=== PATIENT | female | born 1955 | race Caucasian/White ===

== ENCOUNTER 2019-02-04 00:27 | Emergency (ER) | payer OTHER ==
[~2019-02-04] VITALS: Ht 170.2 cm; Wt 83.9 kg
[~2019-02-04 00:27] MED LIST: AML5T PO; ASPI81CH43 PO; ATOR80TA PO; CAR125T OR; FAM20T PO; GABA300C10 PO; INSLANTI SC; LIRA18IN2 SC; LISI40TA PO; METF-372 PO
[2019-02-04] MEDS ORDERED: SODIUM CHLORIDE 0.9% 1,000 ML IV ONE (09:56)
[2019-02-04] MEDS ORDERED: GABAPENTIN 300 MG CAP PO ONE (10:45)
[2019-02-04 13:11] LABS: Urine Bacteria NONE SEEN /hpf (None Seen); Urine Blood Negative /uL (Negative); Urine Specific Gravity 1.015 (1.001-1.035); Urine WBC 14 /hpf (0 - 5)
[2019-02-04 13:26] LABS: Basophils # (auto) 0 uL; Basophils % (auto) 0.3 % (0.0-2.0); Eosinophils # (auto) 0 uL; Eosinophils % (auto) 0.4 % (0.0-7.0); Hemoglobin 12.9 g/dL (12.2-16.2); Lymphocytes # (auto) 1.7 uL; Lymphocytes % (auto) 16.5 % (10.0-50.0); Mean Corpuscular Hemoglobin 27.7 pg (28.0-32.0); Mean Corpuscular Hgb Conc. 32.2 g/dL (32.0-36.0); Mean Corpuscular Volume 86.2 fL (80.0-100.0); Monocytes # (auto) 0.8 uL; Monocytes % (auto) 8.3 % (0.0-12.0); Neutrophils # (auto) 7.7 uL; Neutrophils % (auto) 74.5 % (37.0-80.0); Nucleated Red Blood Cells % 0.7 %; Platelet Count (auto) 208 10^3/uL (140-450); Red Blood Cells 4.65 10^6/uL (4.0-5.20); Red Cell Distribution Width 17.3 % (11.8-14.3); White Blood Cell 10.3 10^3/uL (4.4-10.8)
[2019-02-04 13:40] LABS: INR 1.18 (0.9-1.15)
[2019-02-04 13:43] LABS: Albumin 3.1 g/dL (3.4-5.0); Calcium 8.8 mg/dL (8.5-10.1); Potassium 3.4 mmol/L (3.5-5.1)
[2019-02-04 13:54] LABS: BUN/Creatinine Ratio 28.8; Bilirubin, Total 1.5 mg/dL (0.2-1.0); Total Protein 6.5 g/dL (6.4-8.2)
[2019-02-04 15:27] VITALS: BP 150/72
== END 2019-02-04 15:36 | disposition home or self-care (01) ==
LOC: EDBD 00:27 → ER 00:31
DX: N39.0 Urinary tract infection, site not specified (principal); F03.90 Unspecified dementia, unspecified severity, without behavioral disturbance, psychotic disturbance, mood disturbance, and anxiety; R41.82 Altered mental status, unspecified; I25.2 Old myocardial infarction; I11.0 Hypertensive heart disease with heart failure; I50.9 Heart failure, unspecified; J44.9 Chronic obstructive pulmonary disease, unspecified; Z79.4 Long term (current) use of insulin; Z88.8 Allergy status to other drugs, medicaments and biological substances
CPT/HCPCS: 36415; 70450; 71045; 80053; 81001; 83880; 84484; 85025; 85610; 85730; 93005; 96360; 96361; 99284; J7030

== ENCOUNTER 2019-02-06 10:55 | Inpatient (IN) | payer OTHER ==
[~2019-02-06] VITALS: Ht 162.6 cm; Wt 91.7 kg
[2019-02-06] MEDS ORDERED: IPRATROPIUM BROM 0.5 MG/2.5ML INH SOL HHN ONE (11:15)
[2019-02-06] MEDS ORDERED: ALBUTEROL SULF 2.5 MG/0.5ML(0.5%) NEB SOLN HHN ONE (11:15)
[2019-02-06] MEDS ORDERED: methylPREDNISolone SOD SUCC 125 MG/2 ML VL IV ONE (11:15)
[2019-02-06 12:04] LABS: Basophils # (auto) 0 uL; Basophils % (auto) 0.1 % (0.0-2.0); Eosinophils # (auto) 0 uL; Hematocrit 38.2 % (36.0-46.0); Hemoglobin 12.2 g/dL (12.2-16.2); Lymphocytes # (auto) 0.8 uL; Lymphocytes % (auto) 7.3 % (10.0-50.0); Mean Corpuscular Hemoglobin 27.5 pg (28.0-32.0); Mean Corpuscular Volume 86.2 fL (80.0-100.0); Monocytes # (auto) 0.5 uL; Monocytes % (auto) 4.4 % (0.0-12.0); Neutrophils % (auto) 88.2 % (37.0-80.0); Nucleated Red Blood Cells % 0.1 %; Platelet Count (auto) 191 10^3/uL (140-450); Red Blood Cells 4.43 10^6/uL (4.0-5.20); Red Cell Distribution Width 17.3 % (11.8-14.3); White Blood Cell 11.4 10^3/uL (4.4-10.8)
[2019-02-06 12:27] LABS: Albumin 3.1 g/dL (3.4-5.0); BUN/Creatinine Ratio 27.3; Bilirubin, Total 1.7 mg/dL (0.2-1.0); Calcium 8.7 mg/dL (8.5-10.1); Magnesium 2.1 mg/dL (1.6-2.6); Total Protein 6.5 g/dL (6.4-8.2)
[2019-02-06] MEDS ORDERED: MORPHINE SULF INJ 2 MG/ML SYRINGE 1ML IV PRN (14:00)
[2019-02-06] MEDS ORDERED: DEXTROSE (50%) 50ML SYRG IV PRN (14:00)
[2019-02-06] MEDS ORDERED: HYDROcodone-ACET 5/325MG TAB PO PRN (14:00)
[2019-02-06] MEDS ORDERED: NITROGLYCERIN 0.4 MG SL TAB SL PRN (14:00)
[2019-02-06] MEDS: SOD CHL 0.9%/ KCL 20MEQ 1,000 ML IV SCH (14:40)
[2019-02-06] MEDS ORDERED: InsuLIN REG 1unit/0.01ml Soln (100units/ml) SC SCH (16:00)
[2019-02-06] MEDS ORDERED: InsuLIN REG 1unit/0.01ml Soln (100units/ml) IV ONE (16:30)
[2019-02-06] MEDS ORDERED: InsuLIN REG 1unit/0.01ml Soln (100units/ml) SC ONE (16:30)
[2019-02-06 16:34] LABS: Urine Bacteria NONE SEEN /hpf (None Seen); Urine Blood Negative /uL (Negative); Urine Hyaline Cast FEW /lpf (0 - 2); Urine Specific Gravity 1.025 (1.001-1.035); Urine WBC 1 /hpf (0 - 5)
[2019-02-06] MEDS ORDERED: InsuLIN REG 1unit/0.01ml Soln (100units/ml) ONE (16:34)
[2019-02-06] MEDS: ACCU-CHEK COMFORT CURVE STRIP VI SCH ×2 (16:39→21:31)
[2019-02-06] MEDS: IPRATROPIUM BROM 0.5 MG/2.5ML INH SOL NEB SCH (18:56)
[2019-02-06] MEDS: ALBUTEROL SULF 2.5 MG/0.5ML(0.5%) NEB SOLN NEB SCH (18:56)
[2019-02-06] MEDS: InsuLIN REG 1unit/0.01ml Soln (100units/ml) SC SCH (21:31)
[2019-02-06] MEDS: methylPREDNISolone SOD SUCC 40 MG/ML VL IV SCH (22:34)
[2019-02-06 23:57] VITALS: BP 168/76
[2019-02-07] MEDS ORDERED: ENALAPRILAT 1.25 MG/ML-1ML VIAL IV ONE (01:00)
[2019-02-07] MEDS: InsuLIN REG 1unit/0.01ml Soln (100units/ml) SC SCH ×6 (01:02→21:09)
[2019-02-07] MEDS: ACCU-CHEK COMFORT CURVE STRIP VI SCH ×6 (01:03→21:08)
[2019-02-07] MEDS: SOD CHL 0.9%/ KCL 20MEQ 1,000 ML IV SCH ×2 (01:12→01:16)
[2019-02-07 03:41] LABS: BUN/Creatinine Ratio 27.1; Calcium 8.4 mg/dL (8.5-10.1)
[2019-02-07 04:01] LABS: Potassium 2.9 mmol/L (3.5-5.1)
[2019-02-07] MEDS ORDERED: FUROSEMIDE 20 MG/2 ML VIAL IV ONE (04:45)
[2019-02-07] MEDS: POTASSIUM CHL 20MEQ/100ML 100 ML IV SCH ×2 (05:12→06:47)
[2019-02-07] MEDS: ONDANSETRON HCL 4 MG/2 ML VIAL IV PRN (06:52)
[2019-02-07 06:59] LABS: Basophils # (auto) 0 uL; Basophils % (auto) 0.2 % (0.0-2.0); Eosinophils # (auto) 0 uL; Hematocrit 39.7 % (36.0-46.0); Hemoglobin 12.7 g/dL (12.2-16.2); Lymphocytes # (auto) 0.7 uL; Lymphocytes % (auto) 6.8 % (10.0-50.0); Mean Corpuscular Hemoglobin 27.8 pg (28.0-32.0); Mean Corpuscular Hgb Conc. 31.9 g/dL (32.0-36.0); Monocytes # (auto) 0.4 uL; Monocytes % (auto) 3.7 % (0.0-12.0); Neutrophils # (auto) 8.6 uL; Neutrophils % (auto) 89.3 % (37.0-80.0); Nucleated Red Blood Cells % 0.3 %; Platelet Count (auto) 181 10^3/uL (140-450); Red Blood Cells 4.57 10^6/uL (4.0-5.20); Red Cell Distribution Width 17.9 % (11.8-14.3); White Blood Cell 9.6 10^3/uL (4.4-10.8)
[2019-02-07] MEDS: ALBUTEROL SULF 2.5 MG/0.5ML(0.5%) NEB SOLN NEB SCH ×3 (07:10→18:04)
[2019-02-07] MEDS: IPRATROPIUM BROM 0.5 MG/2.5ML INH SOL NEB SCH ×3 (07:10→18:04)
[2019-02-07 07:14] LABS: BUN/Creatinine Ratio 23.9; Calcium 8.4 mg/dL (8.5-10.1); Potassium 3.3 mmol/L (3.5-5.1)
[2019-02-07] MEDS: FAMOTIDINE 20 MG TAB PO SCH (09:33)
[2019-02-07] MEDS: AZITHROMYCIN 500MG/ 250ML 250 ML IV SCH (09:33)
[2019-02-07] MEDS: cefTRIAXone 1GM/50ML D5W 50 ML IV SCH (09:34)
[2019-02-07] MEDS: methylPREDNISolone SOD SUCC 40 MG/ML VL IV SCH ×2 (09:36→23:15)
[2019-02-07] MEDS ORDERED: ALBUTEROL MEDNEB 2.5 mg/3ml NEB ONE (11:29)
[2019-02-07] MEDS ORDERED: ASPirin-EC 325mg tab PO ONE (13:00)
[2019-02-07] MEDS ORDERED: ATORVASTATIN 20 MG TAB PO ONE (13:00)
--- NOTE | 2019-02-07 13:59 | NUR ---
I faxed transfer request to [facility].
[2019-02-07] MEDS: ENOXAPARIN SOD 100 MG/1 ML SYRINGE SC SCH ×2 (14:52→23:17)
--- NOTE | 2019-02-07 14:55 | NUR ---
TRANSFER Shasta and I are both working on transferring this pt. I spoke to Carlita at [facility] and she stated to fax paperwork over to her at [phone] and ph # is [phone]. Carlita stated they are full at present and may have d/c tonight.
--- NOTE | 2019-02-07 15:14 | NUR ---
I called [facility] [phone] and spoke with warehouse receiving clerk Flor, she said they have no beds available at this time and have several patients waiting in their ER for a bed. I also spoke with Dr. Mora to let her know that most likely patient will not be transferred today but that we are working on it.
--- NOTE | 2019-02-07 15:22 | NUR ---
[facility] IS ON WILL CALL
[2019-02-07] MEDS ORDERED: FUROSEMIDE 40 MG/4 ML VIAL IV ONE (18:00)
[2019-02-08] VITALS (8 sets, daily range): BP systolic 138–149; BP diastolic 31–69
[2019-02-08] MEDS: ACCU-CHEK COMFORT CURVE STRIP VI SCH ×6 (00:17→20:00)
[2019-02-08] MEDS: InsuLIN REG 1unit/0.01ml Soln (100units/ml) SC SCH ×6 (00:18→21:07)
[2019-02-08] MEDS: MORPHINE SULF INJ 2 MG/ML SYRINGE 1ML IV PRN ×2 (01:57→18:34)
[2019-02-08] MEDS: ONDANSETRON HCL 4 MG/2 ML VIAL IV PRN (01:57)
[2019-02-08 05:48] LABS: Basophils # (auto) 0.1 uL; Basophils % (auto) 0.6 % (0.0-2.0); Eosinophils # (auto) 0 uL; Hematocrit 35.8 % (36.0-46.0); Hemoglobin 11.4 g/dL (12.2-16.2); Lymphocytes # (auto) 0.5 uL; Lymphocytes % (auto) 3.1 % (10.0-50.0); Mean Corpuscular Hemoglobin 27.4 pg (28.0-32.0); Mean Corpuscular Hgb Conc. 31.8 g/dL (32.0-36.0); Mean Corpuscular Volume 86.1 fL (80.0-100.0); Monocytes # (auto) 0.4 uL; Monocytes % (auto) 2.3 % (0.0-12.0); Neutrophils # (auto) 15.8 uL; Nucleated Red Blood Cells % 0.1 %; Platelet Count (auto) 166 10^3/uL (140-450); Red Blood Cells 4.16 10^6/uL (4.0-5.20); Red Cell Distribution Width 16.9 % (11.8-14.3); White Blood Cell 16.8 10^3/uL (4.4-10.8)
[2019-02-08 06:06] LABS: Albumin 2.8 g/dL (3.4-5.0); BUN/Creatinine Ratio 25.5; Calcium 8.4 mg/dL (8.5-10.1); Potassium 3.1 mmol/L (3.5-5.1)
[2019-02-08 06:08] LABS: Bilirubin, Total 0.9 mg/dL (0.2-1.0); Total Protein 6.3 g/dL (6.4-8.2)
[2019-02-08] MEDS: IPRATROPIUM BROM 0.5 MG/2.5ML INH SOL NEB SCH ×3 (07:30→18:07)
[2019-02-08] MEDS: ALBUTEROL SULF 2.5 MG/0.5ML(0.5%) NEB SOLN NEB SCH ×3 (07:30→18:07)
[2019-02-08] MEDS: FAMOTIDINE 20 MG TAB PO SCH (10:00)
[2019-02-08] MEDS ORDERED: FUROSEMIDE 40 MG/4 ML VIAL IV SCH (10:00)
[2019-02-08] MEDS: cefTRIAXone 1GM/50ML D5W 50 ML IV SCH (10:44)
[2019-02-08] MEDS: methylPREDNISolone SOD SUCC 40 MG/ML VL IV SCH ×2 (10:44→21:08)
[2019-02-08] MEDS ORDERED: ENOXAPARIN SOD 120 MG/0.8 ML SYRINGE SC ONE (10:48)
[2019-02-08] MEDS: AZITHROMYCIN 500MG/ 250ML 250 ML IV SCH (10:59)
[2019-02-08] MEDS: ENOXAPARIN SOD 100 MG/1 ML SYRINGE SC SCH (10:59)
[2019-02-08] MEDS ORDERED: POTASSIUM CHLORIDE 40 MEQ, LIDOCAINE 1% (LOCAL ANESTH.) 4 ML in SODIUM CHL 0.9% 100 ML IV ONE (12:00)
--- NOTE | 2019-02-08 14:30 | NUR ---
Received Patient from ER. Patient in room 263. Patient on the monitor. Patient unable to speak but can follow commands. Patient's left side of body is completely flaccid. Patient able to move right hand and foot on command but very weak. 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 IV right upper arm midline saline locked, patent, clean, dry and intact. Marques to gravity. Patient on bi-pap saturation at 95%. Patient's Dc thinks her last BM was on 02/01. Patient and family instructed on POC and to call for assist. Bed locked and in the lowest position, side rails up x2, call light with in reach. Patient denies any pain at this time. Will continue to monitor.
--- NOTE | 2019-02-08 16:45 | NUR ---
Patient resting at this time. Family at bedside. No S/S of pain/SOB or distress at this time. Will continue to monitor.
--- NOTE | 2019-02-08 18:20 | NUR ---
Urine sample sent to lab
--- NOTE | 2019-02-08 18:23 | NUR ---
End of shift note: Patient on the monitor. Patient unable to speak but can follow commands. IV right upper arm midline saline locked, patent, clean, dry and intact. Marques to gravity. Patient on bi-pap saturation at 97%. Bed locked and in the lowest position, side rails up x2, call light with in reach. Patient denies any pain at this time. Report to be given to slot shift manager RN. Will continue to monitor.
[2019-02-08 19:06] LABS: Calcium 8.5 mg/dL (8.5-10.1); Potassium 3.9 mmol/L (3.5-5.1)
[2019-02-08 19:09] LABS: BUN/Creatinine Ratio 27.9
[2019-02-08] MEDS: FUROSEMIDE 40 MG/4 ML VIAL IV SCH (21:09)
[2019-02-09] VITALS (28 sets, daily range): BP systolic 106–157; BP diastolic 35–93
[2019-02-09] MEDS: ENOXAPARIN SOD 100 MG/1 ML SYRINGE SC SCH ×3 (00:09→21:34)
[2019-02-09] MEDS: ACCU-CHEK COMFORT CURVE STRIP VI SCH ×6 (00:12→20:14)
[2019-02-09] MEDS: InsuLIN REG 1unit/0.01ml Soln (100units/ml) SC SCH ×6 (00:12→21:19)
--- NOTE | 2019-02-09 04:40 | NUR ---
Respiratory note: REMOVED PT FROM BIPAP AT THIS TIME AND PLACED ON 8L SM TO GIVE BREAK FROM BIPAP MASK. PULSE OX 92%, HR 60, RR 23
[2019-02-09] MEDS: ALBUTEROL SULF 2.5 MG/0.5ML(0.5%) NEB SOLN NEB SCH ×3 (06:50→20:43)
[2019-02-09] MEDS: IPRATROPIUM BROM 0.5 MG/2.5ML INH SOL NEB SCH ×3 (06:50→20:43)
[2019-02-09 07:33] LABS: Basophils # (auto) 0 uL; Basophils % (auto) 0.2 % (0.0-2.0); Eosinophils # (auto) 0 uL; Hematocrit 38.9 % (36.0-46.0); Hemoglobin 12.2 g/dL (12.2-16.2); Lymphocytes # (auto) 0.5 uL; Lymphocytes % (auto) 3.5 % (10.0-50.0); Mean Corpuscular Hemoglobin 27.8 pg (28.0-32.0); Mean Corpuscular Hgb Conc. 31.5 g/dL (32.0-36.0); Mean Corpuscular Volume 88.3 fL (80.0-100.0); Monocytes # (auto) 0.7 uL; Monocytes % (auto) 5.1 % (0.0-12.0); Neutrophils # (auto) 12.3 uL; Neutrophils % (auto) 91.2 % (37.0-80.0); Nucleated Red Blood Cells % 0.2 %; Platelet Count (auto) 188 10^3/uL (140-450); Red Cell Distribution Width 18.2 % (11.8-14.3); White Blood Cell 13.5 10^3/uL (4.4-10.8)
[2019-02-09 07:48] LABS: Albumin 3.1 g/dL (3.4-5.0); Calcium 9.1 mg/dL (8.5-10.1); Potassium 3.5 mmol/L (3.5-5.1)
[2019-02-09 07:51] LABS: BUN/Creatinine Ratio 31.7; Bilirubin, Total 0.9 mg/dL (0.2-1.0); Total Protein 6.8 g/dL (6.4-8.2)
--- NOTE | 2019-02-09 08:10 | NUR ---
Opening Shift Note Assumed care of patient, awake, non verbal, open her eyes, communication by closing her eye for answering the question. No S/S of distress/SOB. Instructed on POC, patient closed her eyes when asking about having pain or not, will continue to monitor for changes Q1hr and PRN. Reposition at this time, mouth care provided. On simple mask O2 saturation 90-95%.
--- NOTE | 2019-02-09 09:00 | NUR ---
Her and daughter at the bedside, plan of care discussed with families, they made aware.
[2019-02-09] MEDS: FUROSEMIDE 40 MG/4 ML VIAL IV SCH (09:46)
[2019-02-09] MEDS: cefTRIAXone 1GM/50ML D5W 50 ML IV SCH (09:47)
[2019-02-09] MEDS: methylPREDNISolone SOD SUCC 40 MG/ML VL IV SCH ×2 (09:47→21:33)
[2019-02-09] MEDS: AZITHROMYCIN 500MG/ 250ML 250 ML IV SCH (09:47)
[2019-02-09] MEDS: FAMOTIDINE 20 MG TAB PO SCH (09:51)
[2019-02-09] MEDS: MORPHINE SULF INJ 2 MG/ML SYRINGE 1ML IV PRN ×2 (09:54→18:02)
--- NOTE | 2019-02-09 10:00 | NUR ---
Repositioning, mouth care provided, continue simple mask 8 LPM, O2 saturation 92-95%. Families at the bedside.
--- NOTE | 2019-02-09 10:10 | NUR ---
Called and talked to pharmacist about Lovenox, made aware that medication is not available at this time, they will get and send it up [facility]. Family made aware.
--- NOTE | 2019-02-09 12:40 | NUR ---
Patient was taken to Radiologist for MRI brain, her families made aware.
--- NOTE | 2019-02-09 13:04 | NUR ---
TRANSFER FAXED TO [facility], [facility] AND [facility].
--- NOTE | 2019-02-09 13:15 | NUR ---
Patient came back from MRI, reposition, perineal area care provided due to leaking from Marques's catheter that kinking. When turning her on the side her saturation drop to 82-85%, then turn her back, need to keep her neck in the line to opening her air way then her O2 saturation came up to 95-97% with simple mask 8 lpm.
--- NOTE | 2019-02-09 13:40 | NUR ---
Paged Dr. Castañeda and received a call back from MD SHAUNA made aware about the MRI brain and Carotid Doppler result, Will wait for Swallow eval, okay to insert NG tube, possible will need PEG, continue Lovenox as ordered.
--- NOTE | 2019-02-09 14:45 | NUR ---
Dr. Coronado at the bedside, seen and examined patient at his time, plan of care discussed with patient and her , daughter, they are thinking about hospice, they will let us know. Received order for Pulmonary consult, ABG, will carry put, okay to insertion NG tube and start tube feeding. Families made aware.
--- NOTE | 2019-02-09 14:52 | NUR ---
ammy I called [facility] and got answering machine and left message to call me, I called [facility] and had to leave message for data warehouse manager, I have called [facility] and have spoken to Shasta who is in the process of giving me o/c carolyn [place] at [facility]
--- NOTE | 2019-02-09 15:09 | NUR ---
[facility] spoke to Shasta at [facility] and she stated a Dr. Bedolla is lease administration analyst for [employer] at [facility]. Dr. Bedolla to call Dr. Mora to discuss transfer . [facility] ph [phone]
--- NOTE | 2019-02-09 15:50 | NUR ---
Dr. Castañeda at the bedside, seen and examined patient at his time, plan of care discussed with her families (daughter and her ). Recommended that patient need to be seen by Speech therapist for swallow eval, if patient cannot pass the test may need eval for 1 more later before making the decision for PEG, MD made aware that already had Pulmonary consult, will continue to monitor and care.
--- NOTE | 2019-02-09 15:57 | NUR ---
[facility] I spoke to Jmaia at [facility] and pt's transportation is on "will call"
--- NOTE | 2019-02-09 16:15 | NUR ---
Speech therapist at the bedside. After finishing the test, mouth care provided, reposition as well.
--- NOTE | 2019-02-09 16:30 | NUR ---
Per pipe organ installer, recommended to Glucerna instead of Jevity due to Hx of DM. Goal is 60 ml/hr. Families made aware.
--- NOTE | 2019-02-09 16:32 | NUR ---
SWALLOW EVALUATED. FAMILY PRESENT. PATIENT HAS NATURAL TEETH, UPPER AND LOWER. PATIENT UNABLE TO INITIATE SWALLOW. UNSAFE FOR PO INTAKE AT THIS TIME. NURSING NOTIFIED.
--- NOTE | 2019-02-09 16:47 | NUR ---
assessment Patient is a 63 year old female who is aphasic. Per patients Dc prior to admission patient lived home with him and functioned independently. Patients PCP is Dr Heber Whitt. Patient has a fww, bedside commode, 02, and shower chair for home use. Dc is aware of MD order to transfer to in [facility]. Dc agreed to transfer. Dc verbalized understanding and agreed to discharge plan to in [facility]. Addendum: 02/09/19 at 1649 by Mariza GARCIA Amended: Links added.
[2019-02-09] MEDS ORDERED: ROCURONIUM 10MG/ML 10ML VIAL IV ONE ×2 (17:24→17:30)
[2019-02-09] MEDS ORDERED: ETOMIDATE (2MG/ML) 20ML VIAL IV ONE ×2 (17:25→17:30)
[2019-02-09] MEDS ORDERED: SODIUM CHLORIDE 0.9% 500 ML IV ONE (17:30)
--- NOTE | 2019-02-09 17:35 | NUR ---
Intubation by Dr. Bustamante, RT at the bedside, families made aware, NG tube inplace.
[2019-02-09] MEDS ORDERED: PROPOFOL 100 ML IV ONE (17:38)
[2019-02-09] MEDS: ACETAMINOPHEN 500 MG TAB PO PRN ×2 (17:58→21:18)
[2019-02-09] MEDS ORDERED: Jevity 1.2 Cal/Fiber 1 Liter GT SCH (18:00)
[2019-02-09] MEDS: PROPOFOL 100 ML IV SCH (18:03)
--- NOTE | 2019-02-09 18:31 | NUR ---
Unable to reposition of NG tube, hold tylenol at this time, families made aware that will start more sedation then will reposition again.
--- NOTE | 2019-02-09 19:30 | NUR ---
Opening Shift Note Assumed care of patient, lying on bed with eyes closed, intubated, sedated. Arousal by light pain/ touching, no eyes contact. Breathing even and nonlabored, synchronized to ventilator AC mode, No S/S of distress/SOB. NGT at right nare needed to re-position. Mid-line at left upper arm, CDI site, infusing Propofol at 10mcg and NS KVO. Marques's catheter hung to gravity with light cuco urine. Bed in low position, call light within reach, fall and safety precaution in place, all alarms are audible. No family at bed side at this time, will continue to monitor for changes Q1hr and PRN.
--- NOTE | 2019-02-09 19:45 | NUR ---
NGT re-position Attempted re-position NGT from right nare to left nare and to oral. Successful received positive placement of OGT, no residual noted, will obtained xray for re-check position.
--- NOTE | 2019-02-09 20:00 | NUR ---
Fever Temp 101.3F, cooling measures on, partial bath and linen changed to help decreased fever. After readjust NGT and confirm position, will administer Tylenol.
[2019-02-09] MEDS: fentaNYL Drip 2500mCg/250mlNS 250 ML IV SCH (20:37)
--- NOTE | 2019-02-09 20:45 | NUR ---
IV insertion IV access obtained, via clean sterile technique by inserting 22 gauge catheter at left hand after 1 attempt. IV secured properly. No trauma to site. Patient tolerated well.
--- NOTE | 2019-02-09 21:05 | NUR ---
SCD on to both legs for DVT prophylaxis.
[2019-02-09] MEDS: Glucerna 1.2 Cal 1Liter BOTTLE GT SCH (21:13)
--- NOTE | 2019-02-09 22:26 | NUR ---
See JEAN scale at IV spread sheet Addendum: 02/09/19 at 2228 by Pepe Vogel RN Amended: Links added.
--- NOTE | 2019-02-09 22:53 | NUR ---
Fever Paged Hospitalist for new fever.
[2019-02-10] VITALS (104 sets, daily range): BP systolic 90–142; BP diastolic 39–74
--- NOTE | 2019-02-10 | NUR ---
Tube feeding OGT checked, residual 20ml noted. Continue TF at 30ml/hr, will continue to monitor.
[2019-02-10] MEDS: ACCU-CHEK COMFORT CURVE STRIP VI SCH ×6 (03:23→19:55)
[2019-02-10] MEDS: InsuLIN REG 1unit/0.01ml Soln (100units/ml) SC SCH ×6 (03:25→19:56)
[2019-02-10] MEDS: PROPOFOL 100 ML IV SCH ×3 (03:25→21:58)
--- NOTE | 2019-02-10 04:00 | NUR ---
Tube feeding OGT checked, residual checked more than 60ml, decreased TF to 15ml/hr. Continue to monitor.
--- NOTE | 2019-02-10 05:10 | NUR ---
Patient bathe/linen change Patient given complete bath with CHG wipes. Skin integrity assessed for any changes, no new changes. Linens changed. Patient repositioned to prevent pressure ulcer. Pt tolerated well, opened her eyes with stimulation, stared at the ceiling, no eyes contact, no follow commands.
--- NOTE | 2019-02-10 05:45 | NUR ---
Tube feeding OGT checked, residual checked more than 60ml noted. Withheld TF at this time, will monitor and endorsed to next shift.
[2019-02-10 06:27] LABS: Basophils # (auto) 0.2 uL; Basophils % (auto) 1.1 % (0.0-2.0); Eosinophils # (auto) 0 uL; Hematocrit 37.4 % (36.0-46.0); Hemoglobin 11.6 g/dL (12.2-16.2); Lymphocytes # (auto) 0.3 uL; Mean Corpuscular Hemoglobin 27.5 pg (28.0-32.0); Mean Corpuscular Hgb Conc. 31.1 g/dL (32.0-36.0); Mean Corpuscular Volume 88.5 fL (80.0-100.0); Monocytes # (auto) 0.5 uL; Monocytes % (auto) 3.2 % (0.0-12.0); Neutrophils # (auto) 14.7 uL; Neutrophils % (auto) 93.7 % (37.0-80.0); Platelet Count (auto) 143 10^3/uL (140-450); Red Blood Cells 4.22 10^6/uL (4.0-5.20); Red Cell Distribution Width 18.5 % (11.8-14.3); White Blood Cell 15.7 10^3/uL (4.4-10.8)
[2019-02-10] MEDS: IPRATROPIUM BROM 0.5 MG/2.5ML INH SOL NEB SCH ×3 (06:29→19:04)
[2019-02-10] MEDS: ALBUTEROL SULF 2.5 MG/0.5ML(0.5%) NEB SOLN NEB SCH ×3 (06:29→19:04)
[2019-02-10 06:43] LABS: Albumin 2.8 g/dL (3.4-5.0); Calcium 8.5 mg/dL (8.5-10.1); Potassium 3.2 mmol/L (3.5-5.1)
[2019-02-10 06:46] LABS: BUN/Creatinine Ratio 34.6; Bilirubin, Total 0.9 mg/dL (0.2-1.0); Total Protein 6.2 g/dL (6.4-8.2)
--- NOTE | 2019-02-10 07:00 | NUR ---
Opening Shift Note Assumed care of patient FROM ABIMAEL GEORGE. PATIENT lying on bed with eyes closed, intubated, sedated. Breathing even and nonlabored, synchronized to ventilator AC mode, No S/S of distress/SOB. NGT at right naRE. Mid-line at left upper arm, CDI site, infusing Propofol at 11mcg and FENTANYL AT 50. Marques's catheter hung to gravity with light cuco urine. Bed in low position, call light within reach, fall and safety precaution in place, all alarms are audible. No family at bed side at this time, will continue to monitor for changes Q1hr and PRN.
--- NOTE | 2019-02-10 09:22 | NUR ---
Transfer: per Natalie at [facility], she has 22 holding in hospital 5 icu and 2 jason, and rest tele/ms pt will not go there today
--- NOTE | 2019-02-10 09:26 | NUR ---
Will need to talk with to see if Boone Cruz MD contacted her about this transfer
[2019-02-10] MEDS: cefTRIAXone 1GM/50ML D5W 50 ML IV SCH (09:31)
[2019-02-10] MEDS ORDERED: POTASSIUM EFFERVESENT TAB 25 MEQ GT ONE ×2 (10:00→17:00)
[2019-02-10] MEDS ORDERED: FUROSEMIDE 40 MG/4 ML VIAL IV SCH (10:00)
[2019-02-10] MEDS: AZITHROMYCIN 500MG/ 250ML 250 ML IV SCH (10:03)
[2019-02-10] MEDS: ENOXAPARIN SOD 100 MG/1 ML SYRINGE SC SCH ×2 (10:03→21:57)
[2019-02-10] MEDS: methylPREDNISolone SOD SUCC 40 MG/ML VL IV SCH (10:04)
[2019-02-10] MEDS: FAMOTIDINE 20 MG TAB PO SCH (10:04)
--- NOTE | 2019-02-10 10:20 | NUR ---
DR. JOSE HERE TO SEE PATIENT. SEE MD NOTES AND EMR FOR NEW ORDERS.
--- NOTE | 2019-02-10 10:45 | NUR ---
CARDIOLOGY CONSULT CARDIOLOGY CONSULT CALLED IN, DR. MCCABE IS PRELOAD SUPERVISOR MOLD CAPPER HELPER TODAY.
[2019-02-10] MEDS: FREE WATER GT SCH ×2 (11:37→17:30)
--- NOTE | 2019-02-10 12:34 | NUR ---
WOUND CARE NOTE: Wound care in to see patient due to low Tyrese score of 11 and intubation status putting patient to high risk for skin breakdown. Patient is 63 y/o female with admitting diagnosis of Metabolic Encephalopathy. Patient is resting in SDU bed in Rm. 263. She's intubated, sedated and mechanically ventilated. Patient appears to be in no pain using Inman Esparza Faces Pain Scale. Skin assessment done with the assistance of patient's nurse, ARIEL Cosme. No open wound noted other than multi intact ecchymosis to patient's bilateral arm; area is clean and dry, left open to air. No pressure injury noted. Patient is receiving BID/PRN cleaning and application of Barrier cream to sacral,buttocks as preventative. Patient has Nevaeh foam boot to BLE; bilateral heels has blanchable mild redness. Repositioned patient for comfort facing her Rt. side, redistributed pressure points with pillows. Patient tolerated well. RECOMMENDATION: Nursing to continue with BID/PRN cleaning and application of Barrier cream to sacral,buttocks as preventative per MD order, frequent turning and repositioning schedule as condition permits,redistribute pressure points with pillows, continue monitoring by wound care while patient is mechanically ventilated. Addendum: 02/10/19 at 1608 by Lenora Ragland RN Amended: Links added.
--- NOTE | 2019-02-10 13:11 | NUR ---
[facility] is still on "will call" and team has been upgraded to critical transport.
--- NOTE | 2019-02-10 13:33 | NUR ---
2D ECHO BEING DONE AT THIS TIME.
[2019-02-10] MEDS: fentaNYL Drip 2500mCg/250mlNS 250 ML IV SCH (17:29)
[2019-02-10] MEDS ORDERED: FUROSEMIDE 40 MG/4 ML VIAL IV ONE (18:00)
--- NOTE | 2019-02-10 18:37 | NUR ---
RT NOTE RECEIVED PT INTUBATED AND ON VENT V21 IN THE [facility] ON STATED SETTINGS. VENT IS PLUGGED TO RED OUTLET. ALARMS ARE ON AND AUDIBLE TO NURSING. AMBU BAG AT BEDSIDE AND CONNECTED TO O2 SOURCE. 7.5 ETT IS SECURED WITH BITE BLOCK ANCHORFAST AT 24 CM TO THE ORAL LEFT. PT WAS SUCTIONED FOR MODERATE GREEN/YELLOW RETURN RETURN. PT APPEARS COMFORTABLE AND TOLERATING VENT SETTINGS WELL AT THIS TIME. CONT ORDERED. POX 95% Addendum: 02/10/19 at 2046 by Jessica Smith RT Amended: Links added.
--- NOTE | 2019-02-10 18:55 | NUR ---
RT NOTE PT RECEIVED INLINE [facility]N [place] POST TRANSPORT. PT TOLERATES WELL. Addendum: 02/10/19 at 2050 by Jessica Smith RT Amended: Links added.
--- NOTE | 2019-02-10 18:55 | NUR ---
RT NOTE PT WAS TRANSPORTED TO ICU VIA AMBU BAG WITHOUT INCIDENT. PT WAS PLACED BACK ON VENT V21 ON PREVIOUS STATED SETTINGS. PT TOLERATED TRANSFER WELL. Addendum: 02/10/19 at 2050 by Jessica Smith RT Amended: Links added.
--- NOTE | 2019-02-10 19:00 | NUR ---
CHANGE OF ROOM PATIENT TRANSFERRED FROM ICU STATUS BED 263 TO ICU UNIT 110. PT INTUBATED ON MECHANICAL VENTILATOR. SEDATION INFUSING TO RIGHT UPPER ARM MIDLINE, PROPOFOL AT 15MCG, FENT AT 70MCG. VSS BP 112/60 HR 66 RR 18 02 98%. REPORT GIVEN TO NOC NURSE AT BEDSIDE, RN AWARE OF TRANSFER ORDERS.
--- NOTE | 2019-02-10 19:00 | NUR ---
OPENING NOTE ASSUMED CARE OF PATIENT AT THIS TIME. REPORT RECEIVED FROM DAY SHIFT RN. POC REVIEWED. HEAD TO TOE ASSESSMENT COMPLETE, SEE INTERVENTION SPREADSHEET FOR COMPLETE DETAILS. RECEIVED PT SEDATED, INTUBATED AT THIS TIME. VSS. SWANSON CATHETER DRAINING TO GRAVITY. OGT IN PLACE. IV SITES BENIGN. BED LOCKED AND IN LOWEST POSITION, SAFETY PRECAUTIONS IN PLACE. SUCTION AND BVM AT BEDSIDE. WILL MONITOR PT CAREFULLY.
--- NOTE | 2019-02-10 20:17 | NUR ---
RT NOTE ROUTINE VENT CHECK DONE. PT INTUBATED AND ON VENT V21 IN THE ICU ON STATED SETTINGS. VENT IS PLUGGED TO RED OUTLET. ALARMS ARE ON AND AUDIBLE TO NURSING. AMBU BAG AT BEDSIDE AND CONNECTED TO O2 SOURCE. 7.5 ETT IS SECURED WITH BITE BLOCK ANCHORFAST AT 24 CM TO THE ORAL CENTER. PT WAS SUCTIONED FOR SMALL YELLOW RETURN. PT APPEARS COMFORTABLE AND TOLERATING VENT SETTINGS WELL AT THIS TIME. CONT ORDERED. POX 95% Addendum: 02/10/19 at 2053 by Jessica Smith RT Amended: Links added.
[2019-02-10] MEDS: INSULIN LANTUS (GLARGINE) 1 /0.01ml (100units/ml) SC SCH (21:57)
--- NOTE | 2019-02-10 22:50 | NUR ---
RT NOTE ROUTINE VENT CHECK DONE. PT INTUBATED AND ON VENT V21 IN THE ICU ON STATED SETTINGS. VENT IS PLUGGED TO RED OUTLET. ALARMS ARE ON AND AUDIBLE TO NURSING. AMBU BAG AT BEDSIDE AND CONNECTED TO O2 SOURCE. 7.5 ETT IS SECURED WITH BITE BLOCK ANCHORFAST AT 24 CM TO THE ORAL CENTER. PT WAS SUCTIONED FOR SMALL YELLOW RETURN. PT APPEARS COMFORTABLE AND TOLERATING VENT SETTINGS WELL AT THIS TIME. CONT ORDERED. POX 94% Addendum: 02/11/19 at 0031 by Jessica Smith RT Amended: Links added.
[2019-02-11] VITALS (103 sets, daily range): BP systolic 89–148; BP diastolic 39–95
--- NOTE | 2019-02-11 00:03 | NUR ---
RT NOTE ROUTINE VENT CHECK DONE. PT INTUBATED AND ON VENT V21 IN THE ICU ON STATED SETTINGS. VENT IS PLUGGED TO RED OUTLET. ALARMS ARE ON AND AUDIBLE TO NURSING. AMBU BAG AT BEDSIDE AND CONNECTED TO O2 SOURCE. 7.5 ETT IS SECURED WITH BITE BLOCK ANCHORFAST AT 24 CM TO THE ORAL CENTER. PT APPEARS COMFORTABLE AND TOLERATING VENT SETTINGS WELL AT THIS TIME. CONT ORDERED. POX 93% Addendum: 02/11/19 at 0032 by Jessica Smith RT Amended: Links added.
--- NOTE | 2019-02-11 02:04 | NUR ---
RT NOTE ROUTINE VENT CHECK DONE. PT INTUBATED AND ON VENT V21 IN THE ICU ON STATED SETTINGS. VENT IS PLUGGED TO RED OUTLET. ALARMS ARE ON AND AUDIBLE TO NURSING. AMBU BAG AT BEDSIDE AND CONNECTED TO O2 SOURCE. 7.5 ETT IS SECURED WITH BITE BLOCK ANCHORFAST AT 24 CM TO THE ORAL CENTER. PT APPEARS COMFORTABLE AND TOLERATING VENT SETTINGS WELL AT THIS TIME. CONT ORDERED. POX 94% Addendum: 02/11/19 at 0335 by Jessica Smith RT Amended: Links added.
[2019-02-11 03:59] LABS: Basophils # (auto) 0 uL; Basophils % (auto) 0.1 % (0.0-2.0); Eosinophils # (auto) 0 uL; Eosinophils % (auto) 0.1 % (0.0-7.0); Hematocrit 34.6 % (36.0-46.0); Hemoglobin 10.9 g/dL (12.2-16.2); Lymphocytes # (auto) 0.5 uL; Lymphocytes % (auto) 4.9 % (10.0-50.0); Mean Corpuscular Hemoglobin 27.3 pg (28.0-32.0); Mean Corpuscular Hgb Conc. 31.4 g/dL (32.0-36.0); Mean Corpuscular Volume 86.8 fL (80.0-100.0); Monocytes # (auto) 0.6 uL; Monocytes % (auto) 5.1 % (0.0-12.0); Neutrophils # (auto) 9.8 uL; Neutrophils % (auto) 89.8 % (37.0-80.0); Platelet Count (auto) 126 10^3/uL (140-450); Red Blood Cells 3.99 10^6/uL (4.0-5.20); Red Cell Distribution Width 18.3 % (11.8-14.3); White Blood Cell 10.9 10^3/uL (4.4-10.8)
[2019-02-11] MEDS: ACCU-CHEK COMFORT CURVE STRIP VI SCH ×7 (04:07→23:36)
--- NOTE | 2019-02-11 04:07 | NUR ---
RESIDUALS 2000: 15 MLS 0000: 10 MLS 0400: 0 MLS TF RUNNING CONTINUOUSLY AT 15 MLS/HR.
[2019-02-11] MEDS: InsuLIN REG 1unit/0.01ml Soln (100units/ml) SC SCH ×7 (04:08→23:41)
--- NOTE | 2019-02-11 04:10 | NUR ---
RT NOTE ROUTINE VENT CHECK DONE. PT INTUBATED AND ON VENT V21 IN THE ICU ON STATED SETTINGS. VENT IS PLUGGED TO RED OUTLET. ALARMS ARE ON AND AUDIBLE TO NURSING. AMBU BAG AT BEDSIDE AND CONNECTED TO O2 SOURCE. 7.5 ETT IS SECURED WITH BITE BLOCK ANCHORFAST AT 24 CM TO THE ORAL CENTER. PT APPEARS COMFORTABLE AND TOLERATING VENT SETTINGS WELL AT THIS TIME. HME CHANGED WITHOUT INCIDENT. CONT ORDERED. POX 94% Addendum: 02/11/19 at 0434 by Jessica Smith RT Amended: Links added.
[2019-02-11 04:16] LABS: Calcium 8.5 mg/dL (8.5-10.1); Potassium 3.6 mmol/L (3.5-5.1)
[2019-02-11 04:18] LABS: BUN/Creatinine Ratio 45.5
[2019-02-11] MEDS: IPRATROPIUM BROM 0.5 MG/2.5ML INH SOL NEB SCH ×3 (05:55→18:07)
[2019-02-11] MEDS: ALBUTEROL SULF 2.5 MG/0.5ML(0.5%) NEB SOLN NEB SCH ×3 (05:55→18:07)
[2019-02-11] MEDS: FREE WATER GT SCH ×4 (06:12→18:16)
[2019-02-11] MEDS: FUROSEMIDE 40 MG/4 ML VIAL IV SCH ×2 (06:12→18:16)
[2019-02-11] MEDS: PROPOFOL 100 ML IV SCH ×2 (07:00→14:14)
--- NOTE | 2019-02-11 07:30 | NUR ---
ASSESSMENT PT RESTING IN BED WITH EYES CLOSED, SEDATED ON FENTANYL AND PROPOFOL WHILE ON THE VENTILATOR. NO SPONTANEOUS MOVEMENT NOTED, BUT DOES HAVE A + COUGH/GAG WITH ETT SUCTIONING. PUPILS: LEFT EYE WITH CATARACT AND RIGHT EYE 5 AND BRISK. VENTILATOR SETTINGS OF: 7.5 FR ETT/ 24 AT THE LIP, AC 18, 30% FIO2, TV 450 AND PEEP OF 5. LUNGS WITH INSPIRATORY WHEEZING AND EXPIRATORY RHONCHI. O2 SAT OF 96% WITH RR 20. TELE 100% PACED AT 60 WITH UNDERLYING ATRIAL FLUTTER WITH ST ELEVATION IN LEADS II AND V. PALPABLE PULSES TO ALL EXTREMITIES. SCDS TO RLE AND BECKI BOOTS TO BLE TO PROTECT HEELS. OGT WITH + PLACEMENT AND RESIDUAL OF 5 ML. FEEDING WAS OFF AFTER FREE WATER GIVEN AT 0600. RESTARTED AT GLUCERNA 15 ML/HR. MONITOR FOR RESIDUAL. LAST BM WAS 02/01 PER REPORT. TURNED FOR COMFORT TO HER RIGHT SIDE. OPTIFOAM TO SACRUM, SKIN UNDER DRESSING IS CLEAR OF BREAKDOWN. RAILS UP X4 AND BED IN LOW POSITION FOR PT SAFETY.
--- NOTE | 2019-02-11 07:30 | NUR ---
REPORT REPORT RECEIVED FROM PARVIZ RNLEILA. BEDSIDE CHECK DONE.
[2019-02-11] MEDS: fentaNYL Drip 2500mCg/250mlNS 250 ML IV SCH (07:42)
[2019-02-11] MEDS: ENOXAPARIN SOD 100 MG/1 ML SYRINGE SC SCH ×2 (10:19→21:35)
[2019-02-11] MEDS: FAMOTIDINE 20 MG TAB PO SCH (10:19)
--- NOTE | 2019-02-11 10:59 | NUR ---
ROUNDS DR WATERMAN HERE TO SEE THE PT. UPDATED HIM ON HER CURRENT CONDITION AND THAT ANTIBIOTICS PREVIOUSLY DC'D AND SPUTUM CULTURE CAME BACK TODAY + FOR PSEUDOMONAS AERUGINOSA. HE ASKED ME TO ORDER VANCOMYCIN AND MEROPENEM PER PHARMACY PROTOCOL. HE IS ALSO RECOMMENDING A CPAP TRIAL AND WANTS ME TO MAKE DR HERMAN AWARE WHEN HE ROUNDS. Addendum: 02/11/19 at 1106 by Lesley Alexandre RN 1102- SPOKE WITH CHESTER, PHARMACIST, AND LET HIM KNOW THAT DR ROSEN WANTS THE PHARMACY TO DOSE BOTH THE VANCOMYCIN AND MEROPENEM. AFTER REVIEWING THE PT'S RECORDS, CHESTER ASKED THAT I PLACE AN ORDER FOR MEROPENEM 1 GRAM IVPB Q 8HRS AND HE WILL CALCULATE THE VANCOMYCIN DOSE AND PLACE THE ORDER.
[2019-02-11] MEDS ORDERED: VANCOMYCIN PER PHARMACY 0 MG IV SCH (11:00)
--- NOTE | 2019-02-11 11:15 | NUR ---
[facility] COUNTER HAND HERE AND MADE HER AWARE THAT PT , PER REPORT, FRIED HIGH RESIDUALS YESTERDAY AND SO HAVE BEEN INFUSING THE FEEDING AT A LOWER RATE. WAS AT 15 ML/HR THIS AM AND AT 1000, INCREASED TO 20 ML/HR RESIDUA OF ONLY 5 ML. SHE WILL REDUCE THE GOAL RATE PROPOFOL INFUSING AT A HIGHER RATE THAN SHE WAS AWARE. CONTINUE TO MONITOR.
[2019-02-11] MEDS ORDERED: VANCOMYCIN 1GM/250ML 250 ML IV ONE (11:30)
[2019-02-11] MEDS: MEROPENEM 1GM IVPB 100 ML IV SCH ×2 (14:13→21:34)
--- NOTE | 2019-02-11 16:11 | NUR ---
Nutrition Assessment Notes Please refer to link for full assessment notes Est energy needs: 2534-6183 kcals (17-20 kcals/kgBW) Est protein needs: 67-84 gms/day ( 0.8-1.0 gm/kg BW) Will continue to monitor and reassess prn EN support: Glucerna 1.2 @ 45 ml/hr with current administered rate of propofol Addendum: 02/11/19 at [address] Amended: Links added.
--- NOTE | 2019-02-11 17:41 | NUR ---
PT REPOSITIONED FOR COMFORT TO HER BACK. STILL ON THE SAME VENTILATOR SETTINGS. 96% O2 SAT. LAVAGED AND SUCTIONED FOR SMALL AMOUNT OF THICK PALE CREAMY YELLOW SECRETIONS VIA ETT. REMAINS SEDATED ON FENTANYL AT 70 MCG/HR AND DIPRIVAN AT 14.96 MCG/KG/MIN. FEEDING VIA OGT WITH NO RESIDUAL NOTED AND SO INCREASED TO 40 ML/HR.
--- NOTE | 2019-02-11 18:07 | NUR ---
Respiratory note: RECEIVED PT ON VENT V21, VENT CONNECTED TO RED OUTLET AND O2 SOURCE, ALARMS ARE SET AND AUDIBLE AMBU BAG AND MASK AT BEDSIDE. BS ARE FINE COURSE NO SX DONE AT THIS TIME, ARIEL RIGGS AT BEDSIDE AND HAS JUST SXD FOR THICK CREAMY QUIJANO. RT NAME AND PAGER ASSIGNMENT WRITTEN ON PTS ROOM BOARD. WILL CONTINUE TO MONITOR.
--- NOTE | 2019-02-11 18:22 | NUR ---
BP OF 98/48. WILL ADMINISTER LASIX 10 MG AT A TIME BP TOLERATES IT.
--- NOTE | 2019-02-11 19:43 | NUR ---
REPORT REPORT GIVEN TO ARNEL JJ RN.
--- NOTE | 2019-02-11 19:55 | NUR ---
OPEN SHIFT NOTE PATIENT IS RESTING IN BED, SEDATED AND MECHANICALLY VENTED: SEE INTERVENTIONS FOR SETTINGS AND COMPLETE PHYSICAL ASSESSMENT.PATIENT WITH INTACT CAG REFLEX WHEN SUCTIONING: CREAMY/QUIJANO SECRETIONS. PATIENT NOTED TO RETRACT TO PAIN. OGT IN PLACE, VERIFIED PLACEMENT WITH AUSCULTATION, RESIDUALS APPROX 5CC/HR . RIGHT UPPER ARM MIDLINE AND RIGHT HAND 22G IV BOTH FLUSHED AND PATENT.SWANSON CATHETER TO GRAVITY DRAINING STRAW COLORED URINE WITH MINIMAL SEDIMENT.PATIENT SKIN ASSESSED AND PATIENT TURNED FOR COMFORT AND PRESSURE RELIEF. BED LOCKED IN LOWEST POSITION, CONTINUE POC AND MONITORING.
--- NOTE | 2019-02-11 20:03 | NUR ---
Respiratory note: ROUTINE VENT CHECK DONE AT THIS TIME. NO CHANGES MADE. WILL CONTINUE TO MONITOR.
[2019-02-11] MEDS: INSULIN LANTUS (GLARGINE) 1 /0.01ml (100units/ml) SC SCH (21:34)
--- NOTE | 2019-02-11 22:04 | NUR ---
Respiratory note: ROUTINE VENT CHECK. SXD VIA ETT FOR SMALL THICK QUIJANO/CREAMY SECRETIONS, NO VENT CHANGES MADE AT THIS TIME.
[2019-02-12] VITALS (95 sets, daily range): BP systolic 90–158; BP diastolic 46–130
[2019-02-12] MEDS: PROPOFOL 100 ML IV SCH (00:28)
--- NOTE | 2019-02-12 02:02 | NUR ---
Respiratory note: AT BEDSIDE FOR ROUTINE VENT CHECK. HME AND SX CATHETER CHANGED AT THIS TIME. NO VENT CHANGES MADE AT THIS TIME. WILL CONTINUE TO MONITOR.
[2019-02-12] MEDS: InsuLIN REG 1unit/0.01ml Soln (100units/ml) SC SCH ×5 (03:36→20:00)
[2019-02-12] MEDS: ACCU-CHEK COMFORT CURVE STRIP VI SCH ×5 (03:36→20:00)
--- NOTE | 2019-02-12 04:30 | NUR ---
AM CARE COMPLETE BED BATH PROVIDED, ORAL CARE PERFORMED, PATIENT TOLERATED WELL. SKIN REASSESSED AT THIS TIME FOR ANY CHANGES: NO NEW CHANGES NOTED, ZGUARD BARRIER CREAM APPLIED TO SACRUM AND NEW OPTIFOAM IN PLACE. PATIENT REPOSITIONED IN BED FOR COMFORT.CONTINUE MONITORING.
[2019-02-12 04:39] LABS: Basophils # (auto) 0 uL; Basophils % (auto) 0.2 % (0.0-2.0); Eosinophils # (auto) 0 uL; Eosinophils % (auto) 0.3 % (0.0-7.0); Hematocrit 35.2 % (36.0-46.0); Lymphocytes # (auto) 0.8 uL; Mean Corpuscular Hemoglobin 27.6 pg (28.0-32.0); Mean Corpuscular Hgb Conc. 31.2 g/dL (32.0-36.0); Mean Corpuscular Volume 88.4 fL (80.0-100.0); Monocytes # (auto) 0.7 uL; Monocytes % (auto) 7.5 % (0.0-12.0); Neutrophils # (auto) 7.7 uL; Nucleated Red Blood Cells % 0.2 %; Platelet Count (auto) 119 10^3/uL (140-450); Red Blood Cells 3.98 10^6/uL (4.0-5.20); Red Cell Distribution Width 18.4 % (11.8-14.3); White Blood Cell 9.3 10^3/uL (4.4-10.8)
[2019-02-12 04:54] LABS: INR 1.05 (0.9-1.15); Partial Thromboplastin Time 45.3 sec (23.64-32.05)
[2019-02-12 05:09] LABS: Potassium 3.1 mmol/L (3.5-5.1)
[2019-02-12 05:14] LABS: Albumin 2.1 g/dL (3.4-5.0); Calcium 8.3 mg/dL (8.5-10.1); Magnesium 2.3 mg/dL (1.6-2.6); Phosphorus 2.8 mg/dL (2.5-4.90); Total Protein 5.7 g/dL (6.4-8.2)
[2019-02-12] MEDS: FUROSEMIDE 40 MG/4 ML VIAL IV SCH ×2 (05:35→17:13)
[2019-02-12] MEDS: MEROPENEM 1GM IVPB 100 ML IV SCH ×3 (05:35→22:00)
--- NOTE | 2019-02-12 05:53 | NUR ---
HOSPITALIST PAGED FOR POTASSIUM REPLACEMENT THIS MORNING
--- NOTE | 2019-02-12 05:55 | NUR ---
SPOKE WITH HOSPITALIST, DR VIEIRA OVER THE PHONE. NEW TELEPHONE ORDERS READ BACK AND VERIFIED FOR 40 MEQ K RIDER IV X1.
[2019-02-12] MEDS ORDERED: POTASSIUM CHL 20MEQ/100ML 100 ML IV ONE ×2 (06:00→09:45)
--- NOTE | 2019-02-12 06:30 | NUR ---
RESIDUALS FROM FEEDINGS: 10CC GLUCERNA FEEDINGS INCREASED TO GOAL : 45CC/HR CONTINUE MONITORING
[2019-02-12] MEDS: IPRATROPIUM BROM 0.5 MG/2.5ML INH SOL NEB SCH ×3 (06:47→18:20)
[2019-02-12] MEDS: ALBUTEROL SULF 2.5 MG/0.5ML(0.5%) NEB SOLN NEB SCH ×3 (06:47→18:20)
--- NOTE | 2019-02-12 06:54 | NUR ---
Respiratory note: RECEIVED PATIENT ON V21 V200 VENT ORALLY INTUBATED WITH A 7.5 ETT SECURED VIA JOSE GUADALUPE AT THE 24CM MARKING AT THE LIP, AND MECHANICALLY VENTILATED WITH THE CHARTED SETTINGS. SPO2 97%, LUNG SOUNDS DIM T/O, NO SECRETIONS WHEN SUCTIONED. SKIN IS WARM/DRY TO THE TOUCH AND IS INTACT NEAR JOSE GUADALUPE SITE. THERE IS AN OGT IN PLACE AND SECURED TO THE ETT, AND A MIDLINE CATHETER IS PLACED IN THE RIGHT BICEP. NON PITTING EDEMA NOTED IN BILATERAL UPPER EXTREMITIES, WITH PITTING EDEMA IN THE HANDS. LOWER EXTREMITIES ARE PRESENTING WITH +2 PITTING EDEMA. NO NEW AM CXR TO ASSESS AT THIS TMIE. PATIENT IS UNRESPONSIVE TO BOTH VERBAL/TACTILE STIMULI AND IS SEDATED ON PROPOFOL AND FENTANYL DRIPS. SHE IS RESTING COMFORTABLY AND TOLERATING VENT WELL, NO CHANGES MADE. VENT PLUGGED INTO RED OUTLET AND ALL ALARMS ARE SET AND AUDIBLE. WILL CONTINUE TO ASSESS PATIENT WELL VENTILATOR FUNCTION. MED-NEB RUN INLINE, ABG DRAWN.
--- NOTE | 2019-02-12 07:03 | NUR ---
END OF SHIFT NOTE PATIENT RESTING IN BED WITH NO S/S OF DISTRESS OR SOB, INFUSING FENT AT 50MCG AND PROP AT 5MCG. PATIENT AWAKENS/OPENS EYES BUT DOES NOT TRACK OR FOLLOW COMMANDS AT THIS TIME. PATIENT CONTINUES TO RETRACT FROM PAIN WITH FACIAL GRIMACING. REMAINED STABLE THROUGHOUT THE NIGHT WITH NO MAJOR EVENTS. VSS: SEE SPREADSHEET. WILL CONTINUE TO MONITOR AND ENDORSE CARE TO DAY SHIFT RN.
--- NOTE | 2019-02-12 07:28 | NUR ---
CARE ENDORSED TO ARIEL CALI
--- NOTE | 2019-02-12 07:45 | NUR ---
REPORT RECEIVED PATIENT VENTED/ SEDATED, TOLERATING VENTILATOR WELL. IV TO RIGHT ARM AND RIGHT HAND PATENT. SWANSON DRAINING TO GRAVITY. TUBE FEEDINGS ON HOLD FOR CPAP TRIAL, NO GASTRIC RESIDUAL NOTED. ABD SOFT, NO FACIAL GRIMACING UPON PALPATION. GENERAL SKIN INTACT. ECCHYMOSIS NOTED TO BILATERAL UPPER ARM. SACRUM INTACT WITH OPTIFOAM IN PLACE PREVENTATIVE. BED IN LOWEST POSITION, BED ALARM ON. PER REPORT ADDITIONAL 20MEQ K RIDER PENDING. PENDING TRANSFER AT THIS TIME. NO BED REPORT AT THIS TIME. SEE FURTHER INTERVENTIONS FOR DETAILS/ NOTES.
--- NOTE | 2019-02-12 08:45 | NUR ---
Family updated on pt status Family of DELONTE MATSON updated on patient's status and condition. All questions and concerns addressed. Daughter verbalized understanding after pw verified.
[2019-02-12] MEDS: FAMOTIDINE 20 MG TAB PO SCH (09:59)
[2019-02-12] MEDS: ENOXAPARIN SOD 100 MG/1 ML SYRINGE SC SCH ×2 (10:00→22:05)
--- NOTE | 2019-02-12 10:00 | NUR ---
SEDATION OFF PATIENT OPENS EYES TO LIGHT TOUCH, NOT YET TRACKING. SEDATION OFF FOR CPAP TRIAL. PT TOLERATING VENTILATOR WELL AT THIS TIME.
--- NOTE | 2019-02-12 10:00 | NUR ---
Family updated on pt status Family of DELONTE MATSON updated on patient's status and condition. All questions and concerns addressed. Sister via phone verbalized understanding after pw obtained.
[2019-02-12] MEDS: VANCOMYCIN 1GM/250ML 250 ML IV SCH (12:10)
--- NOTE | 2019-02-12 14:00 | NUR ---
POWER HAMMER OPERATOR AT BEDSIDE DR. HERMAN AT BEDSIDE. MD UPDATED ON PATIENTS STATUS. PATIENT CONTINUES TO OPEN EYES TO VOICE. FOLLOWS COMMAND BY SQUEEZING ONLY RIGHT HAND WHEN REQUESTED, LEFT ARM FLACCID WITH NO X [employer] WIRING TECHNICIAN NOTED. PATIENT THEN GOES BACK TO SLEEP, NOT WAKING UP SPONTANEOUSLY. PT TO REMAIN OFF SEDATION. ONLY IVP PRN VERSED IF NEEDED. POSSIBLE CPAP IN A.M. TUBE FEEDINGS TO BE RESTARTED.
[2019-02-12] MEDS ORDERED: MIDAZOLAM HCL 1MG/1ML-2 ML VIAL IV PRN (14:15)
--- NOTE | 2019-02-12 14:56 | NUR ---
TUBE FEEDINGS RESTARTED PER GROUP EXERCISE MANAGER CPAP WILL BE HELD TODAY. PLACEMENT VERIFIED RORO AUSCULTATION. ASPIRATION PRECAUTION IN PLACE. RATE STARTED AT 20ML/HR.
--- NOTE | 2019-02-12 15:30 | NUR ---
Family updated on pt status Family of DELONTE MATSON updated on patient's status and condition. All questions and concerns addressed. verbalized understanding after pw verified.
[2019-02-12] MEDS ORDERED: POTASSIUM EFFERVESENT TAB 25 MEQ GT ONE (16:15)
--- NOTE | 2019-02-12 17:00 | NUR ---
FAMILY AT BEDSIDE.
[2019-02-12] MEDS: fentaNYL Drip 2500mCg/250mlNS 250 ML IV SCH (17:14)
[2019-02-12] MEDS: Glucerna 1.2 Cal 1Liter BOTTLE GT SCH (17:25)
--- NOTE | 2019-02-12 17:25 | NUR ---
TUBE FEEDINGS TOLERATED WELL. NO GASTRIC RESIDUAL NOTED. TF INCREASED TO 30ML/HR. ASPIRATION PRECAUTIONS IN PLACE.
--- NOTE | 2019-02-12 17:26 | NUR ---
Cooling Measures applied. Patient currently has temp of 100.3 , cooling measures in place.
--- NOTE | 2019-02-12 19:12 | NUR ---
OPEN RECEIVED REPORT AND ASSUMED CARE OF FEMALE PT ORALLY INTUBATED OFF SEDATION. PT IS CONNECTED TO ICU MONITORS, VS ARE STABLE, RR ARE EQUAL AND UNLABORED O2 SAT99%. PT SPONTANEOUSLY OPENS EYES BUT DOES NOT TRACK. PT NOT FOLLOWING COMMANDS AT THIS TIME. PT HAS PACE MAKER TO UPPER LT CHEST.PT HAS OGT RUNNING GLUCERNA AT 30ML/HR.OGT PLACEMENT IS VERIFIED. PT HAS R UPPER ARM MIDLINE, RT HAND 22G. LINES FLUSHED WITH NS, NO RESISTANCE NOTED, LINES PATENT AND ASYMPTOMATIC. PT HAS BRUISES TO BILATERAL UPPER EXTREMITIES.BECKI BOOTS ARE APPLIED TO BILATERAL FEET FOR SAFETY.. PTS HEELS ARE PINK BUT BLANCHABLE.PT HAS BILATER SCDS ON LOWER EXTREMITIES. PT HAS OPTI FOAM TO SACRUM A PREVENTIVE MEASURE. PILLOWS ARE IN PLACE UNDER JACQUES PROMINENCES FOR COMFORT AND SAFETY.BED IS IN LOWEST POSITION, WHEELS ARE LOCKED,SIDE RAILS UP X2, HOB 45* PT IS IN FULL VIEW OF RN STATION. WILL CONTINUE TO CARE FOR AND MONITOR.
--- NOTE | 2019-02-12 20:00 | NUR ---
BS INSULIN GIVEN TURNED FOR COMFORT AND SAFETY, ORAL CARE PROVIDED, BS 244 INSULIN GIVEN ACCORDING TO PRESCRIBED PROTOCOL. PT TOLERATED CARE. VS STABLE
[2019-02-12] MEDS: DOCUSATE ORAL LIQUID 100 MG/10 ML UD GT SCH (22:05)
[2019-02-12] MEDS: INSULIN LANTUS (GLARGINE) 1 /0.01ml (100units/ml) SC SCH (22:05)
--- NOTE | 2019-02-12 23:00 | NUR ---
PT TOLERATING FEEDING PT TOLERATING FEEDING, 10CC RESIDUAL
[2019-02-13] VITALS (60 sets, daily range): BP systolic 106–146; BP diastolic 40–111
[2019-02-13] MEDS: ACCU-CHEK COMFORT CURVE STRIP VI SCH ×6 (00:15→20:00)
--- NOTE | 2019-02-13 00:15 | NUR ---
BS INSULIN GIVEN TURNED FOR COMFORT AND SAFETY, ORAL CARE PROVIDED, BS 271 INSULIN GIVEN ACCORDING TO PRESCRIBED PROTOCOL. PT TOLERATED CARE. VS STABLE
[2019-02-13] MEDS: InsuLIN REG 1unit/0.01ml Soln (100units/ml) SC SCH ×6 (00:22→20:00)
--- NOTE | 2019-02-13 01:40 | NUR ---
HYGIENE BED BATH GIVEN, LINENS CHANGED, PT TOLERATED CARE. VS ARE STABLE
--- NOTE | 2019-02-13 03:00 | NUR ---
SUCTION TUBING AND CANISTERS CHANGED PT REMAINS INTUBATED AND IN BED, VS ARE STABLE
[2019-02-13 03:44] LABS: Basophils # (auto) 0 uL; Basophils % (auto) 0.6 % (0.0-2.0); Eosinophils # (auto) 0.1 uL; Eosinophils % (auto) 0.8 % (0.0-7.0); Hematocrit 28.9 % (36.0-46.0); Hemoglobin 9.4 g/dL (12.2-16.2); Lymphocytes # (auto) 0.8 uL; Lymphocytes % (auto) 11.6 % (10.0-50.0); Mean Corpuscular Hemoglobin 27.8 pg (28.0-32.0); Mean Corpuscular Hgb Conc. 32.4 g/dL (32.0-36.0); Mean Corpuscular Volume 85.8 fL (80.0-100.0); Monocytes # (auto) 0.8 uL; Neutrophils # (auto) 5.2 uL; Nucleated Red Blood Cells % 0.1 %; Platelet Count (auto) 132 10^3/uL (140-450); Red Blood Cells 3.37 10^6/uL (4.0-5.20); Red Cell Distribution Width 18.2 % (11.8-14.3); White Blood Cell 6.9 10^3/uL (4.4-10.8)
[2019-02-13 04:01] LABS: Potassium 3.6 mmol/L (3.5-5.1)
[2019-02-13 04:09] LABS: Albumin 1.9 g/dL (3.4-5.0); BUN/Creatinine Ratio 44.2; Bilirubin, Total 0.8 mg/dL (0.2-1.0); Calcium 8.1 mg/dL (8.5-10.1); Magnesium 2.3 mg/dL (1.6-2.6); Phosphorus 2.5 mg/dL (2.5-4.90); Total Protein 5.1 g/dL (6.4-8.2)
[2019-02-13] MEDS: FUROSEMIDE 40 MG/4 ML VIAL IV SCH (05:49)
[2019-02-13] MEDS: MEROPENEM 1GM IVPB 100 ML IV SCH (05:49)
[2019-02-13] MEDS: IPRATROPIUM BROM 0.5 MG/2.5ML INH SOL NEB SCH ×3 (06:03→18:01)
[2019-02-13] MEDS: ALBUTEROL SULF 2.5 MG/0.5ML(0.5%) NEB SOLN NEB SCH ×3 (06:03→18:01)
--- NOTE | 2019-02-13 06:36 | NUR ---
PTS VS ARE STABLE. PT REMAINS INTUBATED, LAYING IN BED APPEARS TO BE SLEEPING. IVS ARE CLEAN AND DRY, PATENT, ASYMPTOMATIC. PT SHOWS NO SS OF DISTRESS AT THIS TIME.
--- NOTE | 2019-02-13 07:02 | NUR ---
REPORT GIVEN TO ARIEL CALI. CARE ENDORSED.
--- NOTE | 2019-02-13 08:00 | NUR ---
NEURO PATIENT OPENS EYES SPONTANEOUSLY, APPEARS TO BE TRACKING. DOES NOT FOLLOW COMMANDS, DOES NOT BLINK EYES UPON COMMAND. NOTED TO HAVE FLAT AFFECT. ALL EXTREMITIES FLACCID. ASPIRATION PRECAUTIONS IN PLACE. ALL SIDE RAILS UP, BED IN LOWEST POSITION. BED ALARM ON.
[2019-02-13] MEDS: FAMOTIDINE 20 MG TAB PO SCH (09:41)
[2019-02-13] MEDS: DOCUSATE ORAL LIQUID 100 MG/10 ML UD GT SCH (09:41)
[2019-02-13] MEDS: ENOXAPARIN SOD 100 MG/1 ML SYRINGE SC SCH (09:42)
[2019-02-13] MEDS ORDERED: POTASSIUM EFFERVESENT TAB 25 MEQ GT SCH (10:00)
--- NOTE | 2019-02-13 10:09 | NUR ---
Family updated on pt status Family of DELONTE MATSON updated on patient's status and condition. All questions and concerns addressed. SisterMarychuy concerned re: patients readmissions since June after her CABG, multiple admissions to rehab centers and patients poor condition. Sister concerned how patient will do once extubated. Informed Marychuy of cpap trial and ensured of close monitoring during process. Explain to Marychuy of patients current neurological status at this point and not completely appropriate to be placed on cpap until residential energy auditor asses patient. Sister verbalized understanding and requesting to be contacted by md. called to verify and stating ok to place Marychuy as contact and to be called by md at this time as she is well educated and understands process. stating Marychuy has been updating all family members as she gets information.
[2019-02-13] MEDS: PROPOFOL 100 ML IV SCH (11:01)
[2019-02-13] MEDS: fentaNYL Drip 2500mCg/250mlNS 250 ML IV SCH (11:01)
--- NOTE | 2019-02-13 11:50 | NUR ---
I called [facility] and spoke with greenhouse assistant Flor-she said she has no ICU beds available at this time and has 15 patients in ER waiting for a bed. Faxed over face sheet per her request.
--- NOTE | 2019-02-13 11:56 | NUR ---
I called [facility] and spoke with house cleaner Leiv-they have no beds available at this time and have several patients in their ER waiting for a bed.
[2019-02-13] MEDS: PANTOPRAZOLE 40 MG/10 ML VIAL INJ IV SCH ×2 (12:15→21:50)
[2019-02-13] MEDS: VANCOMYCIN 1GM/250ML 250 ML IV SCH (12:22)
--- NOTE | 2019-02-13 13:00 | NUR ---
AT BEDSIDE DR. JOSE UPDATED ON PATIENTS STATUS. NEW ORDERS IN PLACE. MD AWARE OF LEFT UPPER ARM HEMATOMA, HARD TO TOUCH AND WARM WITH ECCYMOSIS AT SITE. BP CUFF CHANGED TO RIGHT LOWER EXTREMITY, AWAITING IMAGES. Addendum: 02/13/19 at 1710 by Jennifer Lara RN AWARE OF BLOOD SUGARS RANGING 200'S. PER MD, NO NEW ORDERS AT THIS TIME TUBE FEEDINGS HAVE BEEN ON AND OFF.
[2019-02-13] MEDS ORDERED: FUROSEMIDE 40 MG/4 ML VIAL IV ONE (13:15)
[2019-02-13] MEDS: PIPERACILLIN-TAZO 4.5GM 100 ML IV SCH ×2 (14:22→21:50)
--- NOTE | 2019-02-13 14:37 | NUR ---
Nutrition Follow-up Notes Wt.: 86.7 kg as of yesterday. Pt's intubated, no immediate family member at bedside during rounds this morning. Pt's currently NPO with EN support temporarily held this morning for possible CPAP trial. Noted pt's previous order for Glucerna 1.2 Bayron @ 60 ml/hr providing 1728 kcal, 86 gms pro, 1159 ml free water. Est. Needs: 2496-9304 kcals (17-20 kcals/kgBW) and 67-84 gms/day (0.8-1.0 gm/kg BW)Will continue to monitor pertinent labs and reassess nutrient need prn Labs: Gluc 253 H, Cl 110 H, CO2 34 H, BUN 42 H, Ca 8.1 L, ALP 137 H, Tpro 5.1 L, Alb 1.9 L Skin: Tyrese scale 10, high risk, skin intact per solution architect. GI: Pt's no bowel activity since 01/27/19 per solution architect. PES: Increased nutrient needs r/t acute/chronic medical condition aeb intubated, severe hypoalbuminemia, NPO. Altered nutrition related lab values r/t current/chronic medical condition aeb hyperglycemia, hypercapnia, hyperchloremia, elev. BUN ALP, hypocalcemia and severe hypoalbuminemia Obesity r/t food intake more than body requirement aeb 159% IBW, BMI 32.8 kg/m2 and increased body adiposity Will continue to monitor NPO status, skin status, pertinent labs and weight trend. F/u in 2 to 3 days. Rec.: 1.) Advance gradually to oral diet when medically appropriate. 2.) If still NPO, consider to resume EN support of Glucerna 1.2 Bayron @ 55 ml/hr goal rate as tolerated. 2.) If Albumin continues trending down, consider Prostat 1 pkt BID. 3.) Refer pt to CDE/RD for further nutrition education and weight monitoring upon discharge. 4.) Continue current plan of care.
--- NOTE | 2019-02-13 14:56 | NUR ---
I called [facility] and spoke with Marcelle, they are not a [employer] contracted facility.
--- NOTE | 2019-02-13 15:01 | NUR ---
I called [facility] and spoke with Shasta, she said they have no critical care beds at this time and have several patients holding in their ER waiting for a bed.
--- NOTE | 2019-02-13 15:17 | NUR ---
Cooling Measures applied. Patient currently has temp of 99.6 , cooling measures in place.
[2019-02-13] MEDS: Glucerna 1.2 Cal 1Liter BOTTLE GT SCH (15:30)
--- NOTE | 2019-02-13 15:30 | NUR ---
TUBE FEEDINGS TUBE FEEDINGS RESTARTED AT THIS TIME AFTER PLACEMENT VERIFICATION VIA AUSCULTATION. RATE SET AT 30ML/HR. Addendum: 02/13/19 at 1714 by Jennifer Lara RN ASPIRATION PRECAUTIONS IN PLACE.
--- NOTE | 2019-02-13 15:54 | NUR ---
neurologist at bedside at bedside. Md updated on patients status. Md suggesting ok for cpap and also due to location of stroke patient will be needing a g tube for nutrition. Hospitalist paged to verify if she would like gi consult at this time before plans for extubation and to verify if she would like to begin administration of Coumadin. Awaiting callback.
--- NOTE | 2019-02-13 16:00 | NUR ---
FUNERAL WORKERS AT BEDSIDE DR. MARQUEZ UPDATED ON PATIENTS STATUS. NEW ORDERS IN PLACE. R.T AWARE.
--- NOTE | 2019-02-13 17:04 | NUR ---
CALLED BACK DR. JOSE UPDATED ON NEUROLOGIST RECOMMENDATIONS. MD VERBALIZED UNDERSTANDING. NEW ORDERS.
--- NOTE | 2019-02-13 17:08 | NUR ---
Family updated on pt status Family of DELONTE MATSON updated on patient's status and condition. All questions and concerns addressed. Dc verbalized understanding. Addendum: 02/13/19 at 1843 by Jennifer Lara RN Updated at bedside re: consult for Peg tube placement per neurologist recommendations. verbalized he would agree to peg placement stating, " We'll we have to do that, we need to feed her, we're not going to leave her with out eating." Informed consult is pending at this time.
--- NOTE | 2019-02-13 17:14 | NUR ---
LEFT UPPER ARM VENOUS DOPPLER RESULTS RESULTS AMMENDED TO RESULT DVT AND POSSIBLE ABSCESS PER PECAN GROWER.
--- NOTE | 2019-02-13 17:18 | NUR ---
PER IMAGING RESULTS FOR POSSIBLE ABSCESS/ CELLULITIS TO LEFT UPPER ARM, COLD COMPRESS APPLIED.
--- NOTE | 2019-02-13 18:28 | NUR ---
PAGED TO NOTIFY OF BLOOD GAS RESULT. TO CALLBACK. Addendum: 02/13/19 at 1843 by Jennifer Lara RN called back and spoke to R.t. No further vent changes at this time.
[2019-02-13] MEDS ORDERED: LACTULOSE 20Gm/30ML SOLN PO PRN (18:45)
--- NOTE | 2019-02-13 19:12 | NUR ---
OPEN RECEIVED REPORT AND ASSUMED CARE OF FEMALE PT ORALLY INTUBATED OFF SEDATION. PT IS CONNECTED TO ICU MONITORS, VS ARE STABLE, RR ARE EQUAL AND UNLABORED. PT SPONTANEOUSLY OPENS EYES BUT DOES NOT TRACK. PT NOT FOLLOWING COMMANDS AT THIS TIME. PT HAS PACE MAKER TO UPPER LT CHEST.PT HAS OGT RUNNING tube feeding AT 30ML/HR.OGT PLACEMENT IS VERIFIED. PT HAS R UPPER ARM MIDLINE. LINE FLUSHED WITH NS, NO RESISTANCE NOTED, LINES PATENT AND ASYMPTOMATIC. PT HAS BRUISES TO BILATERAL UPPER EXTREMITIES.BECKI BOOTS ARE APPLIED TO BILATERAL FEET FOR SAFETY.. PTS HEELS ARE PINK BUT BLANCHABLE.PT HAS SCDS ON LOWER Lt EXTREMITIES. PT HAS OPTI FOAM TO SACRUM A PREVENTIVE MEASURE. PILLOWS ARE IN PLACE UNDER JACQUES PROMINENCES FOR COMFORT AND SAFETY.BED IS IN LOWEST POSITION, WHEELS ARE LOCKED,SIDE RAILS UP X2, HOB 45* PT IS IN FULL VIEW OF RN STATION. WILL CONTINUE TO CARE FOR AND MONITOR.
--- NOTE | 2019-02-13 20:00 | NUR ---
BS INSULIN GIVEN TURNED FOR COMFORT AND SAFETY, ORAL CARE PROVIDED, BS elevated INSULIN GIVEN ACCORDING TO PRESCRIBED PROTOCOL. PT TOLERATED CARE. VS STABLE
[2019-02-13] MEDS: INSULIN LANTUS (GLARGINE) 1 /0.01ml (100units/ml) SC SCH (21:50)
[2019-02-13] MEDS: ENOXAPARIN SOD 80 MG/0.8ML SYRINGE SC SCH (21:50)
--- NOTE | 2019-02-13 23:00 | NUR ---
tolerates care pt remains intubated, off sedation. no ss of distress noted, vs stable. will continue to monitor
[2019-02-14] VITALS (42 sets, daily range): BP systolic 100–160; BP diastolic 35–80
--- NOTE | 2019-02-14 00:10 | NUR ---
BS INSULIN GIVEN TURNED FOR COMFORT AND SAFETY, ORAL CARE PROVIDED, BS elevated INSULIN GIVEN ACCORDING TO PRESCRIBED PROTOCOL. PT TOLERATED CARE. VS STABLE
--- NOTE | 2019-02-14 01:00 | NUR ---
IV removal r hand IV DC'd with clean technique, catheter fully intact. Pressure dressing applied to site. Patient tolerated procedure.
--- NOTE | 2019-02-14 03:15 | NUR ---
hygiene partial bed bath given, linens changed
[2019-02-14] MEDS: InsuLIN REG 1unit/0.01ml Soln (100units/ml) SC SCH ×6 (04:00→20:13)
[2019-02-14] MEDS: ACCU-CHEK COMFORT CURVE STRIP VI SCH ×6 (04:00→20:07)
[2019-02-14 04:07] LABS: Basophils # (auto) 0 uL; Basophils % (auto) 0.4 % (0.0-2.0); Eosinophils # (auto) 0.1 uL; Eosinophils % (auto) 1.5 % (0.0-7.0); Hematocrit 32.5 % (36.0-46.0); Hemoglobin 10.3 g/dL (12.2-16.2); Lymphocytes % (auto) 14.4 % (10.0-50.0); Mean Corpuscular Hemoglobin 27.6 pg (28.0-32.0); Mean Corpuscular Hgb Conc. 31.6 g/dL (32.0-36.0); Mean Corpuscular Volume 87.2 fL (80.0-100.0); Monocytes # (auto) 1.1 uL; Monocytes % (auto) 16.7 % (0.0-12.0); Neutrophils # (auto) 4.6 uL; Nucleated Red Blood Cells % 0.1 %; Platelet Count (auto) 182 10^3/uL (140-450); Red Blood Cells 3.73 10^6/uL (4.0-5.20); Red Cell Distribution Width 17.9 % (11.8-14.3); White Blood Cell 6.8 10^3/uL (4.4-10.8)
--- NOTE | 2019-02-14 04:15 | NUR ---
BS INSULIN GIVEN TURNED FOR COMFORT AND SAFETY, ORAL CARE PROVIDED, BS 221 INSULIN GIVEN ACCORDING TO PRESCRIBED PROTOCOL. PT TOLERATED CARE. VS STABLE
[2019-02-14 04:31] LABS: Potassium 3.8 mmol/L (3.5-5.1)
[2019-02-14 04:39] LABS: BUN/Creatinine Ratio 38.5; Bilirubin, Total 0.9 mg/dL (0.2-1.0); Calcium 8.3 mg/dL (8.5-10.1); Total Protein 5.8 g/dL (6.4-8.2)
--- NOTE | 2019-02-14 04:50 | NUR ---
SUCTION CANISTERS AND TUBING CHANGED
[2019-02-14] MEDS: PIPERACILLIN-TAZO 4.5GM 100 ML IV SCH ×3 (05:38→21:39)
[2019-02-14] MEDS: ALBUTEROL SULF 2.5 MG/0.5ML(0.5%) NEB SOLN NEB SCH ×3 (06:50→18:35)
[2019-02-14] MEDS: IPRATROPIUM BROM 0.5 MG/2.5ML INH SOL NEB SCH ×3 (06:51→18:35)
--- NOTE | 2019-02-14 06:51 | NUR ---
no ss of distress noted. pt is in bed still ventilated, appears to be sleep, vs are stable, iv is patent, safety measures are in place.
[2019-02-14] MEDS: FUROSEMIDE 40 MG/4 ML VIAL IV SCH (10:21)
[2019-02-14] MEDS: ENOXAPARIN SOD 80 MG/0.8ML SYRINGE SC SCH (10:21)
[2019-02-14] MEDS: PANTOPRAZOLE 40 MG/10 ML VIAL INJ IV SCH ×2 (10:21→21:40)
--- NOTE | 2019-02-14 12:51 | NUR ---
Resumed care at 0715, orders reviewed and ongoing assessments being done. Remains intubated and being treated for multiple problems. Diagnosed with ischemic stroke, has been off all sedation since02-12-19. Upon arrival of shift did open eyes when spoken to but unable to follow any other direction. At this time she does open eyes spontaneously but no eye to eye contact. All extremities very weak with left arm flaccid. Continuing with Q2 neuro checks. Dr. Jhaveri, enginehouse brakeman rounded at 0840. Reviewed data and discussed plan of care. Per Dr. Jhaveri, he and Dr. Falcon, neurologist agree that the patient may need a PEG for nutrition. Fang CHAU consulted at noon for Dr. Cole, public relations professional. Discussed possible PEG placement, awaiting Dr. Cole to round. Per Dr. Jhaveri will hold off CPAP trial today until confirmation of PEG placement is done. Spoke with patient's sister Marychuy sun phone at 0921 am, all question answered.
--- NOTE | 2019-02-14 14:15 | NUR ---
I called [facility] and spoke with roundhouse worker Flor, she said she has no ICU beds available and has several patients in ER waiting for a bed.
--- NOTE | 2019-02-14 14:20 | NUR ---
I called [facility] [phone] and spoke with Jaimie, she said they have no ICU beds available and have patients in their ER waiting for a bed.
--- NOTE | 2019-02-14 14:23 | NUR ---
I called [facility] [phone] and left message for washhouse hand asking about bed availability.
[2019-02-14] MEDS: Glucerna 1.2 Cal 1Liter BOTTLE GT SCH (16:41)
--- NOTE | 2019-02-14 17:14 | NUR ---
Dr. Mora, hospitalist rounded at 1538. Discussed condition and plan of care. She agreed with holding Lovenox for PEG placement. Dr. Cole was in at 1600 and made him aware that Dr. Mora agreed to hold Lovenox for PEG placement. He agreed and will follow up tomorrow. Dr. Mora contacted Dc Eli, via phone to discuss plan of care. He could not talk at the time and Dr. Mora stated that she would try to contact him again later this evening. Dc has arrived and is visiting a bedside. Updated him on plan of care.
[2019-02-14] MEDS: PROPOFOL 100 ML IV SCH (17:35)
[2019-02-14] MEDS: fentaNYL Drip 2500mCg/250mlNS 250 ML IV SCH (17:35)
--- NOTE | 2019-02-14 18:27 | NUR ---
Assessment Pt is a 63 yr old intubated female. Pt lives with son, who is her emergency contact at [phone]. Prior to admit, pt was ambulatory and independent with ADL's and uses 02, commode, walker, and shower chair in home. Pt admitted when she " wouldn't wake up." Pt's primary Dr Romero. Pt's employed, no AD on file. Pt's daughter stated that she sees no foreseeable extra assistance in the home. stated that they are working on transfering pt in network. Further needs will be assessed closer to d/c. Addendum: 02/14/19 at 1835 by MARCELL GARCIA Amended: Links added.
--- NOTE | 2019-02-14 18:33 | NUR ---
Continues to open eyes when spoken to and spontaneously as well. Now trying to squeeze right hand when requested. Complete bath and linen change done. A dose of lactulose was given earlier today and was effective . Bilateral upper arms with multiple bruises from BP cuff and puncture sites. Changed optifoam to coccyx/sacral area. Skin pink and blanchable.
--- NOTE | 2019-02-14 20:00 | NUR ---
OPEN NOTES ASSUMED CARE OF PATIENT. PATIENT OPEN EYES TO CALL. FOLLOWS SIMPLE COMMANDS BUT STILL WEAK. MOVEMENT ONLY SEEN AT RIGHT ARM. INTUBATED, BREATHING COMFORTABLY.VS STABLE. ECG ON PACED RHYTHM. OGT IN PLACED WITH ONGOING TUBE FEEDING TOLERATING WELL. SWANSON CATHETER IN PLACED. ECCHYMOSIS NOTED ON BOTH UPPER LIMBS MORE ON THE LEFT SIDE. BP TAKEN FROM RIGHT LEG. MIDLINE AT RIGHT UPPER ARM - DRESSING DRY AND INTACT.SALINE LOCKED. ORAL CARE DONE,REPOSITIONED. BOTH LEGS ON BECKI BOOTS. FULL ASSESSMENT DONE-REFER INTERVENTIONS
--- NOTE | 2019-02-14 20:30 | NUR ---
ROUNDS SEEN BY DR. MARQUEZ.UPDATED ON POC VERBAL ORDER: TO DO CPAP TRIAL OLVIN BUT NOT FOR EXTUBATION YET UNTIL DEFINITIVE PLAN FOR PEG IS PLACED
[2019-02-14] MEDS: INSULIN LANTUS (GLARGINE) 1 /0.01ml (100units/ml) SC SCH (22:16)
[2019-02-15] VITALS (36 sets, daily range): BP systolic 100–158; BP diastolic 31–75
[2019-02-15] MEDS: ACCU-CHEK COMFORT CURVE STRIP VI SCH ×6 (00:08→19:38)
[2019-02-15] MEDS: InsuLIN REG 1unit/0.01ml Soln (100units/ml) SC SCH ×6 (00:11→20:11)
--- NOTE | 2019-02-15 04:00 | NUR ---
Patient bathe/linen change Patient given a sponge bath. Skin integrity assessed for any changes. Linens changed. Patient repositioned for comfort.
[2019-02-15 04:32] LABS: Hematocrit 32.4 % (36.0-46.0); Hemoglobin 9.6 g/dL (12.2-16.2); Mean Corpuscular Hemoglobin 27.8 pg (28.0-32.0); Mean Corpuscular Hgb Conc. 29.6 g/dL (32.0-36.0); Mean Corpuscular Volume 93.8 fL (80.0-100.0); Platelet Count (auto) 219 10^3/uL (140-450); Red Blood Cells 3.46 10^6/uL (4.0-5.20); Red Cell Distribution Width 19.2 % (11.8-14.3); White Blood Cell 8.3 10^3/uL (4.4-10.8)
[2019-02-15 04:34] LABS: Potassium 3.2 mmol/L (3.5-5.1)
[2019-02-15 04:39] LABS: BUN/Creatinine Ratio 32.5; Calcium 8.7 mg/dL (8.5-10.1)
[2019-02-15 04:48] LABS: Basophils % (manual) 0 (0.0-2.0); Blast Cells 0; Eosinophils % (manual) 0 (0-7); Metamyelocytes % 0; Myelocytes % 0; Reactive Lymphocytes 0
--- NOTE | 2019-02-15 05:10 | NUR ---
PAGED HOSPITALIST FOR LAB RESULTS
--- NOTE | 2019-02-15 05:29 | NUR ---
HOSPITALIST CALLED BACK TALKED TO MADIHA STEPHEN AND INFORMED OF SODIUM 150 MMOL, POTASSIUM 3.2 MMOL TELEPHONE ORDER RECEIVED AND VERIFIED 1. FREE WATER 200ML Q6H 2. POTASSIUM 25MEQ PER OGT
[2019-02-15] MEDS ORDERED: POTASSIUM EFFERVESENT TAB 25 MEQ GT ONE ×2 (05:30→13:00)
[2019-02-15 05:56] LABS: Band Neutrophils % (manual) 2
[2019-02-15 05:58] LABS: Lymphocytes % (manual) 16 (10.0-50.0); Monocytes % (manual) 11 (0-12)
[2019-02-15] MEDS: FREE WATER GT SCH ×3 (06:28→17:59)
[2019-02-15] MEDS: PIPERACILLIN-TAZO 4.5GM 100 ML IV SCH ×3 (06:28→22:21)
[2019-02-15] MEDS: ALBUTEROL SULF 2.5 MG/0.5ML(0.5%) NEB SOLN NEB SCH ×3 (06:54→18:23)
[2019-02-15] MEDS: IPRATROPIUM BROM 0.5 MG/2.5ML INH SOL NEB SCH ×3 (06:55→18:23)
[2019-02-15 06:56] LABS: Promyelocytes % 0
--- NOTE | 2019-02-15 07:10 | NUR ---
REPORT REPORT GIVEN TO ARIEL HDEZ
--- NOTE | 2019-02-15 09:36 | NUR ---
Resumed care at 0710, orders reviewed and ongoing assessments being done. Remains intubated and being treated for multiple problems. Diagnosed with ischemic stroke, has been off all sedation since02-12-19. Upon arrival of shift eyes spontaneously opened. reoriented to staff, place and situation. Can blink eyes on command but not able to grinder dresser with hands. All extremities very weak with left arm flaccid. Continuing with Q2 neuro checks. Per Dr. Jhaveri will attempt CPAP trial today but will not extubate, pending PEG placement possibly this week. Yolanda GARCIA initiated CPAP trial at 0825. Instructed the patient on procedure and purpose of trial. Noted approximately one hour into trial with increase RR>31 and increase in BP 158/68. ABG was drawn by Yolanda and returned ventilator to previous settings. Will make make Dr. Jhaveri aware of trial.
--- NOTE | 2019-02-15 09:53 | NUR ---
I called [facility] and spoke with power house control room operator Marta, she said they have no beds available and have over 40 patients in their ER waiting for a bed.
[2019-02-15] MEDS: FUROSEMIDE 40 MG/4 ML VIAL IV SCH (10:29)
[2019-02-15] MEDS: PANTOPRAZOLE 40 MG/10 ML VIAL INJ IV SCH ×2 (10:29→22:18)
--- NOTE | 2019-02-15 10:52 | NUR ---
Nutrition Follow-up Notes Wt.: 84.4 kg as of yesterday. Pt's intubated, non-sedated, currently NPO with EN support temporarily held this morning for possible CPAP trial. Noted pt's previous order for Glucerna 1.2 Bayron @ 60 ml/hr providing 1728 kcal, 86 gms pro, 1159 ml free water. Est. Needs: 3556-1084 kcals (17-20 kcals/kgBW) and 67-84 gms/day (0.8-1.0 gm/kg BW)Will continue to monitor pertinent labs and reassess nutrient need prn Labs: Gluc 189 H, Na 150 H, K 3.2 L, BUN 40 H, Cr 1.23 H; Tpro 5.8 L, Alb 2.0 L Skin: Tyrese scale 13, mod risk, skin intact per coal mine inspector. GI: Pt had 1 BM this morning per coal mine inspector. PES: Increased nutrient needs r/t acute/chronic medical condition aeb intubated, severe hypoalbuminemia, NPO. Altered nutrition related lab values r/t current/chronic medical condition aeb hyperglycemia, hypercapnia, hyperchloremia, elev. BUN ALP, hypocalcemia and severe hypoalbuminemia Obesity r/t food intake more than body requirement aeb 159% IBW, BMI 32.8 kg/m2 and increased body adiposity Will continue to monitor NPO status, skin status, pertinent labs and weight trend. F/u in 2 to 3 days. Rec.: 1.) Advance gradually to oral diet when medically appropriate. 2.) If still NPO, consider to resume EN support of Glucerna 1.2 Bayron @ 55 ml/hr goal rate as tolerated. 3.) If Albumin continues trending down, consider Prostat 1 pkt BID. 4.) Refer pt to CDE/RD for further nutrition education and weight monitoring upon discharge. 5.) Continue current plan of care.
[2019-02-15] MEDS ORDERED: ENOXAPARIN SOD 80 MG/0.8ML SYRINGE SC ONE (11:30)
[2019-02-15] MEDS: MORPHINE SULF INJ 2 MG/ML SYRINGE 1ML IV PRN (11:41)
[2019-02-15] MEDS ORDERED: D5W 5% 1,000 ML IV ONE (13:00)
[2019-02-15] MEDS ORDERED: POTASSIUM EFFERVESENT TAB 25 MEQ PO ONE (13:00)
--- NOTE | 2019-02-15 15:23 | NUR ---
Dr. Jhaveri was rounded at 1050. Made him aware of CPAP trial and ABG results. Will maintain on previous ventilator settings for now. Dr. Mora spoke with the patient's Dc Eli via phone earlier today and discussed the need for PEG placement. agreed with plan of care. Dr. Mora contacted Dr. Cole and made him aware. Per Dr. Mora stated that Dr. Cole will schedule the procedure for this coming Wednesday02-17-19. Dr. Cole has placed an order for procedure. Will obtain consent when arrives to visit. Resting in bed. Medicated with Morphine 1mg IVP at 1141. Noted increase in facial grimacing when rendering care. Continues to open eyes spontaneously and blink eyes on command.
--- NOTE | 2019-02-15 15:36 | NUR ---
Dr. Mora rounded at 1250, orders reviewed and initiated.
[2019-02-15] MEDS: fentaNYL Drip 2500mCg/250mlNS 250 ML IV SCH (17:35)
[2019-02-15] MEDS: PROPOFOL 100 ML IV SCH (17:35)
[2019-02-15] MEDS: Glucerna 1.2 Cal 1Liter BOTTLE GT SCH (17:59)
--- NOTE | 2019-02-15 18:36 | NUR ---
Contacted Dc Eli at 1730 and obtained consent via phone for PEG placement, scheduled for this coming Wednesday. All questions answered.
[2019-02-15 19:19] LABS: BUN/Creatinine Ratio 32.3; Calcium 8.1 mg/dL (8.5-10.1)
--- NOTE | 2019-02-15 19:30 | NUR ---
OPEN NOTES ASSUMED CARE OF PATIENT. PATIENT OPEN EYES TO CALL. FOLLOWS SIMPLE COMMANDS BUT STILL WEAK. INTUBATED, BREATHING COMFORTABLY.VS STABLE. ECG ON PACED RHYTHM. OGT IN PLACED WITH ONGOING TUBE FEEDING TOLERATING WELL. SWANSON CATHETER IN PLACED. ECCHYMOSIS NOTED ON BOTH UPPER LIMBS MORE ON THE LEFT SIDE WITH SOME HEMATOMA-APPLIED PRESSURE. SITE SOFTER NOW BP TAKEN FROM RIGHT LEG. MIDLINE AT RIGHT UPPER ARM - DRESSING DRY AND INTACT.SALINE LOCKED. ORAL CARE DONE,REPOSITIONED. BOTH LEGS ON BECKI BOOTS. FULL ASSESSMENT DONE-REFER INTERVENTIONS
[2019-02-15] MEDS ORDERED: INSULIN LANTUS (GLARGINE) 1 /0.01ml (100units/ml) SC SCH ×2 (22:00)
[2019-02-15] MEDS: INSULIN LANTUS (GLARGINE) 1 /0.01ml (100units/ml) SC SCH (22:21)
[2019-02-15] MEDS: ENOXAPARIN SOD 80 MG/0.8ML SYRINGE SC SCH (22:22)
[2019-02-16] VITALS (34 sets, daily range): BP systolic 102–146; BP diastolic 33–60
--- NOTE | 2019-02-16 00:30 | NUR ---
ROUNDS Patient's neuro status remained same. VS stable. Tube feeding tolerated well. Oral care done. Repositioned.
[2019-02-16] MEDS: ACCU-CHEK COMFORT CURVE STRIP VI SCH ×7 (00:33→23:50)
[2019-02-16] MEDS: InsuLIN REG 1unit/0.01ml Soln (100units/ml) SC SCH ×6 (00:37→20:29)
[2019-02-16] MEDS: FREE WATER GT SCH ×4 (00:37→18:25)
--- NOTE | 2019-02-16 02:41 | NUR ---
Respiratory note: PT PLACED ON HEATED WIRE CIRCUIT ON VENT V21. VENT SST'D AND PASSED. VENT PLUGGED INTO RED OUTLET, ALARMS SET AND AUDIBLE. PT PLACED BACK ON PREVIOUS VENT SETTINGS.
--- NOTE | 2019-02-16 04:00 | NUR ---
Patient bathe/linen change Patient cleaned with CHG wipes. Skin integrity assessed for any changes. Linens changed. Patient repositioned for comfort.
[2019-02-16 04:03] LABS: INR 1.04 (0.9-1.15); Partial Thromboplastin Time 23.5 sec (23.64-32.05)
[2019-02-16 04:08] LABS: Calcium 8.1 mg/dL (8.5-10.1); Potassium 4.3 mmol/L (3.5-5.1)
[2019-02-16 04:13] LABS: BUN/Creatinine Ratio 30.8
[2019-02-16 04:45] LABS: Hemoglobin 9.3 g/dL (12.2-16.2); Mean Corpuscular Hemoglobin 26.7 pg (28.0-32.0)
[2019-02-16 04:47] LABS: Hematocrit 30.1 % (36.0-46.0); Mean Corpuscular Hgb Conc. 30.8 g/dL (32.0-36.0); Mean Corpuscular Volume 86.9 fL (80.0-100.0); Platelet Count (auto) 257 10^3/uL (140-450); Red Blood Cells 3.46 10^6/uL (4.0-5.20); Red Cell Distribution Width 17.9 % (11.8-14.3); White Blood Cell 12.9 10^3/uL (4.4-10.8)
[2019-02-16 04:50] LABS: Basophils % (manual) 0 (0.0-2.0); Blast Cells 0; Eosinophils % (manual) 0 (0-7); Metamyelocytes % 0; Myelocytes % 0; Promyelocytes % 0; Reactive Lymphocytes 0
[2019-02-16 06:12] LABS: Band Neutrophils % (manual) 7; Lymphocytes % (manual) 10 (10.0-50.0); Monocytes % (manual) 7 (0-12)
[2019-02-16] MEDS: PIPERACILLIN-TAZO 4.5GM 100 ML IV SCH (06:14)
[2019-02-16] MEDS: IPRATROPIUM BROM 0.5 MG/2.5ML INH SOL NEB SCH ×3 (06:52→18:13)
[2019-02-16] MEDS: ALBUTEROL SULF 2.5 MG/0.5ML(0.5%) NEB SOLN NEB SCH ×3 (06:52→18:13)
[2019-02-16] MEDS: INSULIN LANTUS (GLARGINE) 1 /0.01ml (100units/ml) SC SCH ×2 (07:22→22:32)
[2019-02-16] MEDS: ENOXAPARIN SOD 80 MG/0.8ML SYRINGE SC SCH (07:40)
--- NOTE | 2019-02-16 08:00 | NUR ---
OPEN RECEIVED REPORT FROM NIGHT RN. ASSUMED CARE OF ICU PATIENT, FULL CODE STATUS. PATIENT OFF SEDATION AT THIS TIME, BUT IS ON A VENT. CURRENT FIO2 AT 30%. OGT WITH GLUCERNA AT 60 ML/HR, NO RESIDUALS AT THIS TIME. SWANSON TO GRAVITY. MARIA R LE SCD'S IN PLACE WITH BECKI BOOTS. WILL CONTINUE TO TURN PATIENT Q2HRS AND PRN. OFF LOADING PRESSURE AREAS WITH PILLOWS. SEE OPERATING MANAGER AND IV FLOW SHEET FOR FURTHER PATIENT INFORMATION. CONTINUE CARE.
--- NOTE | 2019-02-16 09:01 | NUR ---
DR. HIGH AT BEDSIDE: UPDATE MD UPDATED ON PT'S STATUS AND POC FOR TODAY. MD GIVEN ORDERS TO HOLD LOVENOX UNTIL AFTER PLACEMENT OF PEG TUBE. PEG TUBE PLACEMENT SCHEDULE FOR TOMORROW WITH DR. HIGH. NPO AFTER MIDNIGHT. CONTINUE CARE.
--- NOTE | 2019-02-16 09:05 | NUR ---
I called [facility] and left message for salesperson household appliances asking about bed availability.
--- NOTE | 2019-02-16 09:32 | NUR ---
DR. JOSE AT BEDSIDE: ORDERS MD UPDATED ON PT'S CURRENT STATUS, LABS AND POC FOR TODAY. ORDERS GIVEN AND TO BE CARRIED OUT. WILL CONTINUE TO MONITOR.
[2019-02-16] MEDS ORDERED: FUROSEMIDE 20 MG/2 ML VIAL ONE (09:37)
[2019-02-16] MEDS: FUROSEMIDE 20 MG/2 ML VIAL IV SCH (09:46)
[2019-02-16] MEDS: PANTOPRAZOLE 40 MG/10 ML VIAL INJ IV SCH ×2 (09:47→22:31)
--- NOTE | 2019-02-16 10:13 | NUR ---
I spoke with warehouse traffic supervisor Marta at [facility], they have no ICU beds available. I called [facility] and spoke with warehouse traffic supervisor Shasta, she said they have no ICU beds available at this time. I received a call from [facility] letting me know they can not accept this patient.
[2019-02-16] MEDS: Glucerna 1.2 Cal 1Liter BOTTLE GT SCH (12:39)
--- NOTE | 2019-02-16 12:40 | NUR ---
TUBE FEEDINGS NEW BOTTLE OF GLUCERNA 1.2 HUNG AT THIS TIME. CONTINUED RATE AT 60 ML/HR, NO RESIDUALS AT THIS TIME. WILL CONTINUE WITH RATE ORDERED. CONTINUE CARE.
[2019-02-16] MEDS: FLUCONAZOLE 200MG/100ML 100 ML IV SCH (13:06)
--- NOTE | 2019-02-16 13:14 | NUR ---
I called [facility] and left message asking about bed availability.
--- NOTE | 2019-02-16 13:18 | NUR ---
I called [facility] and spoke with perennial house manager Shweta, she said they have no ICU beds available and have several patients in their ER waiting for beds.
--- NOTE | 2019-02-16 13:19 | NUR ---
I called [facility] [phone] and left message with material handling warehouse supervisor asking about bed availability.
[2019-02-16] MEDS: MEROPENEM 1GM IVPB 100 ML IV SCH ×2 (14:12→22:31)
[2019-02-16] MEDS: fentaNYL Drip 2500mCg/250mlNS 250 ML IV SCH (15:21)
[2019-02-16] MEDS: PROPOFOL 100 ML IV SCH (16:36)
--- NOTE | 2019-02-16 19:15 | NUR ---
RECEIVED REPORT FROM DEJA RN, PT. IN BED ORALLY INTUBATED WITH ETT # 7.5, 24 CM @ THE LIP, CONNECTED TO A MECHANICAL VENT @ ORDERED SETTINGS, OGT INTACT , ON CONTINUOUS GLUCERNA FEEDINGS @ 60 ML/HR, LT. UPPER ARM HAS HEMATOMA WITH ECCHYMOSIS, ECCHYMOSIS NOTED ALSO ON LT FA AND LT HAND. ECCHYMOSIS ON RT UPPER ARM, RT FA AND RT HAND WITH SWELLING NOTED, BOTH ARMS ELEVATED TO 1 PILLOW. SWANSON INTACT AND DRAINING WELL. SCD TO BOTH LE IN PLACED.
--- NOTE | 2019-02-16 22:15 | NUR ---
ORAL CARE DONE AND REPOSITIONED TO HER LT SIDE.
[2019-02-17] VITALS (70 sets, daily range): BP systolic 95–185; BP diastolic 13–97
--- NOTE | 2019-02-17 | NUR ---
FEEDINGS STOPPED, KEPT PT. NPO FOR PEG PLACEMENT TODAY.
[2019-02-17] MEDS: InsuLIN REG 1unit/0.01ml Soln (100units/ml) SC SCH ×6 (00:15→20:00)
[2019-02-17] MEDS: FREE WATER GT SCH ×4 (00:30→17:28)
--- NOTE | 2019-02-17 04:00 | NUR ---
AM CARE DONE, ORAL CARE DONE, PERINEAL CARE DONE, SUCTIONED ORALLY AND VIA ETT, STILL HAVE YELLOWISH SECRETIONS, THICK TO LOOSE IN CONSISTENCY, MODERATE IN AMOUNT. OPTIFOAM DRESSING TO SACRAL AREA CHANGED., STILL NPO, RT AC/ UPPER ARM MIDLINE PATENT AND INTACT.
--- NOTE | 2019-02-17 04:00 | NUR ---
HAD MODERATE AMOUNT OF BM, YELLOW COLORED, MODERATE IN AMOUNT.
[2019-02-17] MEDS: ACCU-CHEK COMFORT CURVE STRIP VI SCH ×5 (04:04→20:00)
[2019-02-17] MEDS: MEROPENEM 1GM IVPB 100 ML IV SCH ×3 (06:20→22:24)
[2019-02-17] MEDS: IPRATROPIUM BROM 0.5 MG/2.5ML INH SOL NEB SCH ×3 (06:45→18:20)
[2019-02-17] MEDS: ALBUTEROL SULF 2.5 MG/0.5ML(0.5%) NEB SOLN NEB SCH ×3 (06:45→18:20)
--- NOTE | 2019-02-17 07:15 | NUR ---
REPORT GIVEN TO DAY RN.
--- NOTE | 2019-02-17 08:35 | NUR ---
RETURN OR CALL SPOKE WITH ARIEL KABA - PROVIDED REQUESTED INFORMATION, PATIENT MECHANICALLY VENTILATED, NOT SEDATED. CALM RELAXED. NO ETA TIME AVAILABLE.
--- NOTE | 2019-02-17 08:45 | NUR ---
RETURN FAMILY CALL Family of WUJIMCATHY PALMERORAH updated on patient's status and condition after password verification. All questions and concerns addressed. Patient's spouse Dc verbalized understanding.
[2019-02-17] MEDS ORDERED: SODIUM CHLORIDE LOCK 0 ML ONE (09:01)
[2019-02-17] MEDS ORDERED: MIDAZOLAM HCL 5 MG/ML-1ML VIAL ONE (09:01)
[2019-02-17] MEDS ORDERED: fentaNYL CITRATE 100 MCG/2 ML VL ONE (09:01)
[2019-02-17] MEDS ORDERED: diphenhdrAMINE HCL 50 MG/1 ML VL ONE (09:02)
--- NOTE | 2019-02-17 09:15 | NUR ---
HOSPITALIST AT BEDSIDE DR JOSE UPDATED ON PATIENT'S STATUS, DR JOSE STATED SHE REVIEWED PATIENT'S CHART. ORDERS TO RESUME LOVENOX 24 HOURS AFTER PEG TUBE PLACEMENT AND NOT ANY TIME SOONER. COMMUNICATION ORDER WILL BE ENTERED AND PASSED ON TO ONCOMING OUTBOUND TELEMARKETER RN.
[2019-02-17] MEDS: INSULIN LANTUS (GLARGINE) 1 /0.01ml (100units/ml) SC SCH ×2 (09:29→22:24)
--- NOTE | 2019-02-17 09:36 | NUR ---
CALL RECEIVED FROM FAMILY Family of DELONTE MATSON updated on patient's status and condition after password verification. All questions and concerns addressed. Patient's sister Marychuy verbalized understanding.
[2019-02-17 10:14] LABS: Hematocrit 30.6 % (36.0-46.0); Hemoglobin 9.6 g/dL (12.2-16.2); Mean Corpuscular Hemoglobin 27.1 pg (28.0-32.0); Mean Corpuscular Hgb Conc. 31.4 g/dL (32.0-36.0); Mean Corpuscular Volume 86.2 fL (80.0-100.0); Platelet Count (auto) 256 10^3/uL (140-450); Red Blood Cells 3.55 10^6/uL (4.0-5.20); White Blood Cell 13.8 10^3/uL (4.4-10.8)
[2019-02-17 10:25] LABS: Band Neutrophils % (manual) 0; Basophils % (manual) 0 (0.0-2.0); Blast Cells 0; Eosinophils % (manual) 0 (0-7); Metamyelocytes % 0; Myelocytes % 0; Promyelocytes % 0; Reactive Lymphocytes 0
[2019-02-17 10:31] LABS: Calcium 8.3 mg/dL (8.5-10.1); Potassium 3.1 mmol/L (3.5-5.1)
[2019-02-17 10:43] LABS: Lymphocytes % (manual) 7 (10.0-50.0); Monocytes % (manual) 2 (0-12)
[2019-02-17] MEDS: FUROSEMIDE 20 MG/2 ML VIAL IV SCH (10:51)
[2019-02-17] MEDS: FLUCONAZOLE 200MG/100ML 100 ML IV SCH (10:51)
[2019-02-17] MEDS: PANTOPRAZOLE 40 MG/10 ML VIAL INJ IV SCH ×2 (10:51→22:24)
--- NOTE | 2019-02-17 11:12 | NUR ---
I called [facility] [phone] and spoke with housekeeping aide Breanna, she said she has no ICU beds available at this time. I called [facility] [phone] and left message for housekeeping aide asking about bed availability. I also called [facility] and left message asking about bed availability.
--- NOTE | 2019-02-17 11:15 | NUR ---
WOUND CARE NOTE: PATIENT BEING MONITORED FOR SKIN INTEGRITY D/T INTUBATION STATUS. PATIENT REMAINS INTUBATED, NON RESPONSIVE. PATIENT HAS CURRENT PETER SCORE OF 10. PATIENT CONTINUES TO BE WOUND FREE AT THIS TIME, EXCEPT FOR MULTIPLE ECCHYMOSIS TO BILATERAL ARMS. NEW WOUND PHOTOS TAKEN AT THIS TIME FOR REFERENCE. SKIN/WOUND CARE PLAN UPDATED. RECOMMEND: CONTINUATION WITH ALL WOUND CARE ORDERS PREVIOUSLY PRESCRIBED BY MD. WOUND CARE TEAM WILL CONTINUED TO MONITOR. Addendum: 02/17/19 at 1805 by Niurka Varghese RN Amended: Links added.
--- NOTE | 2019-02-17 11:28 | NUR ---
MARKETING SERVICES REP AT BEDSIDE/MYA JOSE GI TECHS AT BEDSIDE PREPARING FOR SCHEDULED PEG TUBE PLACEMENT. PAGED DR JOSE TO NOTIFY OF DECREASED POTASSIUM, AWAITING RESPONSE.
--- NOTE | 2019-02-17 11:29 | NUR ---
RETURN CALL FROM HOSPITALIST DR JOSE UPDATED ON LAB RESULTS, DR JOSE STATED SHE WOULD REVIEW AND ORDER REPLACEMENT.
--- NOTE | 2019-02-17 11:40 | NUR ---
EGD IN PROCESS FOR PEG PLACEMENT, DR HIGH ORDERED 5 MG PROPOFOL TO BE ADMINISTERED IVP, VSS AND DOCUMENTED - DECREASE SBP 88, ORDERS FOR 400 MLS IVF BOLUS RECEIVED FROM DR HIGH, SBP INCREASED 127/38 - AWAITING COMPLETION.
[2019-02-17] MEDS ORDERED: ceFAZolin 1GM/50ML 50 ML IV ONE (11:43)
[2019-02-17] MEDS ORDERED: POTASSIUM EFFERVESENT TAB 25 MEQ GT ONE ×2 (11:45)
--- NOTE | 2019-02-17 11:50 | NUR ---
PAGED DR MARQUEZ TO NOTIFY OF MORNING ABG, CXR RESULTS. AWAITING RESPONSE.
--- NOTE | 2019-02-17 12:37 | NUR ---
PAGED DR JOSE REGARDING ORDERED POTASSIUM REPLACEMENT. CANNOT USE PEG TUBE FOR [address] HIGH - NEED TO CHANGE PO POTASSIUM TO IVP. AWAITING RESPONSE.
--- NOTE | 2019-02-17 12:40 | NUR ---
RETURN CALL FROM HOSPITALIST ORDERED TO DISCONTINUE EFFERVESCENT POTASSIUM AND ORDER 60 MEQ POTASSIUM IVP RIDER INSTEAD. ORDERS WILL BE CARRIED OUT.
--- NOTE | 2019-02-17 13:03 | NUR ---
FAMILY AT BEDSIDE PATIENT'S SPOUSE HERRERA AT BEDSIDE, UPDATED ON PATIENT'S STATUS, VERBALIZED UNDERSTANDING.
[2019-02-17] MEDS: POTASSIUM CHL 20MEQ/100ML 100 ML IV SCH ×3 (13:21→20:30)
--- NOTE | 2019-02-17 13:21 | NUR ---
PULMONOLOGY AT BEDSIDE DR MARQUEZ UPDATED ON PATIENT'S STATUS, LUNG SOUNDS AND PEG TUBE PLACEMENT. DR MARQUEZ DISCUSSED PLAN OF CARE WITH PATIENT'S SPOUSE HERRERA AT BEDSIDE. ORDERS FOR CPAP ATTEMPT RECEIVED - PATED Victorina KABA TO NOTIFY, AWAITING RESPONSE.
--- NOTE | 2019-02-17 14:00 | NUR ---
PT. PLACED ON CPAP TRIAL PS 8,PEEP 8, PER DR. MARQUEZ'S ORDERS,TAKEN BY MILAGROS GEORGE. , ABG TO FOLLOW IN ONE HOUR.
--- NOTE | 2019-02-17 14:29 | NUR ---
SPOKE WITH DIRECTOR ENTERPRISE SYSTEMS DR MARQUEZ NOTIFIED OF CPAP STARTED AT 1400 AND RESPIRATORY RATE 30/31, NO RESPIRATORY DISTRESS NOTED, RESPIRATIONS EVEN AND UNLABORED. DR MARQUEZ ORDERED PATIENT TO REMAIN ON CPAP AT THIS TIME. IF RR INCREASES TO [address] PATIENT BACK ON AC MODE - ABG 45 TO 1 HOUR AFTER CPAP. Victorina KABA NOTIFIED. SPOUSE HERRERA REMAINS AT BEDSIDE.
[2019-02-17] MEDS ORDERED: VANCOMYCIN PER PHARMACY 0 MG IV SCH (14:30)
--- NOTE | 2019-02-17 15:37 | NUR ---
PAGED DR MARQUEZ TO NOTIFY OF ABG RESULTS, AWAITING RESPONSE.
[2019-02-17] MEDS: PROPOFOL 100 ML IV SCH (17:35)
[2019-02-17] MEDS: fentaNYL Drip 2500mCg/250mlNS 250 ML IV SCH (17:35)
[2019-02-17] MEDS ORDERED: VANCOMYCIN 1GM/250ML 250 ML IV SCH (18:00)
--- NOTE | 2019-02-17 18:20 | NUR ---
CONTACT PHARMACIST REGARDING RUNNING MEROPENEM AND VANCOMYCIN TOGETHER - PER PHARMACISTS PAYTON, "OK TO GIVE TOGETHER BECAUSE PATIENT HAS HAD MEROPENEM BEFORE WITH NO ALLERGIC REACTION".
--- NOTE | 2019-02-17 18:24 | NUR ---
RETURN CALL FROM PHARMACISTS DO NOT ADMINISTER VANCOMYCIN UNTIL AFTER MEROPENEM IS COMPLETED. "VANCOMYCIN IS MIXED IN DEXTROSE AND MEROPENEM MAY NOT BE COMPATIBLE WITH DEXTROSE, HAVE BAND SPLICER ADMINISTER VANCOMYCIN ONCE ITS COMPLETED". WILL ENDORSE TO BAND SPLICER RN WELL ONE MORE DOSE OF POTASSIUM IVP.
--- NOTE | 2019-02-17 19:15 | NUR ---
END OF SHIFT NOTE PATIENT MECHANICALLY VENTILATED, NON SEDATED - VSS AND DOCUMENTED, PATIENT OPENS EYES SPONTANEOUSLY OR WHEN CALLED BY NAME, FOLLOWS SIMPLE COMMANDS, RESPIRATIONS EVEN AND UNLABORED, NO DISTRESS NOTED. ENDORSED CONTINUED CARE AND POTASSIUM AND VANCOMYCIN ADMINISTRATION TO LAGGING MACHINE OPERATOR RN.
--- NOTE | 2019-02-17 20:00 | NUR ---
ADMITTED INITIALLY TO [facility] ON THE FIRST OF FEB. DIAGNOSIS: METABOLIC ENCEPHALOPATHY, ASPIRATION PNA. INTUBATED ON FEB 09. OPENS EYES. GRIMACES WHEN YOU MOVE HER RIGHT ARM. DOES NOT WITHDRAW TO PAINFUL STIMULI. LUNGS COARSE. LAVAGE AND SUCTION THE ETT. THICK CREAMY SECRETIONS. ORAL CARE . ABDOMEN SOFT. PEG IN PLACE WITH CLEAN, DRY DRESSING. UNABLE TO USE THE PEG UNTIL TOMORROW. NO NGT. SWANSON IN PLACE DRAINING CLEAR YELLOW LIQUID. ALL PULSES ARE WEAK. DOPPLER PULSES ON FEET. TRANSFER ORDER STILL IN PLACE. NO BEDS AT [facility] [place]. RIGHT MIDLINE DRESSING CHANGE. HAS BEEN OFF SEDATION SINCE February. 3RD BAG OF KCL HUNG. BLOOD PRESSURE CUFF ON LEFT LOWER LEG. SCD ON RIGHT LEG. BECKI FOAM BOOTS ON FEET. LEFT ARM IS 85% BRUISED. RIGHT ARM IS 65% BRUISED. RIGHT HAND IS MORE SWOLLEN THAN THE LEFT. PLAN FOR CPAP TRIAL TOMORROW.
--- NOTE | 2019-02-17 22:00 | NUR ---
REPOSITIONED TO LEFT. ORAL CARE DONE. GRIMACES WHEN I SUCTION HER MOUTH. DID NOT WITHDRAW TO PAINFUL STIMULI. PASSED FLATUS. LUNGS COARSE. NSR WITHOUT ECTOPY. LABETOLOL GIVEN FOR A SYSTOLIC OF 183. HR STAYED AT 60. SBP DECREASED.
[2019-02-17] MEDS: LABETALOL HCL 5 MG/ML 4ML SYRINGE IV PRN (22:35)
[2019-02-18] VITALS (98 sets, daily range): BP systolic 112–182; BP diastolic 19–77
--- NOTE | 2019-02-18 | NUR ---
OPENS EYES. GRIMACES. ORALLY INTUBATED. PEG SITE CLEAN AND DRY . NO USING THE PEG UNTIL 1300 TODAY. LAVAGED AND SUCTIONED THE ETT. THICK CREAMY SECRETIONS. ARMS AND HANDS REMAIN SWOLLEN. NSR WITHOUT ECTOPY. IV SITE CLEAN AND DRY.
[2019-02-18] MEDS: ACCU-CHEK COMFORT CURVE STRIP VI SCH ×6 (00:15→20:20)
[2019-02-18] MEDS: InsuLIN REG 1unit/0.01ml Soln (100units/ml) SC SCH ×6 (00:19→20:20)
--- NOTE | 2019-02-18 01:25 | NUR ---
SBP 144, LABETOLOL NOT NEEDED
--- NOTE | 2019-02-18 02:00 | NUR ---
NO CHANGE NEUROLOGICALLY. LUNGS COARSE. SUCTIONED A SMALLER AMOUNT OF CREAMY SECRETIONS.ORAL CARE DONE. REPOSITIONED. 100% V PACED.
--- NOTE | 2019-02-18 03:13 | NUR ---
AM LABS DRAWN BY LAB. UNABLE TO USE THE MIDLINE FOR LABS
--- NOTE | 2019-02-18 04:00 | NUR ---
CHG BATH. PULL SHEET AND PAD LINEN CHANGE. 100% V PACED. RATE OF 60. SBP UNDER THE PARAMETER. LUNGS COARSE. CREAMY SECRETIONS FROM THE MOUTH AND ETT. ABDOMEN ROUND AND SOFT. NO BM. SWANSON IN PLACE DRAINING CLEAR YELLOW LIQUID TO DOWN DRAIN BAG. FOAM BOOTS OFF FOR BATH. PEDAL PULSES REMAIN VERY WEAK. PEDALS WITH DOPPLER. BOTH FEET ARE WARM.MOVES FINGERS AND RIGHT LEG SLIGHTLY. PLAN FOR CPAP TODAY.
[2019-02-18 04:53] LABS: Potassium 3.7 mmol/L (3.5-5.1)
[2019-02-18 04:56] LABS: BUN/Creatinine Ratio 34.8; Calcium 7.9 mg/dL (8.5-10.1)
[2019-02-18] MEDS: FREE WATER GT SCH ×4 (05:40→17:40)
[2019-02-18] MEDS: MEROPENEM 1GM IVPB 100 ML IV SCH ×3 (05:40→22:01)
[2019-02-18] MEDS: ALBUTEROL SULF 2.5 MG/0.5ML(0.5%) NEB SOLN NEB SCH ×3 (06:53→18:02)
[2019-02-18] MEDS: IPRATROPIUM BROM 0.5 MG/2.5ML INH SOL NEB SCH ×3 (06:54→18:03)
[2019-02-18] MEDS: INSULIN LANTUS (GLARGINE) 1 /0.01ml (100units/ml) SC SCH ×2 (07:00→22:01)
--- NOTE | 2019-02-18 09:50 | NUR ---
HOSPITALIST/FAMILY AT BEDSIDE DR JOSE UPDATED ON PATIENT'S STATUS, MORNING LABS AND [facility] [employer]'S INABILITY TO OBTAIN LAB CBC THIS MORNING X2 AND CPAP STATUS. DR JOSE DISCUSSED PLAN OF CARE WITH PATIENT'S SISTER CLAUDIA AT BEDSIDE. SISTER CLAUDIA VERBALIZED UNDERSTANDING. REGARDING CBC, DR JOSE AWARE THAT [facility] [employer] WILL ATTEMPT AT NOON.
[2019-02-18] MEDS: PANTOPRAZOLE 40 MG/10 ML VIAL INJ IV SCH ×2 (10:27→22:01)
[2019-02-18] MEDS: FUROSEMIDE 20 MG/2 ML VIAL IV SCH (10:27)
[2019-02-18] MEDS: FLUCONAZOLE 200MG/100ML 100 ML IV SCH (10:28)
--- NOTE | 2019-02-18 11:23 | NUR ---
DR HIGH AT BEDSIDE/OK TO USE PEG TUBE DR HIGH AT BEDSIDE - ASSESSED PEG TUBE - DR HIGH STATED "OK TO USE PEG TUBE AND START FEEDINGS". PATIENT'S SISTER AT BEDSIDE.
[2019-02-18] MEDS ORDERED: Glucerna 1.2 Cal 1Liter BOTTLE GT SCH (11:30)
[2019-02-18] MEDS: VANCOMYCIN 1GM/250ML 250 ML IV SCH (12:08)
--- NOTE | 2019-02-18 12:10 | NUR ---
PEG TUBE CLEANSED PEG TUBE ASSESSMENT AFTER DR HIGH VISITS, NOTED MINIMAL BLEEDING - AREA CLEANSED WITH STERILE WATER AND STERILE GAUZE PLACED IN BETWEEN SKIN AND PEG TUBE TO MAINTAIN SKIN INTEGRITY. PATIENT TOLERATED WELL, NO S/S NOTED OF DISCOMFORT OR PAIN. WHEN ASKED IF PATIENT IS IN PAIN PATIENT BLINKED EYES ONCE FOR "NO" - WHEN ASKED IF PATIENT WAS COLD PATIENT BLINKED EYES TWICE FOR "YES". PATIENT COVERED WITH BLANKET.
[2019-02-18 13:52] LABS: Basophils # (auto) 0.2 uL; Lymphocytes # (auto) 1.6 uL; Mean Corpuscular Hemoglobin 27.7 pg (28.0-32.0); Mean Corpuscular Hgb Conc. 30.9 g/dL (32.0-36.0); Monocytes # (auto) 0.9 uL
[2019-02-18 13:53] LABS: Basophils % (auto) 1.3 % (0.0-2.0); Eosinophils # (auto) 0.2 uL; Hematocrit 29.7 % (36.0-46.0); Hemoglobin 9.2 g/dL (12.2-16.2); Lymphocytes % (auto) 9.2 % (10.0-50.0); Mean Corpuscular Volume 89.5 fL (80.0-100.0); Monocytes % (auto) 5.3 % (0.0-12.0); Neutrophils # (auto) 14.8 uL; Neutrophils % (auto) 83.2 % (37.0-80.0); Nucleated Red Blood Cells % 0.2 %; Platelet Count (auto) 241 10^3/uL (140-450); Red Blood Cells 3.32 10^6/uL (4.0-5.20); Red Cell Distribution Width 18.1 % (11.8-14.3); White Blood Cell 17.8 10^3/uL (4.4-10.8)
[2019-02-18] MEDS: fentaNYL Drip 2500mCg/250mlNS 250 ML IV SCH (17:35)
[2019-02-18] MEDS: PROPOFOL 100 ML IV SCH (17:35)
--- NOTE | 2019-02-18 19:27 | NUR ---
END OF SHIFT NOTE PATIENT MECHANICALLY VENTILATED, NOT SEDATED, VSS AND DOCUMENTED, NO DISTRESS NOTED, RESPIRATIONS EVEN AND UNLABORED. PATIENT RESTING IN BED WITH EYES CLOSED. FALL AND SAFETY PRECAUTIONS IN PLACE. ENDORSED CONTINUED CARE TO CLIENT PROFESSIONAL RN.
--- NOTE | 2019-02-18 20:00 | NUR ---
PATIENT REMAINS INTUBATED. CPAP TRIAL TODAY. PLACED BACK ON ASSIST CONTROL , SAME SETTINGS. REMAINS 100% V PACED RATE OF 60. SBP STABLE. LUNGS SO CLEAR TODAY. NOTHING SUCTIONED FROM THE ETT. GT: SITE CLEANED WITH CHLOROPREP AND DRESSED WITH A FOAM DRESSING. GLUCERNA AT 20CC/HR. [address] CC RESIDUAL. SWANSON IN PLACE DRAINING CLEAR YELLOW LIQUID. BOTH ARMS REMAIN ECCHYMOTIC BUT THE SWELLING IS LESS. ALL PULSES PALPABLE. MIDLINE SITE SHOWS NO REDNESS OR SWELLING. MERREM FINISHING. IV TUBING CHANGE. FOAM BOOTS ON. BP CUFF ON RLL. SCD ON LEFT LOWER LEG. HAS BEEN OFF SEDATION SINCE 02/12/19.
--- NOTE | 2019-02-18 22:00 | NUR ---
REPOSITIONED. LUNGS COARSE. LAVAGED/SUCTIONED THE ETT FOR WHITE SECRETIONS. LUNGS DID NOT CLEAR AFTER SUCTIONING. ORAL CARE DONE. WHITE/CLOUDY SECRETIONS ORALLY. ABDOMEN SOFT. NO BM. CLEAR YELLOW LIQUID IN SWANSON BAG. 100% V PACED WITH A RATE OF 60.
[2019-02-19] VITALS (105 sets, daily range): BP systolic 30–149; BP diastolic 31–79
--- NOTE | 2019-02-19 | NUR ---
FREE WATER GIVEN. NO RESIDUAL FROM THE PEG. 100% VPACED RATE OF 60. SBP WITHIN PARAMETERS . LUNGS CLEAR THIS TIME. ORAL CARE DONE. SUCTIONED THE ETT FOR A MODERATE AMOUNT OF WHITE SECRETIONS. ABDOMEN SOFT. ALL EXTREMITIES WARM. PULSES PALPABLE.
[2019-02-19] MEDS: ACCU-CHEK COMFORT CURVE STRIP VI SCH ×6 (00:06→20:00)
[2019-02-19] MEDS: InsuLIN REG 1unit/0.01ml Soln (100units/ml) SC SCH ×6 (00:07→20:20)
--- NOTE | 2019-02-19 02:00 | NUR ---
NO CHANGE IN STATUS. VSS. SUCTIONED ETT FOR A MODERATE AMOUNT OF CREAMY SECRETIONS. ORAL CARE DONE. REPOSITIONED.
--- NOTE | 2019-02-19 03:00 | NUR ---
LABS DRAWN. CHG BATH AND COMPLETE LINEN CHANGE
[2019-02-19] MEDS: VANCOMYCIN 1GM/250ML 250 ML IV SCH ×2 (03:24→21:30)
--- NOTE | 2019-02-19 04:00 | NUR ---
NO CHANGE IN ASSESSMENT. MIDLINE DRESSING CLEAN AND DRY . PUPILS UNEQUAL. LEFT PUPIL FIXED. ARMS LESS SWOLLEN. ABDOMEN SOFT. PEG DRESSING CLEAN AND DRY. GLUCERNA AT 20CC/HR
[2019-02-19 04:05] LABS: Basophils # (auto) 0.1 uL; Basophils % (auto) 0.6 % (0.0-2.0); Eosinophils # (auto) 0.1 uL; Eosinophils % (auto) 0.8 % (0.0-7.0); Hematocrit 29.9 % (36.0-46.0); Hemoglobin 9.4 g/dL (12.2-16.2); Lymphocytes # (auto) 0.9 uL; Lymphocytes % (auto) 7.4 % (10.0-50.0); Mean Corpuscular Hemoglobin 28.1 pg (28.0-32.0); Mean Corpuscular Hgb Conc. 31.6 g/dL (32.0-36.0); Monocytes # (auto) 0.4 uL; Monocytes % (auto) 3.7 % (0.0-12.0); Neutrophils # (auto) 10.5 uL; Neutrophils % (auto) 87.5 % (37.0-80.0); Platelet Count (auto) 241 10^3/uL (140-450); Red Blood Cells 3.36 10^6/uL (4.0-5.20); Red Cell Distribution Width 18.4 % (11.8-14.3)
[2019-02-19 04:17] LABS: Albumin 1.8 g/dL (3.4-5.0); BUN/Creatinine Ratio 31.5; Calcium 8.1 mg/dL (8.5-10.1); Potassium 3.5 mmol/L (3.5-5.1)
[2019-02-19 04:19] LABS: Nucleated Red Blood Cells % 4.5 %
[2019-02-19 04:20] LABS: Bilirubin, Total 0.9 mg/dL (0.2-1.0); Total Protein 5.7 g/dL (6.4-8.2)
[2019-02-19] MEDS: MEROPENEM 1GM IVPB 100 ML IV SCH ×3 (06:26→22:12)
[2019-02-19] MEDS: INSULIN LANTUS (GLARGINE) 1 /0.01ml (100units/ml) SC SCH ×2 (06:26→22:22)
[2019-02-19] MEDS: FREE WATER GT SCH ×4 (06:27→17:45)
--- NOTE | 2019-02-19 06:27 | NUR ---
REPOSITIONED. ORAL CARE. SUCTIONED ETT FOR JUST A SMALL AMOUNT OF CREAMY WHITE SECRETIONS. 100% V PACED RATE 60
[2019-02-19] MEDS: ALBUTEROL SULF 2.5 MG/0.5ML(0.5%) NEB SOLN NEB SCH ×3 (06:31→19:13)
[2019-02-19] MEDS: IPRATROPIUM BROM 0.5 MG/2.5ML INH SOL NEB SCH ×3 (06:31→19:13)
--- NOTE | 2019-02-19 07:30 | NUR ---
REPORT REPORT RECEIVED FROM PARVIZ RNESTEFANY. BEDSIDE CHECK DONE.
--- NOTE | 2019-02-19 08:07 | NUR ---
ASSESSMENT PT RESTING IN BED WITH EYES CLOSED. ON THE VENTILATOR WITH NO SEDATION ON BOARD. NO SPONTANEOUS MOVEMENT NOTED. DOES NOT FOLLOW ANY SIMPLE COMMANDS. VENTILATOR SETTINGS OF: 7.5 FR ETT/ 25 AT THE LIP, TV 450, AC 12, 30% FIO2 AND PEEP OF 5. LUNGS CLEAR THROUGHOUT BUT DIMINISHED AT THE BASES POSTERIORLY. ETT LAVAGE AND SUCTION FOR SMALL AMOUNT OF THICK CREAMY FLUID. 98% SAT . TELE 100% PACED AT 60 WITH INVERTED T WAVES AND DEPRESSED ST IN LEADS I AND AVL, ELEVATED ST IN LEADS II, III, AVF AND V. PALPABLE PULSES TO ALL EXTREMITIES WITH EDEMA TO THE TOPS OF BOTH HANDS AND ANKLES. SCD TO LEFT LEG ONLY RIGHT LEG WITH BP CUFF. ABD SOFT WITH NO BOWEL SOUNDS NOTED. PEG TUBE WITH GLUCERNA 1.2 INFUSING AT 25 ML/HR WITH NO RESIDUAL NOTED. LAST BM WAS 02/17. SWANSON CATHETER DRAINING CLEAR YELLOW URINE. PT WITH BRUISING NOTED TO BOTH ARMS , ABD AND RIGHT UPPER BACK. EDEMA NOTED TO LEFT UPPER ARM. TURNED FOR COMFORT TO HER LEFT SIDE. SACRAL OPTIFOAM IN PLACE WITH SKIN INTACT. RAILS UP X4 AND BED IN LOW POSITION FOR PT SAFETY. CONTINUE TO MONITOR.
--- NOTE | 2019-02-19 08:10 | NUR ---
ACCUCHECK OF 170 AND PT GIVEN 4 UNITS OF REGULAR INSULIN SQ.
--- NOTE | 2019-02-19 09:50 | NUR ---
MD VISIT PT SEEN AND EXAMINED BY DR JOSE. WE DISCUSSED THE PT'S CURRENT CONDITION. LABS, ABG AND POC.
[2019-02-19] MEDS: PANTOPRAZOLE 40 MG/10 ML VIAL INJ IV SCH ×2 (09:53→22:13)
[2019-02-19] MEDS: FLUCONAZOLE 200MG/100ML 100 ML IV SCH (09:53)
[2019-02-19] MEDS: FUROSEMIDE 20 MG/2 ML VIAL IV SCH (09:53)
--- NOTE | 2019-02-19 10:21 | NUR ---
/CELINE REPORTED MORNING ABG RESULT TO DR MARQUEZ. NO NEW ORDERS.
--- NOTE | 2019-02-19 11:45 | NUR ---
ACCUCHECK OF 157 AND GIVEN 2 UNITS OF REGULAR INSULIN SQ.
--- NOTE | 2019-02-19 16:13 | NUR ---
ACCUCHECK OF 167 AND GIVEN 4 UNITS OF REGULAR INSULIN SQ.
[2019-02-19] MEDS: fentaNYL Drip 2500mCg/250mlNS 250 ML IV SCH (17:35)
[2019-02-19] MEDS: PROPOFOL 100 ML IV SCH (17:35)
--- NOTE | 2019-02-19 17:35 | NUR ---
PT DUE FOR VANCOMYCIN TROUGH. UNABLE TO PULL BLOOD OFF OF MIDLINE. GAS PRODUCER ATTEMPTED X1 WITHOUT SUCCESS. PT VERY EDEMATOUS. HE WILL SEND ANOTHER GAS PRODUCER TO TRY TO OBTAIN SAMPLE.
--- NOTE | 2019-02-19 17:50 | NUR ---
WHILE TURNING PT, SHE WAS INCONTINENT OF MODERATE AMOUNT OF LOOSELY FORMED LIGHT BROWN COLORED BM. CHRISTINE CARE GIVEN AND Z GUARD CREAM APPLIED TO PREVENT ANY BREAKDOWN.
--- NOTE | 2019-02-19 19:15 | NUR ---
SPOKE WITH JAVON, PHARMACIST , TO MAKE AWARE THAT I HAVE NOT GIVEN THE 1800 DOSE OF VANCOMYCIN WE HAVE NOT BEEN ABLE TO GET A BLOOD SAMPLE FOR THE ORDERED VANCOMYCIN TROUGH. SHE STATED THAT DECIDE WHETHER TO ADMINISTER WHEN THE VANCO TROUGH LEVEL IS AVAILABLE.
--- NOTE | 2019-02-19 19:45 | NUR ---
REPORT GIVEN TO NIGHT CIARAN CRAVEN AND SANDRA. Addendum: 02/19/19 at 1954 by Lesley Alexandre RN INFORMED THAT WE STILL NEED THE VANCO TROUGH LEVEL.
--- NOTE | 2019-02-19 21:30 | NUR ---
1800 VANCOMYCIN HELD RELATED TO HIGH VANCO TROUGH OF 30.1.
[2019-02-20] VITALS (90 sets, daily range): BP systolic 94–185; BP diastolic 15–85
[2019-02-20] MEDS: FREE WATER GT SCH ×4 (00:04→18:29)
[2019-02-20] MEDS: ACCU-CHEK COMFORT CURVE STRIP VI SCH ×6 (00:05→20:10)
[2019-02-20] MEDS: InsuLIN REG 1unit/0.01ml Soln (100units/ml) SC SCH ×6 (00:05→20:10)
[2019-02-20] MEDS: ACETAMINOPHEN 500 MG TAB PO PRN ×2 (02:51→16:44)
[2019-02-20 04:03] LABS: Eosinophils # (auto) 0.1 uL; Hemoglobin 8.3 g/dL (12.2-16.2); Monocytes # (auto) 0.4 uL; Neutrophils # (auto) 7.3 uL; Nucleated Red Blood Cells % 2.2 %; White Blood Cell 8.8 10^3/uL (4.4-10.8)
[2019-02-20 04:08] LABS: Basophils # (auto) 0.1 uL; Basophils % (auto) 0.7 % (0.0-2.0); Eosinophils % (auto) 0.7 % (0.0-7.0); Hematocrit 25.4 % (36.0-46.0); Lymphocytes # (auto) 0.9 uL; Lymphocytes % (auto) 10.6 % (10.0-50.0); Mean Corpuscular Hemoglobin 28.4 pg (28.0-32.0); Mean Corpuscular Hgb Conc. 32.6 g/dL (32.0-36.0); Mean Corpuscular Volume 87.1 fL (80.0-100.0); Monocytes % (auto) 4.8 % (0.0-12.0); Neutrophils % (auto) 83.2 % (37.0-80.0); Platelet Count (auto) 194 10^3/uL (140-450); Red Blood Cells 2.91 10^6/uL (4.0-5.20)
[2019-02-20 04:23] LABS: Potassium 3.3 mmol/L (3.5-5.1)
[2019-02-20 04:31] LABS: Albumin 1.7 g/dL (3.4-5.0); Bilirubin, Total 0.8 mg/dL (0.2-1.0); Calcium 7.7 mg/dL (8.5-10.1); Total Protein 5.5 g/dL (6.4-8.2)
[2019-02-20] MEDS: MEROPENEM 1GM IVPB 100 ML IV SCH ×3 (05:37→22:25)
[2019-02-20] MEDS: IPRATROPIUM BROM 0.5 MG/2.5ML INH SOL NEB SCH ×3 (06:26→18:23)
[2019-02-20] MEDS: ALBUTEROL SULF 2.5 MG/0.5ML(0.5%) NEB SOLN NEB SCH ×3 (06:26→18:23)
--- NOTE | 2019-02-20 07:30 | NUR ---
ASSESSMENT PT LAYING IN BED WITH EYES CLOSED. OPENS EYES WHEN NAME CALLED. ABLE TO SQUEEZE MY FINGERS WITH HER RIGHT HAND, BUT NO OTHER EXTREMITY MOVEMENT NOTED. ON THE VENTILATOR WITH SETTINGS OF: 7.5 FR ETT/ 24 AT THE LIP, TV 450, AC 14, 30% FIO2 AND PEEP OF 5. LUNGS CLEAR THROUGHOUT BUT DIMINISHED AT THE BASES. LAVAGED AND SUCTIONED FOR THICK CREAMY SECRETIONS. TELE 100% PACED AT 60-62. SCD TO LEFT LEG AND BP CUFF TO RIGHT. HEEL PROTECTORS TO BLE. GENERALIZED EDEMA AND + 2 PITTING TO RIGHT HAND, +1 PITTING TO LEFT HAND, +1 PITTING EDEMA TO BOTH ANKLES. ABD SOFT WITH ACTIVE BOWEL SOUNDS. PEG TUBE IN PLACE WITH INSERTION SITE CLEAR WITH DRY DRESSING. SWANSON CATHETER DRAINING CLEAR DARK YELLOW URINE. 2 INTACT BLISTERS TO THE TOP OF TH RIGHT HAND. BRUISING TO BOTH ARMS, LEFT CHEST, RIGHT UPPER BACK, AND ABD. SACRAL OPTIFOAM IN PLACE WITH SKIN UNDER CLEAR. SMALL RAISED RED LINE ON RIGHT INNER UPPER THIGH, BLANCHABLE. TURNED TO HER RIGHT SIDE. RAILS UP X4 AND BED IN LOW POSITION FOR PT SAFETY.
--- NOTE | 2019-02-20 07:30 | NUR ---
REPORT REPORT RECEIVED FROM PARVIZ RNS, NEHA. BEDSIDE CHECK DONE.
[2019-02-20] MEDS: VANCOMYCIN 1GM/250ML 250 ML IV SCH (09:00)
[2019-02-20] MEDS: INSULIN LANTUS (GLARGINE) 1 /0.01ml (100units/ml) SC SCH ×2 (09:14→22:25)
--- NOTE | 2019-02-20 09:17 | NUR ---
HELD 0900 DOSE OF VANCOMYCIN AM TROUGH LEVEL OF 26.5 . ADMINISTERED AM DOSE OF LANTUS INSULIN 15 UNITS MED WAS NOT AVAILABLE EARLIER. BLOOD SUGAR OF 165.
[2019-02-20] MEDS: FLUCONAZOLE 200MG/100ML 100 ML IV SCH (09:43)
[2019-02-20] MEDS: FUROSEMIDE 20 MG/2 ML VIAL IV SCH (09:43)
[2019-02-20] MEDS: PANTOPRAZOLE 40 MG/10 ML VIAL INJ IV SCH (09:43)
[2019-02-20] MEDS ORDERED: POTASSIUM EFFERVESENT TAB 25 MEQ PO ONE (10:45)
[2019-02-20] MEDS ORDERED: POTASSIUM EFFERVESENT TAB 25 MEQ GT ONE (10:45)
--- NOTE | 2019-02-20 11:20 | NUR ---
Nutrition Follow-up Notes Wt.: 86.9 kg today. Pt remains intubated, non-sedated, currently NPO with EN support of Glucerna 1.2 Bayron @ 50 ml/hr providing 1440 kcal, 72 gms pro, 966 ml free water, tolerates feeding well, had 5 ml minimal residuals noted by RN this morning. Pt with adequate EN support d/t mod initiation rate delivery of concentrated formula aeb current EN infusion meets 76% to 93% of est caloric needs and 64% to 83% of est protein needs. Noted pt's for active Wound consult. Est. Needs CBW(87 kg): 3160-9605 kcals (18-22 kcal/kgBW) and 87-113 gms/day (1.0-1.3 gm/kg BW reassessed d/t severe hypoalbuminemia)Will continue to monitor pertinent labs and reassess nutrient need prn Labs: Gluc 155 H, Cl 110 H, K 3.3 L, BUN 28 H, Ca 7.7 L, ALP 238 H; Tpro 5.7 L, Alb 1.7 L Skin: Tyrese scale 14, mod risk, pt's left right arms abrasion per electrician. Pls refer to latest data virtualization consultant's notes for further details GI: Pt had 1 BM this morning per electrician. PES: Increased nutrient needs r/t acute/chronic medical condition aeb intubated, severe hypoalbuminemia, NPO. Altered nutrition related lab values r/t current/chronic medical condition aeb hyperglycemia, hypercapnia, hyperchloremia, elev. BUN ALP, hypocalcemia and severe hypoalbuminemia Obesity r/t food intake more than body requirement aeb 159% IBW, BMI 32.8 kg/m2 and increased body adiposity Will continue to monitor NPO status, EN tolerance, skin status, pertinent labs and weight trend. F/u in 2 to 3 days. Rec.: 1.) If still NPO with EN support, consider gradual increase on feeding rate of Glucerna 1.2 Bayron @ 65 ml/hr goal rate as tolerated when medically appropriate. 2.) If Albumin continues trending down, consider Prostat 1 pkt BID. 3.) Consider daily MVI with minerals and Asc acid 500 mgs BID. 4.) Advance gradually to oral diet when medically appropriate. 5.) Refer pt to CDE/RD for further nutrition education and weight monitoring upon discharge. 6.) Continue current plan of care.
--- NOTE | 2019-02-20 14:12 | NUR ---
MD VISIT PT SEEN AND EXAMINED BY DR JOSE. I UPDATED HER ON THE PT'S CURRENT CONDITION. ORDERS RECEIVED. WILL OBTAIN URINE AND SPUTUM CULTURE DUE TO TEMPS LAST NIGHT UP TO 101.7 AND CURRENT TEMP OF 100.0(R). MADE HER AWARE OF ELEVATED VANCO TROUGH LEVELS AND SHE STATED SHE WILL BR DISCONTINUING THE VANCOMYCIN.
--- NOTE | 2019-02-20 14:45 | NUR ---
CPAP TRIAL PT STARTED PER MD ORDER OF DR MARQUEZ. CPAP WITH 30% FIO2 , PEEP OF 5 AND PRESSURE SUPPORT OF 8. LUNGS CLEAR THROUGHOUT. VS: 100.0(R) 60-20-99% AND 141/38. CONTINUE TO MONITOR.
--- NOTE | 2019-02-20 15:00 | NUR ---
VS: 100.0 (R), 60-30-99 159/45. CONTINUE TO MONITOR.
--- NOTE | 2019-02-20 15:58 | NUR ---
NOTIFIED DR MARQUEZ OF VS: 100.2 60-33-99% AND 177/28. OKAY TO CONTINUE WITH CPAP UNLESS RR MORE THAN 35. HE WANTS ME TO GIVE ORDERED LABETALOL FOR THE HIGH BP AND CONTINUE WITH THE CPAP TEST.
[2019-02-20] MEDS: LABETALOL HCL 5 MG/ML 4ML SYRINGE IV PRN (16:06)
--- NOTE | 2019-02-20 16:06 | NUR ---
LABETALOL GIVEN ORDERED FOR BP OF 169/38.
[2019-02-20 16:20] LABS: INR 1.06 (0.9-1.15)
--- NOTE | 2019-02-20 16:41 | NUR ---
I called [facility] and left message for feed house supervisor asking about bed availability. I called [facility] and left message asking about bed availability. Called [facility] and spoke with Tatiana-he will have [place] in bed control call me back and let me know if they have any ICU beds available. I called [facility] and left message with feed house supervisor asking about bed availability.
--- NOTE | 2019-02-20 16:44 | NUR ---
TYLENOL 500 MG GIVEN VIA PEG TUBE FOR TEMP OF 100.4. ICE PACKS IN PLACE.
[2019-02-20 16:55] LABS: Urine Bacteria NONE SEEN /hpf (None Seen); Urine Blood Negative /uL (Negative); Urine Hyaline Cast FEW /lpf (0 - 2); Urine Specific Gravity 1.022 (1.001-1.035); Urine WBC 3 /hpf (0 - 5)
--- NOTE | 2019-02-20 17:05 | NUR ---
Respiratory note: CPAP TRIAL TERMINATED DUE TO INCREASE RR OF > 36 BPM. PT PLACED BACK ON AC RR 12, VT 450, PEEP +5, FIO2 30% PER DR MARQUEZ VERBAL ORDER. PT TOLERATING VENT CHANGES WELL. WILL ENDORSE PT STATUS TO ROCK CONTRACTOR.
[2019-02-20] MEDS: PROPOFOL 100 ML IV SCH (17:35)
[2019-02-20] MEDS: fentaNYL Drip 2500mCg/250mlNS 250 ML IV SCH (17:35)
[2019-02-20] MEDS ORDERED: WARFARIN SODIUM 5 MG TAB PO ONE (18:00)
--- NOTE | 2019-02-20 18:00 | NUR ---
FAMILY PT'S AT THE BEDSIDE AND UPDATED ON THE PT'S CURRENT CONDITION AND POC.
--- NOTE | 2019-02-20 19:30 | NUR ---
REPORT GIVEN AND BEDSIDE CHECK DONE.
--- NOTE | 2019-02-20 20:00 | NUR ---
OPEN ASSUMED CARE OF FEMALE PT ORALLY INTUBATED. PT NOT ON SEDATION. PT LAYING IN BED WITH EYES CLOSED. OPENS EYES WHEN NAME CALLED. ABLE TO MOVE RIGHT HAND. NO OTHER EXTREMITY MOVEMENT OBSERVED. ON THE VENTILATOR WITH SETTINGS OF: 7.5 FR ETT/ 24 AT THE LIP, TV 450, AC 14, 30% FIO2 AND PEEP OF 5. LUNGS CLEAR THROUGHOUT BUT DIMINISHED AT THE BASES. LAVAGED AND SUCTIONED FOR THICK CREAMY SECRETIONS. PT 100% VPACED ON TRIAL CONSULTANT. SCD TO LEFT LEG AND BP CUFF TO RIGHT LEG. HEEL PROTECTORS TO BLE. GENERALIZED EDEMA AND + 2 PITTING TO RIGHT HAND, +1 PITTING TO LEFT HAND, +1 PITTING EDEMA TO BOTH ANKLES. ABD SOFT WITH ACTIVE BOWEL SOUNDS. PEG TUBE IN PLACE WITH INSERTION SITE CLEAR WITH DRY DRESSING. PT TOLERATION GLUCERNA FEEDINGS. SWANSON CATHETER DRAINING CLEAR DARK YELLOW URINE. 2 INTACT BLISTERS TO THE TOP OF TH RIGHT HAND. BRUISING TO BOTH ARMS, LEFT CHEST, RIGHT UPPER BACK, AND ABD. SACRAL OPTIFOAM IN PLACE PREVENTATIVE. SMALL RAISED RED LINE ON RIGHT INNER UPPER THIGH, BLANCHABLE. TURNED PT TO L. SIDE WITH PILLOWS USED TO OFFLOAD BONY PROMINENCES AND UPPER EXT'S. RAILS UP X2 AND BED IN LOWEST LOCKED POSITION FOR PT SAFETY. HOB ELEVATED 35 DEGREES. NO INDICATION OF PAIN OBSERVED. PT IN FULL VIEW OF RN STATION.
--- NOTE | 2019-02-20 22:00 | NUR ---
COOLING MEASURES PT TEMP INCREASE TO 100.2 ROOM TEMP COOLED WITH FAN. ICE PAKS PLACED TO MARIA R AXILLA AND MARIA R GROIN WITH BARRIER TO PROTECT SKIN. WILL CONTINUE TO MONITOR.
--- NOTE | 2019-02-20 23:30 | NUR ---
CARE ASSUMED. ASSESSMENT: OPEN EYES SPONTANEOUSLY AND ON COMMAND. SQUEEZE RIGHT HAND ON COMMANDS. WITHDRAWS LEFT UPPER EXTREMITY AND BILAT. FEET TO STIMULATION. DOES NOT ATTEMPT TO SPEAK. CONTINUES VENTED, SATS 99%, RR 20'S. TEMP 99.7, ICE PACKS TO NECK, GROIN AND UNDERARM. FAN ON. SWANSON TO DD, CLEAR, ALBA, CLEAR, URINE. RUML INTACT. SBP 160'S.
[2019-02-21] VITALS (46 sets, daily range): BP systolic 111–180; BP diastolic 32–81
--- NOTE | 2019-02-21 00:30 | NUR ---
RESIDUAL - 0. 200 CC WATER FLUS.
[2019-02-21] MEDS: LABETALOL HCL 5 MG/ML 4ML SYRINGE IV PRN ×2 (01:15→01:19)
[2019-02-21 04:00] LABS: Basophils # (auto) 0 uL; Basophils % (auto) 0.4 % (0.0-2.0); Eosinophils # (auto) 0.1 uL; Eosinophils % (auto) 0.5 % (0.0-7.0); Hematocrit 28.6 % (36.0-46.0); Lymphocytes # (auto) 1.2 uL; Lymphocytes % (auto) 11.2 % (10.0-50.0); Mean Corpuscular Hemoglobin 27.9 pg (28.0-32.0); Mean Corpuscular Hgb Conc. 31.4 g/dL (32.0-36.0); Mean Corpuscular Volume 88.9 fL (80.0-100.0); Monocytes # (auto) 0.5 uL; Monocytes % (auto) 4.7 % (0.0-12.0); Neutrophils # (auto) 9.1 uL; Neutrophils % (auto) 83.2 % (37.0-80.0); Nucleated Red Blood Cells % 1.2 %; Platelet Count (auto) 201 10^3/uL (140-450); Red Blood Cells 3.22 10^6/uL (4.0-5.20); Red Cell Distribution Width 19.3 % (11.8-14.3); White Blood Cell 10.9 10^3/uL (4.4-10.8)
--- NOTE | 2019-02-21 04:00 | NUR ---
NO RESIDUAL. TOLERATING WATER FLUSHES.
[2019-02-21 04:10] LABS: INR 1.07 (0.9-1.15)
[2019-02-21] MEDS: ACCU-CHEK COMFORT CURVE STRIP VI SCH ×6 (04:12→20:00)
[2019-02-21] MEDS: InsuLIN REG 1unit/0.01ml Soln (100units/ml) SC SCH ×6 (04:15→20:00)
[2019-02-21 04:23] LABS: Potassium 4.3 mmol/L (3.5-5.1)
[2019-02-21] MEDS: Glucerna 1.2 Cal 1Liter BOTTLE GT SCH (04:23)
[2019-02-21 04:32] LABS: BUN/Creatinine Ratio 38.4; Calcium 8.3 mg/dL (8.5-10.1)
[2019-02-21] MEDS: FREE WATER GT SCH ×4 (05:51→18:06)
[2019-02-21] MEDS: MEROPENEM 1GM IVPB 100 ML IV SCH ×3 (05:52→22:13)
[2019-02-21] MEDS: ALBUTEROL SULF 2.5 MG/0.5ML(0.5%) NEB SOLN NEB SCH ×3 (06:28→19:13)
[2019-02-21] MEDS: IPRATROPIUM BROM 0.5 MG/2.5ML INH SOL NEB SCH ×3 (06:28→19:13)
[2019-02-21] MEDS: INSULIN LANTUS (GLARGINE) 1 /0.01ml (100units/ml) SC SCH ×2 (08:04→22:13)
--- NOTE | 2019-02-21 09:00 | NUR ---
OPEN RECEIVED REPORT FROM PARVIZ RNKAY, ASSUMED CARE OF ICU PATIENT, FULL CODE STATUS. PATIENT INTUBATED ON VENT, CURRENT FIO2 AT 30 %. #7.5 ETT, 24 CM AT LIP. PEG TUBE WITH GLUCERNA TUBE FEEDING AT 60 ML/HR, NO RESIDUALS AT THIS TIME. SWANSON TO GRAVITY. MARIA R SCD'S TO LE. RIGHT UPPER ARM MIDLINE IV AT KVO, PATENT AND FLUSHED. WILL CONTINUE TO TURN PATIENT Q2HRS AND PRN. OFF LOADING PRESSURE AREAS WITH PILLOWS. SEE DICE TABLE PERSON AND IV FLOW SHEET FOR GTTS AND TITRATIONS MADE. CONTINUE CARE.
--- NOTE | 2019-02-21 09:04 | NUR ---
DR. MARQUEZ CALLED: ORDERS MD UPDATED ON PT'S STATUS AND HEMODYNAMICS AT THIS TIME. ORDERS GIVEN TO PLACE PATIENT ON CPAP TRIAL THIS AM. WILL INFORM R.T. CONTINUE CARE.
--- NOTE | 2019-02-21 09:10 | NUR ---
CPAP TRIAL STARTED AT THIS TIME PER MD ORDERS. CURRENT VITALS HR 61, RR 22, BP 125/44, SATS 100%, RECTAL TEMP 99.7. WILL CONTINUE TO MONITOR.
--- NOTE | 2019-02-21 09:10 | NUR ---
PT SWITCHED TO CPAP PS 8, PEEP5, 30% FIO2. PT OFF SEDATION AND IS AWAKE. PT CALM ON CPAP. APPROPRIATE ALARMS SET AND AUDIBLE.
--- NOTE | 2019-02-21 09:11 | NUR ---
0900 02/21/19 Contacted Darlene at [facility] and requested that authorization be provided for patient's continued stay. I did let her know that I have reached out to several [facility] contracted facilities today-[facility], [facility] and [facility] I left message for housekeeping manager asking about bed availability. I called [facility] and spoke with Jcaque-they have no ICU beds available. I called [facility] and spoke with Karen Chambers-they have no ICU beds available. I called [facility] and spoke with Nidhi-they have no ICU beds available. I called [facility]-they do not have an ICU. Unable to connect with piano case and bench assembler after 2 phone call attempts. Provided message stating the above on [employer] at [phone] extension [phone].
[2019-02-21] MEDS: FLUCONAZOLE 200MG/100ML 100 ML IV SCH (09:54)
[2019-02-21] MEDS: FUROSEMIDE 20 MG/2 ML VIAL IV SCH (09:55)
--- NOTE | 2019-02-21 12:06 | NUR ---
CPAP TRIAL TERMINATED AT THIS TIME DUE TO HIGH RR >35 AND LOW VT <300mL. UNABLE TO OBTAIN NIF. PT SWITCHED BACK TO AC RR 12, VT 450, PEEP5, 30% FIO2. SPO2 100%.
[2019-02-21] MEDS: MORPHINE SULF INJ 2 MG/ML SYRINGE 1ML IV PRN (12:33)
[2019-02-21] MEDS ORDERED: amLODIPine BESYLATE 5 MG TAB PO ONE (13:45)
--- NOTE | 2019-02-21 13:46 | NUR ---
DR. JOSE AT BEDSIDE: ORDERS MD UPDATED ON PT'S STATUS, FAILED CPAP FROM THIS AM AND HEMODYNAMICS AT THIS TIME. ORDERS GIVEN AND TO BE CARRIED OUT. PATIENT TO BE STARTED ON NORVASC 10 MG VIA GT DAILY, FIRST DOSE NOW. CONTINUE CARE.
[2019-02-21] MEDS: PROPOFOL 100 ML IV SCH (16:14)
[2019-02-21] MEDS: fentaNYL Drip 2500mCg/250mlNS 250 ML IV SCH (16:14)
[2019-02-21] MEDS ORDERED: WARFARIN SODIUM 2.5 MG TAB PO ONE (17:00)
--- NOTE | 2019-02-21 18:01 | NUR ---
DR. MARQUEZ AT BEDSIDE: ORDERS MD UPDATED ON PT'S STATUS, HEMODYNAMICS AND POC FOR TODAY. INFORMED ON FAILED CPAP TRIAL. ORDERS GIVEN AND TO BE CARRIED OUT. CONTINUE CARE.
--- NOTE | 2019-02-21 19:30 | NUR ---
Open Received pt on mechanical ventilator. No sedation at this time. Pt will spontaneously open eyes. No extremity movement noted. Full assessment done see interventions. V paced at 60 on bedside nurse monitoring. Peg tube in place with feedings on at 60 ml/hr. No residuals aspirated. Skin intact, with two blisters to right hand. Abrasion to right thigh. pitting edema to extremities. right arm more swollen then left and warmer to touch than left arm. Will inform MD. Marques catheter intact, secured below bladder, patent, free of kinks, and draining orange dark yellow urine. All alarms on and audible. Pt in full view of RN. Pt repositioned for comfort. Will continue to monitor closely.
--- NOTE | 2019-02-21 22:30 | NUR ---
ELIMINATION Small light brown BM smear. Cleansed pt and performed linen change. pt tolerated well.
[2019-02-22] VITALS (48 sets, daily range): BP systolic 113–149; BP diastolic 42–68
[2019-02-22] MEDS: ACCU-CHEK COMFORT CURVE STRIP VI SCH ×7 (00:10→23:30)
[2019-02-22] MEDS: InsuLIN REG 1unit/0.01ml Soln (100units/ml) SC SCH ×7 (00:10→23:31)
--- NOTE | 2019-02-22 04:00 | NUR ---
RESIDUALS NO HIGH RESIDUALS ASPIRATED FROM PEG TUBE. PT TOLERATING TUBE FEEDING AND FREE WATER FLUSHES WELL. WILL CONTINUE TO MONITOR
[2019-02-22 04:01] LABS: INR 1.18 (0.9-1.15)
[2019-02-22] MEDS: MEROPENEM 1GM IVPB 100 ML IV SCH ×3 (06:20→21:35)
[2019-02-22] MEDS: FREE WATER GT SCH ×5 (06:20→23:30)
[2019-02-22] MEDS: IPRATROPIUM BROM 0.5 MG/2.5ML INH SOL NEB SCH ×3 (06:57→18:06)
[2019-02-22] MEDS: ALBUTEROL SULF 2.5 MG/0.5ML(0.5%) NEB SOLN NEB SCH ×3 (06:57→18:06)
[2019-02-22] MEDS: INSULIN LANTUS (GLARGINE) 1 /0.01ml (100units/ml) SC SCH ×2 (07:26→21:35)
--- NOTE | 2019-02-22 07:30 | NUR ---
AM ASSESSMENT COMPLETED.
--- NOTE | 2019-02-22 08:52 | NUR ---
I called [facility] and spoke with warehouse associate driver Carly, she said they have no ICU beds available and have 6 patients in their ER waiting for an ICU bed. I called [facility] [phone] and left message for warehouse associate driver asking about bed availability.
[2019-02-22] MEDS: FLUCONAZOLE 200MG/100ML 100 ML IV SCH (10:20)
[2019-02-22] MEDS: amLODIPine BESYLATE 5 MG TAB PO SCH (10:21)
[2019-02-22] MEDS: FUROSEMIDE 40 MG/4 ML VIAL IV SCH (10:33)
--- NOTE | 2019-02-22 11:16 | NUR ---
I called [facility] [phone] and spoke with housekeeping department worker Breanna, she said they have no ICU beds available at this time and have patients waiting in their ER for an ICU bed.
--- NOTE | 2019-02-22 11:17 | NUR ---
I called [facility] and left message at the transfer center asking about bed availability.
[2019-02-22 12:29] LABS: Albumin 1.6 g/dL (3.4-5.0); Anion Gap 8 (5-15); BUN/Creatinine Ratio 47.5; Blood Urea Nitrogen 28 mg/dL (7-18); Calcium 7.9 mg/dL (8.5-10.1); Carbon Dioxide 25 mmol/L (21-32); Chloride 107 mmol/L (98-107); GFR African American 132 mL/min; GFR Non-African American 109 mL/min; Glucose 152 mg/dL (74-106); Potassium 4.2 mmol/L (3.5-5.1); Sodium 140 mmol/L (136-145)
[2019-02-22 12:31] LABS: Alanine Aminotransferase 35 U/L (13-56); Alkaline Phosphatase 243 U/L (45-117); Aspartate Aminotransferase 41 U/L (15-37); Bilirubin, Total 0.5 mg/dL (0.2-1.0); Total Protein 5.6 g/dL (6.4-8.2)
[2019-02-22 13:37] LABS: Basophils # (auto) 0.1 uL; Basophils % (auto) 0.7 % (0.0-2.0); Eosinophils # (auto) 0.1 uL; Eosinophils % (auto) 0.7 % (0.0-7.0); Hematocrit 27.7 % (36.0-46.0); Hemoglobin 8.8 g/dL (12.2-16.2); Lymphocytes # (auto) 1.2 uL; Lymphocytes % (auto) 11.6 % (10.0-50.0); Mean Corpuscular Hemoglobin 28.1 pg (28.0-32.0); Mean Corpuscular Hgb Conc. 31.9 g/dL (32.0-36.0); Mean Corpuscular Volume 88.2 fL (80.0-100.0); Monocytes # (auto) 0.7 uL; Monocytes % (auto) 6.8 % (0.0-12.0); Neutrophils # (auto) 8.5 uL; Neutrophils % (auto) 80.2 % (37.0-80.0); Nucleated Red Blood Cells % 0.3 %; Platelet Count (auto) 204 10^3/uL (140-450); Red Blood Cells 3.14 10^6/uL (4.0-5.20); White Blood Cell 10.6 10^3/uL (4.4-10.8)
--- NOTE | 2019-02-22 15:17 | NUR ---
dr. you rounded on pt. i showed him pt's left upper arm swelling, he says arm swelling feels like a hematoma and it needs to be ultrasound. he agreed to keep both arms elevated and to apply warm compress to lt arm.
--- NOTE | 2019-02-22 15:31 | NUR ---
received called from us stating that pt has a partial thrombus on the RT brachial vein, i notified Dr. Jhaveri who is still rounding in the unit. he states pt is already being managed with Coumadin and we might have to switch pt to Heparin if pt's family decides to trach patient. pt's family still have to discuss among themselves pt's poc.
[2019-02-22] MEDS ORDERED: WARFARIN SODIUM 2.5 MG TAB PO ONE (17:00)
[2019-02-22] MEDS: PROPOFOL 100 ML IV SCH (17:35)
[2019-02-22] MEDS: fentaNYL Drip 2500mCg/250mlNS 250 ML IV SCH (17:35)
--- NOTE | 2019-02-22 18:06 | NUR ---
Respiratory note: RECEIVED PT ON VENT V21,VENT TO ETT. VENT CONNECTED TO RED OUTLET AND O2 SOURCE. ALARMS ARE SET AND AUDIBLE. AMBU BAG AND MASK. BS ARE COURSE SXD SMALL THICK CREAMY SECRETIONS. MED NEB TX GIVEN INLINE WITHOUT ADVERSE REACTION NOTED. PTS CURRENT TEMP IS 99.3F. RT NAME AND PAGER ASSIGNMENT WRITTEN ON PTS ROOM BOARD. WILL CONTINUE TO MONITOR Q2H.
--- NOTE | 2019-02-22 19:10 | NUR ---
OPEN ASSUMED CARE OF FEMALE INTUBATED AND NOT ON SEDATION. PT LAYING IN BED WITH EYES CLOSED BUT OPENS EYES SPONTANEOUSLY, ABLE TO MOVE RIGHT HAND. UNABLE TO MOVE OTHER EXTREMITIES. TOLERATING VENTILATOR, LUNGS COARSE THROUGHOUT. LAVAGED AND SUCTIONED FOR THICK CREAMY SECRETIONS. PT 100% V-PACED ON SUPERVISOR SHED WORKERS. SCD TO LEFT LEG AND BP CUFF TO RIGHT LEG. HEEL PROTECTORS TO BLE. GENERALIZED EDEMA AND + 2 PITTING TO RIGHT HAND, +1 PITTING TO LEFT HAND, +1 PITTING EDEMA TO BOTH ANKLES. ABD SOFT WITH ACTIVE BOWEL SOUNDS AND PASSING GAS. PEG TUBE IN PLACE WITH INSERTION SITE CLEAR WITH DRY DRESSING. PT TOLERATION GLUCERNA FEEDINGS. SWANSON CATHETER PATENT AND DRAINING YELLOW URINE TO GRAVITY. 2 INTACT DIME SIZED BLISTERS TO THE TOP OF RIGHT HAND. BRUISING TO BOTH ARMS, LEFT CHEST, RIGHT UPPER BACK, AND ABD. SACRAL OPTIFOAM IN PLACE PREVENTATIVE. PILLOWS USED TO OFFLOAD BONY PROMINENCES AND UPPER EXTREMITIES. SIDE RAILS UP X2 AND BED IN LOWEST LOCKED POSITION FOR PT SAFETY. HOB ELEVATED >30 DEGREES. NO INDICATION OF PAIN OBSERVED. PT IN FULL VIEW OF RN STATION. VITAL SIGNS STABLE. WILL CONTINUE TO MONITOR.
--- NOTE | 2019-02-22 19:35 | NUR ---
REPORT GIVEN TO ARIEL MUSE. BED SIDE CHECK DONE.
--- NOTE | 2019-02-22 20:05 | NUR ---
US OF LT UPPER ARM REVIEWED. PT'S ARM IMPROVING. WILL CONTINUE ELEVATING ARM AND APPLYING WARM COMPRESS INDICATED BY DR. MARQUEZ.
--- NOTE | 2019-02-22 20:15 | NUR ---
Respiratory note: AT BEDSIDE FOR ROUTINE VENT CHECK. NO VENT CHANGES MADE AT THIS TIME. PTS CURRENT TEMP IS 99.5F. WILL CONTINUE TO MONITOR.
--- NOTE | 2019-02-22 22:30 | NUR ---
Respiratory note: AT BEDSIDE FOR ROUTINE VENT CHECK. NO VENT CHANGES MADE AT THIS TIME. PTS CURRENT TEMP IS 99.5F. WILL CONTINUE TO MONITOR.
[2019-02-23] VITALS (48 sets, daily range): BP systolic 113–148; BP diastolic 40–89
--- NOTE | 2019-02-23 00:09 | NUR ---
Respiratory note: AT BEDSIDE FOR ROUTINE VENT CHECK. NO VENT CHANGES MADE AT THIS TIME. PTS CURRENT TEMP IS 99.3F. WILL CONTINUE TO MONITOR.
--- NOTE | 2019-02-23 02:14 | NUR ---
Respiratory note: AT BEDSIDE FOR ROUTINE VENT CHECK. NO SXD DONE AT THIS TIME. PTS CURRENT TEMP IS 99.3F. WILL CONTINUE TO MONITOR.
[2019-02-23] MEDS: InsuLIN REG 1unit/0.01ml Soln (100units/ml) SC SCH ×5 (03:39→20:00)
[2019-02-23] MEDS: ACCU-CHEK COMFORT CURVE STRIP VI SCH ×5 (03:39→20:00)
[2019-02-23 03:50] LABS: INR 1.97 (0.9-1.15); Partial Thromboplastin Time 30.4 sec (23.64-32.05)
[2019-02-23 03:53] LABS: BUN/Creatinine Ratio 53.8; Potassium 5.3 mmol/L (3.5-5.1)
[2019-02-23 04:02] LABS: Basophils # (auto) 0.1 uL; Basophils % (auto) 0.8 % (0.0-2.0); Eosinophils # (auto) 0.1 uL; Eosinophils % (auto) 1.1 % (0.0-7.0); Hematocrit 28.7 % (36.0-46.0); Hemoglobin 8.4 g/dL (12.2-16.2); Lymphocytes # (auto) 1.2 uL; Lymphocytes % (auto) 12.5 % (10.0-50.0); Mean Corpuscular Hemoglobin 27.8 pg (28.0-32.0); Mean Corpuscular Hgb Conc. 29.3 g/dL (32.0-36.0); Mean Corpuscular Volume 94.7 fL (80.0-100.0); Monocytes # (auto) 0.7 uL; Monocytes % (auto) 7.4 % (0.0-12.0); Neutrophils # (auto) 7.7 uL; Neutrophils % (auto) 78.2 % (37.0-80.0); Nucleated Red Blood Cells % 1.2 %; Platelet Count (auto) 185 10^3/uL (140-450); Red Blood Cells 3.03 10^6/uL (4.0-5.20); White Blood Cell 9.9 10^3/uL (4.4-10.8)
[2019-02-23 04:05] LABS: Red Cell Distribution Width 21.7 % (11.8-14.3)
--- NOTE | 2019-02-23 04:16 | NUR ---
Respiratory note: At bedside for end of shift vent check. Current temp is 99.1f. No changes made will have day shift RT continue poc.
--- NOTE | 2019-02-23 04:24 | NUR ---
bed bath and partial linen change done at this time. skin assessed for any changes. cleaned with hcg wipes. tolerated well. vital signs stable. will continue to monitor.
[2019-02-23] MEDS: FREE WATER GT SCH ×3 (05:58→17:21)
[2019-02-23] MEDS: MEROPENEM 1GM IVPB 100 ML IV SCH ×3 (05:59→21:30)
[2019-02-23] MEDS: IPRATROPIUM BROM 0.5 MG/2.5ML INH SOL NEB SCH ×3 (06:00→17:46)
[2019-02-23] MEDS: ALBUTEROL SULF 2.5 MG/0.5ML(0.5%) NEB SOLN NEB SCH ×3 (06:00→17:46)
[2019-02-23] MEDS ORDERED: SODIUM ZIRCONIUM CYCL 10 GM PAK PO ONE (06:15)
--- NOTE | 2019-02-23 06:15 | NUR ---
hospitalist paged hospitalist regarding k of 5.3 this morning. new orders received. will carry out.
[2019-02-23] MEDS: INSULIN LANTUS (GLARGINE) 1 /0.01ml (100units/ml) SC SCH ×2 (06:36→21:30)
--- NOTE | 2019-02-23 08:40 | NUR ---
I called [facility] and left message with traffic warehouse supervisor asking about bed availability. I called [facility] and left message asking about bed availability. I called [facility] and spoke with Shelby, she said they have no ICU beds and they are at capacity.
--- NOTE | 2019-02-23 08:46 | NUR ---
PT at bedside.
--- NOTE | 2019-02-23 08:46 | NUR ---
Called [facility] and spoke with material handling warehouse supervisor Christopher-he said no ICU beds available. I called [facility] and spoke with Shasta in bed control, they have no ICU beds available and have several patients in their ER waiting for a bed. I called [facility] and left message asking about bed availability.
[2019-02-23] MEDS: FLUCONAZOLE 200MG/100ML 100 ML IV SCH (09:54)
[2019-02-23] MEDS: FUROSEMIDE 40 MG/4 ML VIAL IV SCH (09:55)
[2019-02-23] MEDS: amLODIPine BESYLATE 5 MG TAB PO SCH (09:55)
[2019-02-23] MEDS ORDERED: LACTULOSE 20Gm/30ML SOLN PO ONE (10:45)
[2019-02-23] MEDS ORDERED: FUROSEMIDE 40 MG/4 ML VIAL IV ONE ×2 (10:45→16:00)
--- NOTE | 2019-02-23 13:08 | NUR ---
Family member at bedside.
--- NOTE | 2019-02-23 13:56 | NUR ---
Nutrition Follow-up Notes Wt.: 86.4 kg today. Pt remains intubated, non-sedated, no immediate family member at bedside when rounded this morning. Pt's currently NPO with EN support of Glucerna 1.2 Bayron @ 60 ml/hr providing 1728 kcal, 86 gms pro, 1159 ml free water, tolerates feeding well, no residuals noted by RN this morning. Pt with adequate EN support d/t high initiation rate delivery of concentrated formula aeb current EN infusion meets 91% to 111% of est caloric needs and 76% to 99% of est protein needs. Est. Needs CBW(87 kg): 6974-8183 kcals (18-22 kcal/kgBW) and 87-113 gms/day (1.0-1.3 gm/kg BW reassessed d/t severe hypoalbuminemia)Will continue to monitor pertinent labs and reassess nutrient need prn Labs: Gluc 140 H, Na 135 L, K 5.3 L, BUN 28 H, Cr 0.52 L, Ca 8.0 L; Tpro 5.6 L, Alb 1.6 L Skin: Tyrese scale 13, mod risk, pt's left right hand intact blisters, left right arms bruised per documentation analyst. Pls refer to latest oil exploration engineer's notes for further details GI: Pt had 1 BM yesterday per documentation analyst. PES: Increased nutrient needs r/t acute/chronic medical condition aeb intubated, severe hypoalbuminemia, NPO. Altered nutrition related lab values r/t current/chronic medical condition aeb hyperglycemia, hypercapnia, hyperchloremia, elev. BUN ALP, hypocalcemia and severe hypoalbuminemia Obesity r/t food intake more than body requirement aeb 159% IBW, BMI 32.8 kg/m2 and increased body adiposity Will continue to monitor NPO status, EN tolerance, skin status, pertinent labs and weight trend. F/u in 2 to 3 days. Rec.: 1.) If still NPO with EN support, consider gradual increase on feeding rate of Glucerna 1.2 Bayron @ 65 ml/hr goal rate as tolerated when medically appropriate. 2.) If Albumin continues trending down, consider Prostat 1 pkt BID. 3.) Consider daily MVI with minerals and Asc acid 500 mgs BID. 4.) Advance gradually to oral diet when medically appropriate. 5.) Refer pt to CDE/RD for further nutrition education and weight monitoring upon discharge. 6.) Continue current plan of care.
[2019-02-23 15:53] LABS: Calcium 7.8 mg/dL (8.5-10.1); Potassium 3.6 mmol/L (3.5-5.1)
[2019-02-23 15:56] LABS: BUN/Creatinine Ratio 45.6
[2019-02-23] MEDS ORDERED: WARFARIN SODIUM 5 MG TAB PO ONE (17:00)
[2019-02-23] MEDS: MORPHINE SULFATE 4 MG/ML SYR/VIAL IV PRN (17:21)
--- NOTE | 2019-02-23 17:22 | NUR ---
Family member states, patient blinked her eyes to say she was in pain. Morphine 1mg IVP given per PRN orders.
--- NOTE | 2019-02-23 19:00 | NUR ---
Report received from ARIEL Brown. Will continue with POC; and, will continue to monitor VS & clinical status.
--- NOTE | 2019-02-23 21:45 | NUR ---
Insulin Lantus 15 units HELD due to accucheck 63 mg/dl. Reviewed accucheck trend, 120-150.
[2019-02-24] VITALS (54 sets, daily range): BP systolic 119–154; BP diastolic 41–64
--- NOTE | 2019-02-24 | NUR ---
Glucerna 1.2 TF changed and resumed TF at 60 ml/hr.
--- NOTE | 2019-02-24 | NUR ---
Glucascan 137 mg/dl and covered with Regular Insulin 2 units SQ Right Deltoid. Free water 200 ml through G-Tube.
--- NOTE | 2019-02-24 04:00 | NUR ---
Glucascan 153 mg/dl and covered with Regular Insulin 2 units SQ Right Deltoid.
[2019-02-24 04:06] LABS: Basophils # (auto) 0.1 uL; Basophils % (auto) 0.9 % (0.0-2.0); Eosinophils # (auto) 0.1 uL; Eosinophils % (auto) 0.9 % (0.0-7.0); Hematocrit 27.4 % (36.0-46.0); Hemoglobin 8.8 g/dL (12.2-16.2); Lymphocytes # (auto) 1.1 uL; Lymphocytes % (auto) 10.9 % (10.0-50.0); Mean Corpuscular Hemoglobin 28.2 pg (28.0-32.0); Mean Corpuscular Hgb Conc. 32.1 g/dL (32.0-36.0); Monocytes # (auto) 0.7 uL; Monocytes % (auto) 6.9 % (0.0-12.0); Neutrophils # (auto) 8.4 uL; Neutrophils % (auto) 80.4 % (37.0-80.0); Platelet Count (auto) 216 10^3/uL (140-450); Red Blood Cells 3.11 10^6/uL (4.0-5.20); White Blood Cell 10.5 10^3/uL (4.4-10.8)
[2019-02-24 04:16] LABS: Red Cell Distribution Width 21.5 % (11.8-14.3)
[2019-02-24] MEDS: ACCU-CHEK COMFORT CURVE STRIP VI SCH ×7 (04:16→23:53)
[2019-02-24 04:18] LABS: INR 3.48 (0.9-1.15)
[2019-02-24] MEDS: InsuLIN REG 1unit/0.01ml Soln (100units/ml) SC SCH ×7 (04:19→23:53)
[2019-02-24 04:23] LABS: Potassium 3.8 mmol/L (3.5-5.1)
[2019-02-24] MEDS: FREE WATER GT SCH ×5 (05:25→23:33)
[2019-02-24] MEDS: MEROPENEM 1GM IVPB 100 ML IV SCH ×3 (05:25→21:42)
[2019-02-24] MEDS: INSULIN LANTUS (GLARGINE) 1 /0.01ml (100units/ml) SC SCH ×2 (07:01→22:22)
[2019-02-24] MEDS: ALBUTEROL SULF 2.5 MG/0.5ML(0.5%) NEB SOLN NEB SCH ×3 (07:17→18:20)
[2019-02-24] MEDS: IPRATROPIUM BROM 0.5 MG/2.5ML INH SOL NEB SCH ×3 (07:18→18:20)
--- NOTE | 2019-02-24 07:55 | NUR ---
OPENING Report received from Rahul GEORGE. Care initiated and initial assessment complete.
--- NOTE | 2019-02-24 09:10 | NUR ---
PARTIAL LINEN CHANGE
[2019-02-24] MEDS: amLODIPine BESYLATE 5 MG TAB PO SCH (10:35)
[2019-02-24] MEDS: FUROSEMIDE 40 MG/4 ML VIAL IV SCH (10:35)
[2019-02-24] MEDS: MORPHINE SULFATE 4 MG/ML SYR/VIAL IV PRN ×2 (10:36→23:33)
--- NOTE | 2019-02-24 12:00 | NUR ---
BEDSIDE Dr. Tello bedside. No new orders received. MD speaking with patients daughter about plan of care.
--- NOTE | 2019-02-24 12:23 | NUR ---
WOUND CARE NOTE: Wound care in to see patient for skin integrity monitoring. Patient continue resting in ICU bed in Rm. 110. She's intubated and mechanically ventilated. Patient open her eyes spontaneously and able to follow simple direction. Patient appears to be in no pain using Inman Esparza Faces Pain Scale. her Tyrese score is 13. Skin assessment done with the assistance of patient's nurse, ARIEL Schumacher. No open wound noted other than multi intact ecchymosis to patient's bilateral arm; area is clean and dry, left open to air. Noted patient's Rt arm is more edematous in comparison to LUE. No pressure injury noted. Patient is receiving BID/PRN cleaning and application of Barrier cream to sacral,buttocks as preventative. Repositioned patient for comfort facing her Lt. side, redistributed pressure points with pillows. Patient tolerated well. ARIEL Schumacher at bedside. RECOMMENDATION: Continuation of all wound care orders prescribed by order, continue with skin/wound preventative plan of care, continue monitoring by wound care while patient is mechanically ventilated. Addendum: 02/24/19 at 1628 by Lenora Ragland RN Amended: Links added.
--- NOTE | 2019-02-24 19:15 | NUR ---
OPENING SHIFT RECEIVED REPORT FROM DAY SHIFT RN. ASSUMED CARE OF PATIENT. PATIENT IN BED VENTED WITH NO SIGNS OR SYMPTOMS OF SOB, PAIN OR DISTRESS. CURRENT VENT SETTINGS: 7.5 24 AT THE LIP, AC 12/TV450/PEEP5/30% FI02. RIGHT UPPER ARM MIDLINE - CLEAN/DRY/INTACT. LEFT ABDOMINAL PEG TUB - PATENT AND VERIFIED WITH 10CC OF AIR, MINIMAL RESIDUAL. SWANSON HUNG TO GRAVITY. REPOSITIONED FOR COMFORT. BED IN LOWEST POSITION, SIDE RAILS UP X2. WILL CONTINUE TO MONITOR.
[2019-02-25] VITALS (50 sets, daily range): BP systolic 124–171; BP diastolic 41–88
--- NOTE | 2019-02-25 01:55 | NUR ---
MORNING CARE / RIGHT HAND BLISTER PERFORMED MORNING CARE WITH CHG WIPES AND WASH CLOTHS TO THE FACE. PARTIAL LIEN CHANGE AND GOWN CHANGED. ORAL AND SWANSON CARE PERFORMED. REPOSITIONED FOR COMFORT. SKIN REASSESSED AT THIS TIME. NOTED RIGHT HAND BLISTER POPPED, WOUND CARE PICTURES TAKEN AND DRESSED WITH OPTIFOAM. WILL CONTINUE TO MONITOR.
[2019-02-25] MEDS: ACCU-CHEK COMFORT CURVE STRIP VI SCH ×5 (04:00→23:44)
[2019-02-25 04:36] LABS: Basophils # (auto) 0.1 uL; Basophils % (auto) 0.8 % (0.0-2.0); Eosinophils # (auto) 0.1 uL; Eosinophils % (auto) 1.2 % (0.0-7.0); Hematocrit 28.5 % (36.0-46.0); Hemoglobin 8.7 g/dL (12.2-16.2); Lymphocytes # (auto) 1.1 uL; Lymphocytes % (auto) 12.4 % (10.0-50.0); Mean Corpuscular Hemoglobin 27.3 pg (28.0-32.0); Mean Corpuscular Hgb Conc. 30.5 g/dL (32.0-36.0); Mean Corpuscular Volume 89.5 fL (80.0-100.0); Monocytes # (auto) 0.7 uL; Monocytes % (auto) 7.4 % (0.0-12.0); Neutrophils # (auto) 7.1 uL; Neutrophils % (auto) 78.2 % (37.0-80.0); Nucleated Red Blood Cells % 0.9 %; Platelet Count (auto) 244 10^3/uL (140-450); Red Blood Cells 3.19 10^6/uL (4.0-5.20); White Blood Cell 9.1 10^3/uL (4.4-10.8)
[2019-02-25] MEDS: InsuLIN REG 1unit/0.01ml Soln (100units/ml) SC SCH ×5 (04:37→23:44)
[2019-02-25 04:42] LABS: INR 3.44 (0.9-1.15)
[2019-02-25 04:49] LABS: Potassium 4.1 mmol/L (3.5-5.1)
[2019-02-25 04:56] LABS: Calcium 8.2 mg/dL (8.5-10.1)
[2019-02-25] MEDS: MEROPENEM 1GM IVPB 100 ML IV SCH ×3 (05:53→21:38)
[2019-02-25] MEDS: FREE WATER GT SCH ×4 (05:53→23:44)
[2019-02-25] MEDS: ALBUTEROL SULF 2.5 MG/0.5ML(0.5%) NEB SOLN NEB SCH ×3 (06:01→17:59)
[2019-02-25] MEDS: IPRATROPIUM BROM 0.5 MG/2.5ML INH SOL NEB SCH ×3 (06:01→17:59)
[2019-02-25] MEDS: INSULIN LANTUS (GLARGINE) 1 /0.01ml (100units/ml) SC SCH ×2 (06:23→21:38)
--- NOTE | 2019-02-25 07:07 | NUR ---
END OF SHIFT REPORT GIVEN TO DAY SHIFT RN. CARE ENDORSED.
--- NOTE | 2019-02-25 07:45 | NUR ---
OPENING Report received from Gilbert GEORGE. Care initiated and initial assessment completed.
[2019-02-25] MEDS: amLODIPine BESYLATE 5 MG TAB PO SCH (09:56)
[2019-02-25] MEDS: FUROSEMIDE 40 MG/4 ML VIAL IV SCH (09:57)
--- NOTE | 2019-02-25 10:48 | NUR ---
BEDSIDE Dr. Mccurdy bedside. No new orders received. Waiting for family to make a decision on route of care.
[2019-02-25] MEDS ORDERED: DEXTROSE (50%) 50ML SYRG IV PRN (11:45)
[2019-02-25] MEDS: MORPHINE SULF INJ 2 MG/ML SYRINGE 1ML IV PRN ×2 (14:40→19:04)
--- NOTE | 2019-02-25 16:28 | NUR ---
Nutrition Follow-up Notes Wt.: 86.4 kg based on bed scale today. Noted 8.1 kg weight gain likely d/t ? fluid retention aeb positive I & Os for past few days. Pt remains intubated, non-sedated, no immediate family member at bedside during rounds this morning. Pt's currently NPO with EN support of Glucerna 1.2 Bayron @ 60 ml/hr providing 1728 kcal, 86 gms pro, 1159 ml free water, tolerates feeding well, no residuals noted by RN this morning. Pt with adequate EN support d/t high initiation rate delivery of concentrated formula aeb current EN infusion meets 91% to 111% of est caloric needs and 76% to 99% of est protein needs. Est. Needs CBW(87 kg): 1919-4705 kcals (18-22 kcal/kgBW) and 87-113 gms/day (1.0-1.3 gm/kg BW reassessed d/t severe hypoalbuminemia)Will continue to monitor pertinent labs and reassess nutrient need prn Labs: Gluc 160 H, BUN 26 H, Cr 0.51 L, Ca 8.2 L; Tpro 5.6 L, Alb 1.6 L Skin: Tyrese scale 13, mod risk, pt's left right hand intact blisters, left right arms bruised per pharmacy director. Pls refer to latest reviewer sales's notes for further details GI: Pt had 1 BM 02/22/19 per pharmacy director. PES: Increased nutrient needs r/t acute/chronic medical condition aeb intubated, severe hypoalbuminemia, NPO. Altered nutrition related lab values r/t current/chronic medical condition aeb hyperglycemia, hypercapnia, hyperchloremia, elev. BUN ALP, hypocalcemia and severe hypoalbuminemia Obesity r/t food intake more than body requirement aeb 159% IBW, BMI 32.8 kg/m2 and increased body adiposity Will continue to monitor NPO status, EN tolerance, skin status, pertinent labs and weight trend. F/u in 2 to 3 days. Rec.: 1.) If still NPO with EN support, consider gradual increase on feeding rate of Glucerna 1.2 Bayron @ 65 ml/hr goal rate as tolerated when medically appropriate. 2.) If Albumin continues trending down, consider Prostat 1 pkt BID. 3.) Consider daily MVI with minerals and Asc acid 500 mgs BID. 4.) Advance gradually to oral diet when medically appropriate. 5.) Refer pt to CDE/RD for further nutrition education and weight monitoring upon discharge. 6.) Continue current plan of care.
[2019-02-26] VITALS (37 sets, daily range): BP systolic 125–158; BP diastolic 30–77
--- NOTE | 2019-02-26 04:30 | NUR ---
MORNING CARE PERFORMED MORNING CARE WITH CHG WIPES AND WASH CLOTHS TO THE FACE. PARTIAL LIEN CHANGE AND GOWN CHANGED. ORAL AND SWANSON CARE PERFORMED. REPOSITIONED FOR COMFORT. SKIN REASSESSED AT THIS TIME. WILL CONTINUE TO MONITOR.
[2019-02-26 04:52] LABS: INR 2.76 (0.9-1.15)
[2019-02-26] MEDS: FREE WATER GT SCH ×2 (05:47→11:38)
[2019-02-26] MEDS: MEROPENEM 1GM IVPB 100 ML IV SCH (05:47)
[2019-02-26] MEDS: ACCU-CHEK COMFORT CURVE STRIP VI SCH ×2 (06:05→11:39)
[2019-02-26] MEDS: InsuLIN REG 1unit/0.01ml Soln (100units/ml) SC SCH ×2 (06:05→11:39)
[2019-02-26] MEDS: INSULIN LANTUS (GLARGINE) 1 /0.01ml (100units/ml) SC SCH (06:27)
[2019-02-26] MEDS: ALBUTEROL SULF 2.5 MG/0.5ML(0.5%) NEB SOLN NEB SCH ×2 (06:27→12:08)
[2019-02-26] MEDS: IPRATROPIUM BROM 0.5 MG/2.5ML INH SOL NEB SCH ×2 (06:27→12:08)
--- NOTE | 2019-02-26 07:43 | NUR ---
END OF SHIFT REPORT GIVEN TO DAY SHIFT RN. CARE ENDORSED.
--- NOTE | 2019-02-26 09:30 | NUR ---
PHYSICAL THERAPY Physical therapist at bedside to perform passive range of motion.
[2019-02-26] MEDS: amLODIPine BESYLATE 5 MG TAB PO SCH (09:48)
[2019-02-26] MEDS: FUROSEMIDE 40 MG/4 ML VIAL IV SCH (09:48)
[2019-02-26] MEDS: MORPHINE SULF INJ 2 MG/ML SYRINGE 1ML IV PRN ×6 (12:48→21:35)
--- NOTE | 2019-02-26 13:20 | NUR ---
Paged Dr. Mccurdy regarding patient's family have decided to terminal wean patient, awaiting for MD to call back.
--- NOTE | 2019-02-26 13:25 | NUR ---
MD Dr. Mccurdy at bedside updated on patient condition and aware that family has decided on terminal wean today. MD signed paperwork after speaking to . Will carry out order per MD once patients family is ready.
--- NOTE | 2019-02-26 13:30 | NUR ---
DELORIS Called dietary and informed them this RN would need a comfort cart for room 111 for a terminal wean. Awaiting for cart to arrive.
--- NOTE | 2019-02-26 15:15 | NUR ---
MD Dr. Nguyen at bedside updated on patient condition and aware of terminal wean when family is ready.
--- NOTE | 2019-02-26 16:30 | NUR ---
TERMINAL WEANED Patient given Morphine 2 mg per MD orders before RT Marybeth terminal weaned patient off ventilator. Patient tolerated well. Patient does not appear to be in an distress, appears to be comfortable. Will continue to monitor patient.
--- NOTE | 2019-02-26 16:40 | NUR ---
PT WAS TERMINAL EXTUBATED AT THIS TIME. FAMILY MEMBERS AT BEDSIDE AND ARIEL LITTLE.
[2019-02-26] MEDS: LORazepam 2MG/ML-1ML VIAL IV PRN ×4 (17:08→21:35)
--- NOTE | 2019-02-26 19:30 | NUR ---
OPENING SHIFT NOTE: A&OxO, with spontaneous eye opening. Patient is a terminal wean from ventilator at 1640. Currently on RA sating 82%; bedrest with flaccid extremities, and pain level 0/10 WB. Bed locked in lowest position, side rails up x2, and call light next to patient. IV midline in right upper extremity inserted on 02/07/19. Marques inserted on 02/06/19 for prolonged immobility. PEG tube clamped. DNR status with comfort measures only. Patient is to be transported to room 207 with ARIEL Callahan. Mouth care performed at this time.
--- NOTE | 2019-02-26 19:45 | NUR ---
Report called to Sindy GEORGE.
--- NOTE | 2019-02-26 20:10 | NUR ---
TRANSFER TO MED/SURG ROOM 207 WITH NIURKA GEORGE.
--- NOTE | 2019-02-26 20:20 | NUR ---
ICU patient trans to floor SBAR reveived from Martha Forde STITCHING MACHINE FEEDER OR OFFBEARER . DELONTE MATSON transfered to 207 via bed on alarm security or surveillance monitor. All patient medications and personal belongings transfered with patient to receiving floor. Patient care transfered to Sindy GEORGE. NOTE: Fall and safety precautions in place. Call light within reach. Family members at bedside.
--- NOTE | 2019-02-26 21:30 | NUR ---
OXYGEN In to do vitals at this time with SALES AND SERVICE ENGINEER, oxygen saturation 70% on room air. Educed family on oxygen saturation percentage and supplemental oxygen would not prolong life, just keep patient comfortable. Family stated they had been told otherwise, but if oxygen would not prolong, then ok to place patient on oxygen. Patient was placed on 2.5L NC, O2 saturation increased to 89%. Patient resting quietly with eyes closed, even and unlabored breathing. Will continue to monitor
--- NOTE | 2019-02-26 22:15 | NUR ---
FAMILY Received call from family, stating they don't want patient to be on supplemental oxygen and they were told it would prolong life. Attempted to educate family that oxygen would not prolong life, just keep patient comfortable, but family insisted oxygen be removed. Oxygen turned off and cannula removed.
[2019-02-27 05:00] VITALS: BP 155/56
--- NOTE | 2019-02-27 06:20 | NUR ---
FAMILY Received call from patient's sister, Marychuy. After verifying password, updated on patient's status. Educated on oxygen saturation this morning (see vitals) and how oxygen supplementation would not prolong life. Received Marychuy's permission to place patient on oxygen supplementation, 2.5L via nasal cannula.
--- NOTE | 2019-02-27 07:45 | NUR ---
Opening Shift Note Assumed care of patient, responsive to name, eye opening. No S/S of distress/SOB or pain. Bed in lowest/locked position, bed rails up x2, call light within reach. Comfort measures in place. Patient respirations 26bpm, labored, using accessory muscles. Patient on 2.5l N/C per family request. Will continue to monitor for changes Q1hr and PRN.
[2019-02-27 08:33] VITALS: BP 152/63
--- NOTE | 2019-02-27 09:30 | NUR ---
Pt is on comfort measures. She will be D/C'd from Physical Therapy per primary therapist. Addendum: 02/27/19 at 1159 by Mello Andre PTA Amended: Links added.
--- NOTE | 2019-02-27 10:00 | NUR ---
MD ROUNDS DR GRAHAM AT BEDSIDE DISCUSSING POC WITH . WILL CONTINUE TO MONITOR
[2019-02-27] MEDS: LORazepam 2MG/ML-1ML VIAL IV PRN ×5 (10:15→23:53)
[2019-02-27] MEDS: MORPHINE SULF INJ 2 MG/ML SYRINGE 1ML IV PRN ×4 (12:46→21:47)
[2019-02-27 12:49] VITALS: BP 144/72
[2019-02-27 17:15] VITALS: BP 143/63
--- NOTE | 2019-02-27 19:30 | NUR ---
RECEIVED PATIENT IN BED, UNCONSCIOUS. FAST SHALLOW BREATHING NOTED. FAMILY IS IN THE ROOM. NO CHANGES ACCORDING TO AM SHIFT RN EXCEPT THAT PATIENT IS NOT RESPONSIVE ANYMORE. FAMILY DECIDED FOR ME NOT TO PERFORM ASSESSMENT. WILL REPOSITION PATIENT GENTLY. PATIENT IS PACED ON THE MONITOR. WILL DO RESUME COMFORT ORDERED BY MD AND FAMILY'S REQUEST. WILL KEEP AN EYE ON PATIENT.
[2019-02-28] MEDS: MORPHINE SULF INJ 2 MG/ML SYRINGE 1ML IV PRN ×2 (03:37→08:21)
[2019-02-28] MEDS: LORazepam 2MG/ML-1ML VIAL IV PRN ×2 (04:55→10:21)
--- NOTE | 2019-02-28 06:32 | NUR ---
ON BED, ASLEEP. PATIENT OPENS EYES AT TIMES WITH TOUCH. OTHERWISE, NO CHANGES NOTED. WILL ENDORSE TO AM SHIFT NURSE.
--- NOTE | 2019-02-28 07:45 | NUR ---
Opening Shift Note Assumed care of patient, responsive to name, eye opening. No S/S of distress/SOB or pain. Bed in lowest/locked position, bed rails up x2, call light within reach. Comfort measures in place. Patient respirations 40 bpm, labored, using accessory muscles. Patient on 1.0L N/C per family request. Will continue to monitor for changes Q1hr and PRN.
[2019-02-28 09:00] VITALS: BP 148/62
--- NOTE | 2019-02-28 11:15 | NUR ---
ROUNDS FAMILY AT BEDSIDE. PATIENT HAS NO RESPIRATIONS, NO LUNG SOUNDS AUSCULTATED. COOL TO THE TOUCH. NOTIFIED MD JOSE.
--- NOTE | 2019-02-28 11:30 | NUR ---
MD ROUNDS DR JOSE AT BEDSIDE ASSESSING PATIENT. DR JOSE UPDATED. PRONOUNCED PATIENT AT 1115
--- NOTE | 2019-02-28 11:44 | NUR ---
[facility] NOTIFIED OF THE . REFERENCE #[id number]
--- NOTE | 2019-02-28 12:20 | NUR ---
[facility] CORONERS OFFICE CALLED. AWAITING RETURN PHONE CALL
--- NOTE | 2019-02-28 14:50 | NUR ---
[facility] RECEIVED CALL FROM [facility] RE: THEY WILL NO LONGER BE PURSUING TISSUE DONATIONS FOR PATIENT
--- NOTE | 2019-02-28 14:50 | NUR ---
[facility] RECEIVED PHONE CALL FROM [facility] RE: FAMILY REQUESTING TO RESUME CARE OF . NOTIFIED BOX OFFICE AGENT RN AWAITING CORONERS CALL AT THIS TIME. WILL CALL BACK WHEN RECEIVE CORONERS REPORT AT
--- NOTE | 2019-02-28 16:00 | NUR ---
FAMILY CALL CALLED , HERRERA, RE: PATIENT AND THAT THE TAVERN CAR ATTENDANT HAS NOT RETURNED CALL. INFORMED HERRERA THAT [facility] HAD BEEN IN CONTACT WITH RN. WILL NOTIFY HERRERA OF TAVERN CAR ATTENDANT'S CALL WHEN POSSIBLE.
--- NOTE | 2019-02-28 18:29 | NUR ---
[facility]ON[facility] FOLLOWED UP WITH [facility]ONERS OFFICE RE: . [facility] OFFICE STATED "THEY HAVE THE 'S INFORMATION, HOWEVER, THERE ARE STILL OTHER CALLS AHEAD, WILL CALL WHEN AVAILABLE." AWAITING RETURN PHONE CALL
--- NOTE | 2019-02-28 18:34 | NUR ---
A R SPECIALIST NOTIFIED A R SPECIALIST OF CORONERS CALL. HOUSE SUP ASKED RN TO CALL CORONERS OFFICE BACK IN RE: TO EITHER MOVING THE PATIENT TO THE [place] OR ICE THE PATIENT. WILL CALL AGAIN
--- NOTE | 2019-02-28 18:34 | NUR ---
[facility] CALL CALLED [facility] RE: PERMISSION TO EITHER TRANSPORT PATIENT TO THE [facility] [place] OR ICE THE PATIENT. [facility] PHONE LINE IS BUSY, WILL CALL WILMAN
--- NOTE | 2019-02-28 18:43 | NUR ---
[facility]ONERS SPOKE TO FRANCISCO AT [facility] OFFICE RE: REQUEST TO TRANSFER PATIENT OR ICE PATIENT. PER FRANCISCO, SHE WOULD PUT OUT A MESSAGE TO THE [facility]ON[facility] TO REACH OUT. AWAITING RETURN CALL
--- NOTE | 2019-02-28 19:00 | NUR ---
[facility] CORONERS RETURNED PHONE CALL. SPOKE WITH KALYAN MEI. ANSWERED ALL QUESTIONS. [facility]ERS RELEASED THE . CASE #[id number]. WILL NOTIFY FAMILY AND MORTUARY
--- NOTE | 2019-02-28 19:10 | NUR ---
FAMILY , HERRERA NOTIFIED OF [facility] RELEASE
--- NOTE | 2019-02-28 19:15 | NUR ---
ENDORSED ENDORSED CARE TO ARIEL RAVI
--- NOTE | 2019-02-28 19:15 | NUR ---
[facility] . ALL QUESTIONS/CONCERNS ANSWERED. PER ORIENTAL RUG REPAIRER, WILL BE PICKED UP FOR TRANSPORT WITHIN 60-90MINS
== END 2019-02-28 11:15 | disposition expired | DRG 207 ==
LOC: EDBD 10:55 → ER 10:57 → TELE 10:58 → DOU IN ICU 02-08 14:23 → ICU WEST 02-10 18:50 → CENTRAL 02-26 23:34
PROVIDERS: ADMIT Nurse Practitioner Acute Care; ATTEND Internal Medicine Nephrology
PROC: 5A09357 Assistance with Respiratory Ventilation, Less than 24 Consecutive Hours, Continuous Positive Airway Pressure (ICD-10-PCS; 2019-02-08)
PROC: 5A1955Z Respiratory Ventilation, Greater than 96 Consecutive Hours (ICD-10-PCS; 2019-02-09)
PROC: 0BH17EZ Insertion of Endotracheal Airway into Trachea, Via Natural or Artificial Opening (ICD-10-PCS; 2019-02-09)
PROC: 0DH63UZ Insertion of Feeding Device into Stomach, Percutaneous Approach (ICD-10-PCS; principal; 2019-02-17 10:00)
DX: J96.01 Acute respiratory failure with hypoxia (principal); G93.41 Metabolic encephalopathy; I50.23 Acute on chronic systolic (congestive) heart failure; I63.40 Cerebral infarction due to embolism of unspecified cerebral artery; J15.1 Pneumonia due to Pseudomonas; J15.6 Pneumonia due to other Gram-negative bacteria; J69.0 Pneumonitis due to inhalation of food and vomit; N17.0 Acute kidney failure with tubular necrosis; I50.33 Acute on chronic diastolic (congestive) heart failure; D68.69 Other thrombophilia; E44.0 Moderate protein-calorie malnutrition; E87.0 Hyperosmolality and hypernatremia; E87.3 Alkalosis; I13.0 Hypertensive heart and chronic kidney disease with heart failure and stage 1 through stage 4 chronic kidney disease, or unspecified chronic kidney disease; I48.92 Unspecified atrial flutter; I82.629 Acute embolism and thrombosis of deep veins of unspecified upper extremity; J44.0 Chronic obstructive pulmonary disease with (acute) lower respiratory infection; J98.11 Atelectasis; N30.00 Acute cystitis without hematuria; Z99.11 Dependence on respirator [ventilator] status; Z66 Do not resuscitate; E11.22 Type 2 diabetes mellitus with diabetic chronic kidney disease; E11.65 Type 2 diabetes mellitus with hyperglycemia; Z68.34 Body mass index [BMI] 34.0-34.9, adult; E66.9 Obesity, unspecified; E78.5 Hyperlipidemia, unspecified; E87.6 Hypokalemia; F03.90 Unspecified dementia, unspecified severity, without behavioral disturbance, psychotic disturbance, mood disturbance, and anxiety; F17.200 Nicotine dependence, unspecified, uncomplicated; D64.9 Anemia, unspecified; I25.10 Atherosclerotic heart disease of native coronary artery without angina pectoris; I48.91 Unspecified atrial fibrillation; N18.3 Chronic kidney disease, stage 3 (moderate); R13.10 Dysphagia, unspecified; Z51.5 Encounter for palliative care; Z79.4 Long term (current) use of insulin; Z79.82 Long term (current) use of aspirin; Z79.899 Other long term (current) drug therapy; Z82.49 Family history of ischemic heart disease and other diseases of the circulatory system; Z87.440 Personal history of urinary (tract) infections; Z95.1 Presence of aortocoronary bypass graft; Z95.2 Presence of prosthetic heart valve
CPT/HCPCS: 36415; 36600; 51702; 70450; 70551; 71045; 76881; 80048; 80053; 80202; 81001; 82533; 82805; 82962; 83036; 83605; 83735; 83880; 84100; 84443; 84484; 85007; 85025; 85027; 85610; 85730; 87040; 87070; 87077; 87081; 87086; 87186; 87205; 87804; 92610; 93005; 93306; 93886; 93970; 93971; 94002; 94003; 94640; 94644; 94660; 96374; 97110; 97530; 99291; A4618; C9113; G0378; J0690; J0696; J1450; J1815; J2001; J2185; J2250; J2405; J2543; J2704; J3480; J3490